=== PATIENT | male | born 1955 | race Caucasian/White ===

== ENCOUNTER 2020-10-12 17:34 | Outpatient (CLI) | payer MEDICARE, SELFPAY | END 2020-10-12 17:35 | disposition home or self-care (01) | LOC: ANHCOVIDVC 17:34 | PROVIDERS: PCP Internal Medicine | DX: Z23 Encounter for immunization (principal) | CPT/HCPCS: 0001A; 91300 ==

== ENCOUNTER 2020-11-02 17:35 | Outpatient (CLI) | payer MEDICARE, SELFPAY | END 2020-11-02 17:36 | disposition home or self-care (01) | LOC: ANHCOVIDVC 17:35 | PROVIDERS: PCP Internal Medicine | DX: Z23 Encounter for immunization (principal) | CPT/HCPCS: 0002A; 91300 ==

== ENCOUNTER 2021-03-25 09:17 | Inpatient (IN) | payer MEDICARE, MEDICAID, SELFPAY ==
[2021-03-25] VITALS (12 sets, daily range): BP systolic 97–121; BP diastolic 60–77; PULSE 57–84; RESP 14–20; TEMP 36.5–36.9; O2SAT 95–100; BMI 17.7
--- NOTE | ~2021-03-25 | XR_ITS ---
XR chest 2V 03/25/2021 11:03 Indication: Weight loss, nausea and vomiting Procedure: 2 view chest Comparison: No prior studies for comparison. Findings: Patchy bibasilar infiltrates, suspicious for pneumonia. Heart size normal. The lungs are hy perinflated which is consistent with, but not diagnostic of chronic obstructive pulmonary disease. Th ere is evidence for chronic granulomatous disease. No significant pleural effusion or pneumothorax. Impression: 1: Patchy bibasilar infiltrates, suspicious for pneumonia. Reviewed, dictated and finalized at location A. Impression: 1: Patchy bibasilar infiltrates, suspicious for pneumonia.
--- NOTE | ~2021-03-25 | US_ITS ---
EXAMINATION: US renal BI EXAM DATE: 03/26/2021 09:07 INDICATION: Acute kidney insufficiency. TECHNIQUE: Multiple grayscale and Doppler images of the kidneys were obtained (by a technologist who performed the scan) and subsequently reviewed. There is no prior study for comparison. FINDINGS: Right kidney: There is normal contour and echogenicity. It measures 8.8 x 6.0 x 4.8 centimeters. 6 m m cyst. There is no hydronephrosis. Left kidney: There is normal contour and echogenicity. It measures 11.3 x 5.1 x 5.5 centimeters. Th ere are no focal renal lesions identified. There is no hydronephrosis. Bladder unremarkable. IMPRESSION: 1. Sonographically unremarkable kidneys. Reviewed, dictated and finalized at location A.
--- NOTE | ~2021-03-25 | CT_ITS ---
EXAMINATION: CT chest abdomen pelvis wo con EXAM DATE: 03/25/2021 10:55 INDICATION: Weight loss . TECHNIQUE: Spiral CT of the chest, abdomen and pelvis was performed without contrast. Axial, lara l and sagittal images chest, abdomen and pelvis were reviewed. Coronal maximum intensity pixel image s of chest reviewed. The dose-length product (DLP) for this examination was 340.86 mGy-cm. The expo sure was tailored according to patient size (auto mA exposure control), and iterative reconstruction (ASIR) was used as additional dose reduction technique. There is no prior study for comparison. FINDINGS: CHEST: The lungs are hyperinflated which can be seen with chronic obstructive pulmonary disease (a c linical diagnosis of functional impairment), but is not diagnostic of it. There is mild to moderate e mphysema. Biapical scarring. Scattered bibasilar regions of ill-defined tree-in-bud airspace disease. This pattern typically seen with endobronchial spread of infectious process. Differential diagnosis includes aspiration, postinfectious residua, TB/FLORINA, hypersensitivity pneumonitis. There are no pleural or pericardial effusions. There is some endobronchial debris in right lower lo be segmental bronchi. There is no mediastinal, hilar or axillary lymphadenopathy. There is no pneu mothorax. Narrow cardiac silhouette from the hyperinflated lungs. Patient may have coronary artery stents. Calcified right hilar lymph nodes from prior granulomatous process. ABDOMEN PELVIS: Liver and splenic granulomata. Adrenal glands, pancreas are unremarkable. The gallbl adder is contracted but otherwise unremarkable. There is no nephrolithiasis or hydronephrosis. The prostate is unremarkable. Calcified vasa deferentia, possible diabetes. The bladder is unremarkable . There is no retroperitoneal or pelvic lymphadenopathy. There is moderate scattered arteriosclero tic disease. There are no findings to suggest appendicitis. The stomach and small bowel are unremarkable. There is moderate amount of colonic stool. There is moderate sigmoid colonic diverticulosis. There is no a djacent inflammatory change to suggest diverticulitis. No free intraperitoneal gas. There are no o steoblastic or osteolytic lesions identified. IMPRESSION: 1. Scattered regions tree-in-bud airspace disease often indicating endobronchial spread of infection such as tuberculosis or FLORINA. Some other possibilities above. 2. Emphysema and hyperinflation. 3. Moderate colonic stool and sigmoid diverticulosis. Reviewed, dictated and finalized at location B. IMPRESSION: 1. Scattered regions tree-in-bud airspace disease often indicating endobronchi al spread of infection such as tuberculosis or FLORINA. Some other possibilities ab ove. 2. Emphysema and hyperinflation. 3. Moderate colonic stool and sigmoid diverticulosis.
--- NOTE | 2021-03-25 10:02 | ECG_ITS ---
Measurements Intervals [place] Rate: 72 P: 87 [place]: 168 QRS: 57 QRSD: 105 T: 79 QT: 437 QTc: 479 Interpretive Statements SINUS RHYTHM SUPRAVENTRICULAR BIGEMINY POSSIBLE LEFT ATRIAL ENLARGEMENT BORDERLINE T WAVE ABNORMALITY- ANT/HIGH LAT LEADS BASELINE ARTIFACT- II, III ABNORMAL ECG Electronically Signed On 03-25-2021 10:27:34 CDT by Vipul Diaz D.O.
[2021-03-25 10:18] LABS: Hematocrit 41.3 % (42.0-52.0); Hemoglobin 13.9 g/dL (14.0-18.0); Mean Corpuscular HGB Conc 33.7 g/dl (32-36); Mean Corpuscular Hemoglobin 30.3 pg (26-34); Mean Platelet Volume 9.9 fl (7.4-10.4); Platelet Count Result 276 k/mm3 (150-375); Red Blood Count 4.59 M/mm3 (4.6-6.20); Red Cell Distribution Width 13.1 % (11.5-14.5); White Blood Count 20.7 K/mm3 (4.5-10.0)
[2021-03-25 10:36] LABS: Alanine Aminotransferase 22 U/L (4-50); Albumin Level 4.6 g/dL (3.5-5.1); Alkaline Phosphatase 77 U/L (38-126); Aspartate Amino Transferase 28 U/L (17-59); Bilirubin,Total 1.8 mg/dL (0.2-1.3); Blood Urea Nitrogen 68 mg/dL (9-20); Calcium 8.9 mg/dL (8.4-10.2); Carbon Dioxide > 40 mmol/L (22-30); Chloride 67 mmol/L (98-107); Estimated CRCL calculation 28 ml/min; Estimated Glomerular Filt Rate 30; Glucose 311 mg/dL (65-110); Lipase 70 U/L (23-300); Potassium 3.8 mmol/L (3.4-5.0); Sodium 127 mmol/L (137-145)
[2021-03-25 11:15] LABS: Glucose Point of Care 336 mg/dl (65-105)
[2021-03-25] MEDS: SODIUM CHLORIDE 0.9% IV 1,000 ML 999 ML IV CONT ×2 (11:37→12:30)
[2021-03-25 12:09] LABS: Band Neutrophils Percent 1 % (0-6); Lymphocytes Absolute Manual 0.62 K/mm3 (1.1-4.5); Monocytes Absolute Manual 1.03 K/mm3 (0.1-0.90); Monocytes Percent Manual 5 % (3-9); Neutrophils Absolute Manual 19.04 K/mm3 (1.3-6.7); Neutrophils Percent Manual 91 % (46-73); Platelet Estimate Adequate (Adequate); Total Cells Counted 100
[2021-03-25 13:01] LABS: Lactic Acid Reflex 2.7 mmol/L (0.7-2.1)
[2021-03-25 13:03] LABS: Add Urine Microscopic? YES; Appearance Urine Clear (Clear); Bilirubin Urine Negative (Negative); Blood Urine Negative (Negative); Color Urine Yellow (Yellow); Glucose Urine UA 1+ mg/dL (Negative); Hyaline Casts Urine 20-29 /lpf; Ketones Urine Trace mg/dL (Negative); Leukocyte Esterase Ur Negative LEU/UL (Negative); Mucus Urine Rare /lpf; Nitrate Urine Negative (Negative); Protein Urine 2+ mg/dL (Negative); RBC Urine 0-2 /hpf (0-2); Specific Grav Ur 1.017 (1.001-1.035); Urobilinogen Urine Negative mg/dL (<2.0); WBC Urine 0-3 /hpf
--- NOTE | 2021-03-25 13:11 | ED.NAVMDI ---
HPI - Nausea/Vomiting/Diarrhea General Chief complaint: Nausea/Vomiting/Diarrhea <Trevon Cannon PA-C - Last Filed: 03/25/21 19:40> Stated complaint: Vomiting <Trevon Cannon PA-C - Last Filed: 03/25/21 19:40> Time Seen by Provider: 03/25/21 10:09 <Trevon Cannon PA-C - Last Filed: 03/25/21 19:40> Source: patient <RL Hastings Last Filed: 03/25/21 19:40> Mode of arrival: ambulatory <RL Hastings Last Filed: 03/25/21 19:40> Limitations: no limitations <RL Hastings Last Filed: 03/25/21 19:40> History of Present Illness HPI Narrative: Patient presents with chief complaint of nausea, vomiting, progressive weakness and weight loss over the past month. Patient states that he vomits after eating. He states he has felt cold lately, but has not documented any fevers. Patient sister reports that he has lost 10 to 11 pounds over the past month. Patient states that he has diffuse abdominal pain. He reports very minimal bowel movements over the past few weeks. Patient reports that he has seen his doctor but has not had any testing or imaging performed. Patient denies any chest pain. He reports at times he feels short of breath but not presently. Patient denies any known medical conditions besides diabetes. Patient sisters report that he does have a learning disability. <Trevon Cannon PA-C - Last Filed: 03/25/21 19:40> Related Data Home medications: Home Medications Medication Instructions Recorded Confirmed aspirin 81 mg tablet,delayed 81 mg PO DAILY 06/19/19 03/25/21 release blood-glucose sensor [Dexcom G6 03/25/21 03/25/21 Sensor] insulin aspart U-100 [Novolog 6 unit SUBCUT TIDWMEAL 03/25/21 03/25/21 Flexpen U-100 Insulin] insulin glargine [Lantus Solostar 16 unit SUBCUT HS 03/25/21 03/25/21 U-100 Insulin] insulin lispro 3 unit SUBCUT DAILY 03/25/21 03/25/21 lisinopril 2.5 mg PO DAILY 03/25/21 03/25/21 pravastatin 80 mg PO HS 03/25/21 03/25/21 <Trevon Cannon PA-C - Last Filed: 03/25/21 19:40> Allergies/Adverse reactions: Allergies Allergy/AdvReac Type Severity Reaction Status Date / Time No Known Allergies Allergy Verified 03/25/21 09:33 <Trevon Cannon PA-C - Last Filed: 03/25/21 19:40> Review of Systems Review of Systems: CONSTITUTIONAL: Reports weight loss denies fever, chills, or sweats. EYES: Denies visual changes, redness, or discharge. ENT: Denies rhinorrhea, congestion, sore throat, or otalgia. CARDIOVASCULAR: Denies chest pain, palpitations, or edema. RESPIRATORY: Reports intermittent dyspnea- not currently Denies cough GASTROINTESTINAL: Reports abdominal pain, nausea, vomiting, denies diarrhea. GENITOURINARY: Denies dysuria or hematuria. SKIN: Denies rash or itching. MUSCULOSKELETAL: Denies back pain, joint pain, or myalgia. NEUROLOGIC: Denies headache, numbness, dizziness, or weakness. PSYCHIATRIC: Denies anxiety or depression. <Trevon Cannon PA-C - Last Filed: 03/25/21 19:40> [facility] Past Medical History Medical History: Medical History (Updated 03/25/21 @ 19:39 by Trevon Cannon PA-C) Dysphagia Encounter for feeding tube placement History of gastrostomy tube placement Which has been removed Hyperlipidemia Type 1 diabetes mellitus with hyperglycemia <Trevon Cannon PA-C - Last Filed: 03/25/21 19:40> Surgical History Surgical History: Surgical History (Updated 03/25/21 @ 18:23 by Paola Snow NP) H/O knee surgery Broken knee 12/2019 left knee History of cataract extraction <Trevon Cannon PA-C - Last Filed: 03/25/21 19:40> Family History Family History: Family History Sibling Diabetes mellitus Family history of lung cancer Father Family history of cardiovascular disease Heart disease Mother Diabetes mellitus Hypertension Family history of thyroid problem <Trevon Cannon PA-C - Last Filed: 09
[2021-03-25 15:47] LABS: Reflex Lactic Acid Yes or No Add Lactic
[2021-03-25 17:23] LABS: Lactic Acid 2.2 mmol/L (0.7-2.1)
--- NOTE | 2021-03-25 17:26 | PC.NURSE ---
1724-REPORT TO ALESIA NEAL ON 3 MED/SURG. REQUESTED WE HOLD PATIENT IN ED WHILE HOODS SECURED FROM DIRECTOR OF COLLECTIONS. UPDATE TO CHARGE NURSE.
[2021-03-25 18:03] LABS: HIV 1/2 Ab P24 Ag Result Negative (Negative)
--- NOTE | 2021-03-25 18:10 | PM.IMHP ---
H&P: HPI History of Present Illness Date/Time: 03/25/21 18:10 this is a 65-year-old diabetic male patient who has had some GI symptoms in the past and had a G-tube in the past. The patient stated that he has been nauseated on and off for the last month. The patient stated that he is not able to keep any food down. He has not seen a GI doctor in quite some time. The patient is only 65.9 kg. It looks like the patient saw his provider on 01/12/2021 for wellness check. Last A1c was 10.1 on 09/04/2020. The patient is answering questions but he is mentally delayed. His white count is noted to be 20.7. H&H is 13.9 and 41.3. Creatinine 2.2. Blood sugar 336. Lactic acid 2.2. Sodium is 127. The patient was started on IV fluids and azithromycin in the emergency room. Chest x-ray was read as patchy bibasilar infiltrates suspicious for pneumonia. Chest abdomen pelvis CT was read as the following. Scattered regions tree-in-bud airspace disease often indicating endobronchial spread of infection such as tuberculosis or FLORINA. Some other possibilities above. 2. Emphysema and hyperinflation. 3. Moderate colonic stool and sigmoid diverticulosis. Pulmonary has been consulted. Dr. Elias recommended azithromycin, Rocephin and Levaquin. He also recommended acid fast sputum specimen. The patient is being admitted for observation on the date of service 03/25/2021. Chief Complaint: Nausea and vomiting Review of Systems Review of Systems: All systems reviewed & are unremarkable except as noted in HPI and below Constitutional: Constitutional: Reports as per HPI and Reports no additional constitutional complaints Eyes: Eyes: Reports as per HPI and Reports no additional eye complaints ENT: Reports system reviewed and no additional complaints, except as documented and Reports Normal hearing present Cardiovascular: Cardiovascular: Reports no additional cardiovascular complaints Respiratory: Respiratory: Reports no additional respiratory complaints and Reports no additional respiratory complaints Gastrointestinal: Gastrointestinal: Reports as per HPI and Reports no additional gastrointestinal complaints Musculoskeletal: Musculoskeletal: Reports no additional musculoskeletal complaints Integumentary/Breasts: Skin/Breast: Reports system reviewed and no additional complaints, except as docu and Reports as per HPI Neurologic: Reports system reviewed and no additional complaints, except as documented, Reports as per HPI and Reports Normal hearing present Psychiatric: Psychiatric: Reports no additional psychiatric complaints and Reports as per HPI Endocrine: Endocrine: Reports no additional endocrine complaints Hematologic/Lymphatic: Hematologic/Lymphatic: Reports no additional hematologic/lymphatic complaints Allergic/Immunologic: Allergic/Immunologic: Reports no additional allergic/immunologic complaints [facility] Past Medical History Medical History (Updated 03/25/21 @ 18:37 by Paola Snow NP) Dysphagia Encounter for feeding tube placement History of gastrostomy tube placement Which has been removed Hyperlipidemia Type 1 diabetes mellitus with hyperglycemia Surgical History Surgical History (Updated 03/25/21 @ 18:23 by Paola Snow NP) H/O knee surgery Broken knee 12/2019 left knee History of cataract extraction Family History Family History Sibling Diabetes mellitus Family history of lung cancer Father Family history of cardiovascular disease Heart disease Mother Diabetes mellitus Hypertension Family history of thyroid problem Social History Social History (Updated 03/25/21 @ 18:24 by Paola Snow NP) Social History: The patient lives with his brother and sister. The patient is a lifelong nonsmoker. He does not use any alcohol marijuana or illicit drugs. 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 The patient stated that his brother and sister would
--- NOTE | 2021-03-25 18:52 | ADMGEN ---
This patient, Payam Mars, was admitted to [facility] Surg Room 311-01 at 1820. Patient/family oriented to hospital policies and general routines including ID bracelet, bed and alarms, visiting hours, pain management, procedures, bathroom and other care routines, personal items, smoking policy, room service/diet, and visiting hours. Information on how to activate the Rapid Response Team has been discussed. Patient/Family are encouraged to report perceived risks to care and to ask questions if they do not understand what they are told or what they should do.
[2021-03-25 19:23] LABS: Anion Gap 12 mmol/L (8-16); Blood Urea Nitrogen 65 mg/dL (9-20); Calcium 7.8 mg/dL (8.4-10.2); Carbon Dioxide 37 mmol/L (22-30); Chloride 76 mmol/L (98-107); Estimated CRCL calculation 32 ml/min; Estimated Glomerular Filt Rate 38; Glucose 352 mg/dL (65-110); Potassium 3.6 mmol/L (3.4-5.0); Sodium 125 mmol/L (137-145)
[2021-03-25] MEDS: PANTOPRAZOLE SODIUM IV 40 MG VIAL IV PUSH (20:51)
[2021-03-25] MEDS: SODIUM CHLORIDE 0.9% IV 1,000 ML 100 ML IV CONT (21:11)
[2021-03-25 22:47] LABS: Glucose Point of Care 303 mg/dl (65-105)
[2021-03-26] MEDS: PRAVASTATIN SODIUM 20 MG TABLET 80 MG PO ×2 (02:11→20:43)
[2021-03-26] MEDS: INSULIN GLARGINE (*BKC) 100 UNITS/ML 16 UNITS SUB-Q (02:12)
[2021-03-26 04:12] LABS: Sodium Urine Random 22 meq/L
[2021-03-26 05:56] LABS: Basophils Percent Auto 0.3 % (0.2-1.2); Eosinophils Absolute Auto 0.1 K/mm3 (0-0.3); Eosinophils Percent Auto 0.9 % (0-4.4); Hemoglobin 11.8 g/dL (14.0-18.0); Immature Granulocyte Absolute 0.04 K/mm3 (0.00-0.031); Immature Granulocyte Percent A 0.3 % (0-0.5); Lymphocytes Absolute Auto 0.53 K/mm3 (0.9-3.2); Lymphocytes Percent Auto 3.8 % (18.3-44.2); Mean Corpuscular HGB Conc 34.7 g/dl (32-36); Mean Corpuscular Hemoglobin 30.8 pg (26-34); Mean Corpuscular Volume 88.8 fl (80-100); Mean Platelet Volume 9.6 fl (7.4-10.4); Monocytes Percent Auto 7.4 % (2.6-8.5); Neutrophils Absolute Auto 12.1 K/mm3 (1.3-6.7); Neutrophils Percent Auto 87.3 % (45.5-73.1); Platelet Count Result 185 k/mm3 (150-375); Red Blood Count 3.83 M/mm3 (4.6-6.20); Red Cell Distribution Width 12.8 % (11.5-14.5); White Blood Count 13.9 K/mm3 (4.5-10.0)
[2021-03-26 06:00] VITALS: BP 118/70; PULSE 65; RESP 18; TEMP 36.7; O2SAT 97
[2021-03-26 06:19] LABS: Hemoglobin A1C 7.5 % (<5.7)
[2021-03-26 06:25] LABS: Alanine Aminotransferase 12 U/L (4-50); Albumin Level 3.4 g/dL (3.5-5.1); Alkaline Phosphatase 59 U/L (38-126); Anion Gap 4 mmol/L (8-16); Aspartate Amino Transferase 22 U/L (17-59); Bilirubin,Total 0.7 mg/dL (0.2-1.3); Blood Urea Nitrogen 54 mg/dL (9-20); Calcium 7.8 mg/dL (8.4-10.2); Carbon Dioxide 39 mmol/L (22-30); Chloride 83 mmol/L (98-107); Estimated CRCL calculation 36 ml/min; Estimated Glomerular Filt Rate 43; Glucose 328 mg/dL (65-110); Lactate Dehydrogenase 277 U/L (313-618); Lipase 55 U/L (23-300); Magnesium 2.4 mg/dL (1.6-2.3); Potassium 3.4 mmol/L (3.4-5.0); Sodium 126 mmol/L (137-145)
[2021-03-26 08:30] LABS: Glucose Point of Care 281 mg/dl (65-105)
[2021-03-26] MEDS: INSULIN ASPART (*BKC) 100 UNITS/ML SUB-Q ×3 (08:52→17:53)
[2021-03-26] MEDS: ASPIRIN 81 MG ENTERIC TABLET PO (08:53)
[2021-03-26] MEDS: PANTOPRAZOLE SODIUM IV 40 MG VIAL IV PUSH ×2 (08:54→20:45)
[2021-03-26] MEDS: SODIUM CHLORIDE 0.9% IV 1,000 ML 100 ML IV CONT ×2 (08:59→20:42)
--- NOTE | 2021-03-26 09:56 | PM.IMPN ---
Progress Note: A&P Assessment and Plan (1) Pneumonia: Code(s): J18.9 - Pneumonia, unspecified organism Status: Acute Assessment and Plan: I did speak with the video game creator Dr. Elias who recommended that we get daily sputums x3 days in the a.m.. Per Dr. Elias recommendation the patient be placed on all 3 antibiotics which includes azithromycin, Rocephin, as well as Levaquin. Blood and sputum cultures are pending. Patient is being checked for TB and legionnaire. He is also being checked for HIV. Patient has leukocytosis with a white count of 20.7. (2) Suspected COVID-19 virus infection: Code(s): Z20.822 - Contact with and (suspected) exposure to COVID-19 Status: Acute Assessment and Plan: The patient is on droplet and contact isolation. (3) Type 1 diabetes mellitus with hyperglycemia: Code(s): E10.65 - Type 1 diabetes mellitus with hyperglycemia Status: Chronic Assessment and Plan: Accu-Cheks AC and HS. Sliding scale insulin. Continue Lantus. Check A1c (4) Essential hypertension: Code(s): I10 - Essential (primary) hypertension Status: Acute Assessment and Plan: Continue with home medications (5) Hyperlipidemia: Code(s): E78.5 - Hyperlipidemia, unspecified Status: Acute Assessment and Plan: Continue with home medications. (6) Failure to thrive: Status: Acute Assessment and Plan: Dietitian consultation would greatly be appreciated. The patient also has some dysphagia. The patient has had a G-tube in the past. We can attempt to place the patient on protein supplements PPI. (7) Acute kidney injury: Code(s): N17.9 - Acute kidney failure, unspecified Status: Acute Assessment and Plan: Continue with IV fluid into renal ultrasound. Recheck in the a.m. Additional Plan 03/26/21 renal fxn improving still w hyponatremia cont IVFs BG above goal on LD ISS increase Basal insulin to 15U BID on azithro, levaquin, and rocephin COVID pending Subjective Date/time seen: 03/26/21 09:56 pt ok reports weight loss secondary to PO intolerance w vomiting for one month spoke w RN pt has cognitive impairment cared for by his siblings. He has been eating 100% of meals without vomiting or other GI complaints Exam Narrative: GEN: NAD, cooperative HEENT: NCAT, MMM, EOMI Neck: no JVD Heart: S1S2 RRR Lungs: crackles Abd: soft, NT, ND, bowel sounds normoactive Ext: moves all, no cyanosis, no clubbing, no edema Neuro: nurse practical intact no focal motor deficits appreciated Psych: mood reduced, affect congruent Objective Data Vital Signs Vital Signs: Vital Signs - 24 hr 03/25/21 10:22 03/25/21 10:23 03/25/21 11:37 Temperature Pulse Rate 77 83 57 L Respiratory Rate 18 Blood Pressure 97/60 L 114/77 112/66 Pulse Oximetry 97 03/25/21 12:30 03/25/21 13:30 03/25/21 14:30 Temperature Pulse Rate 63 61 63 Respiratory Rate 16 15 20 Blood Pressure 114/64 117/62 119/71 Pulse Oximetry 99 99 98 03/25/21 15:04 03/25/21 16:30 03/25/21 17:04 Temperature Pulse Rate 67 70 68 Respiratory Rate 14 20 20 Blood Pressure 105/64 121/68 116/73 Pulse Oximetry 95 100 98 03/25/21 18:11 03/25/21 22:00 03/26/21 06:00 Temperature 98.4 F 98.0 F Pulse Rate 74 70 65 Respiratory Rate 20 14 18 Blood Pressure 115/70 119/67 118/70 Pulse Oximetry 96 95 97 Intake/Output Intake/Output: Intake & Output 03/23/21 03/24/21 03/25/21 03/26/21 23:59 23:59 23:59 23:59 Intake Total 2450 1350 Output Total 100 600 Balance 2350 750 Meds/Results Medications: Active Medications Generic Name Dose Route Start Last Admin Trade Name Freq PRN Reason Stop Dose Admin Aspirin 81 mg 03/26/21 09:00 03/26/21 08:53 Aspirin 81 Mg Enteric Tablet PO 81 mg DAILY ANJUM Administration Dextrose 12.5 gm 03/25/21 18:04 Dextrose 50% 25 Gm/50 Ml Syringe IV PUSH PRN PRN Hypoglycemia
[2021-03-26 11:52] LABS: Glucose Point of Care 326 mg/dl (65-105)
[2021-03-26 12:00] VITALS: BP 122/72; PULSE 63; RESP 14; TEMP 36.6; O2SAT 96
[2021-03-26] MEDS: INSULIN GLARGINE (*BKC) 100 UNITS/ML 15 UNITS SUB-Q ×2 (12:38→17:54)
[2021-03-26 14:55] VITALS: BP 122/72; PULSE 63; RESP 14; TEMP 36.6; O2SAT 96
[2021-03-26] MEDS: DOCUSATE SODIUM 100 MG CAPSULE PO ×2 (15:27→20:42)
[2021-03-26 16:43] VITALS: BP 125/68; PULSE 63; RESP 12; TEMP 37; O2SAT 97
[2021-03-26 17:11] LABS: Glucose Point of Care 329 mg/dl (65-105)
--- NOTE | 2021-03-26 17:53 | WPDGIPROGNO ---
Progress Note: A&P Additional Plan GI Valente Full consult dictated Consider addition of Reglan if N/V persist #[id number] Subjective Date/time seen: 03/26/21 17:53 Objective Data Vital Signs Vital Signs: Vital Signs - 24 hr 03/25/21 18:11 03/25/21 22:00 03/26/21 06:00 Temperature 36.9 C 36.7 C Pulse Rate 74 70 65 Respiratory Rate 20 14 18 Blood Pressure 115/70 119/67 118/70 Pulse Oximetry 96 95 97 03/26/21 12:00 03/26/21 14:55 03/26/21 16:43 Temperature 36.6 C 36.6 C 37.0 C Pulse Rate 63 63 63 Respiratory Rate 14 14 12 Blood Pressure 122/72 122/72 125/68 Pulse Oximetry 96 96 97 Intake/Output Intake/Output: Intake & Output 03/23/21 03/24/21 03/25/21 03/26/21 23:59 23:59 23:59 23:59 Intake Total 2450 2500 Output Total 100 2560 Balance 2350 -60 Meds/Results Medications: Active Medications Generic Name Dose Route Start Last Admin Trade Name Freq PRN Reason Stop Dose Admin Aspirin 81 mg 03/26/21 09:00 03/26/21 08:53 Aspirin 81 Mg Enteric Tablet PO 81 mg DAILY ANJUM Administration Dextrose 12.5 gm 03/25/21 18:04 Dextrose 50% 25 Gm/50 Ml Syringe IV PUSH PRN PRN Hypoglycemia Protocol Docusate Sodium 100 mg 03/26/21 15:00 03/26/21 15:27 Docusate Sodium 100 Mg Capsule PO 100 mg Q12HR ANJUM Administration Glucagon 1 mg 03/25/21 18:04 Glucagon For Inj 1 Mg Vial IM PRN PRN Hypoglycemia Protocol Glucose 15 gm 03/25/21 18:04 Glucose Oral Gel 15 Gm Of Glucse In 37.5 Gm Tube PO PRN PRN Hypoglycemia Protocol Azithromycin 250 mg/ Dextrose 250 mls @ 250 mls/hr 03/26/21 14:00 03/26/21 15:25 IVPB 250 mls/hr Q24H ANJUM Administration Levofloxacin/Dextrose 750 mg in 150 mls @ 100 mls/hr 03/27/21 16:00 Levaquin 750 Mg/D5w 150 Ml IVPB Q24H ANJUM Ceftriaxone Sodium/Dextrose 1 gm in 50 mls @ 100 mls/hr 03/25/21 19:00 03/25/21 21:41 Rocephin 1 Gm/D5w 50 Ml IVPB Infused Q24H ANJUM Infusion Dextrose 1,000 mls @ 100 mls/hr 03/25/21 18:04 Dextrose 5% 1,000 Ml IVPB PRN PRN Hypoglycemia Protocol Sodium Chloride 1,000 mls @ 100 mls/hr 03/25/21 18:40 03/26/21 08:59 Normal Saline Iv IV CONT 100 mls/hr .Q10H ANJUM Administration Insulin Aspart 2 - 5 units 03/26/21 08:00 03/26/21 12:37 Insulin Aspart (*Bkc) 100 Units/Ml SUB-Q 4 units TIDWM ANJUM Administration Protocol Insulin Glargine 15 units 03/26/21 10:05 03/26/21 12:38 Insulin Glargine (*Bkc) 100 Units/Ml SUB-Q 15 units BID ANJUM Administration Pantoprazole Sodium 40 mg 03/25/21 21:00 03/26/21 08:54 Pantoprazole Sodium Iv 40 Mg Vial IV PUSH 40 mg Q12HR ANJUM Administration Pravastatin Sodium 80 mg 03/25/21 21:00 03/26/21 02:11 Pravastatin Sodium 20 Mg Tablet PO 80 mg HS ANJUM Administration Radiology Results: ITS Impressions Chest/Abdomen/Pelvis CT 03/25/21 11:01 IMPRESSION: 1. Scattered regions tree-in-bud airspace disease often indicating endobronchial spread of infection such as tuberculosis or FLORINA. Some other possibilities above. 2. Emphysema and hyperinflation. 3. Moderate colonic stool and sigmoid diverticulosis. ADDENDUM: 03/25/21 1152 Addition to indication. Nausea, vomiting, generalized abdominal pain. Constipation. Chest X-Ray 03/25/21 11:08 Impression: 1: Patchy bibasilar infiltrates, suspicious for pneumonia. ADDENDUM: 03/25/21 1141 Addition to indication. Nausea, vomiting, generalized abdominal pain. Constipation. Renal Ultrasound 03/26/21 09:10 IMPRESSION: 1. Sonographically unremarkable kidneys. Labs Labs: Laboratory Results - last 24 hr 03/25/21 03/25/21 03/25/21 16:55 19:00 20:53 WBC RBC Hgb Hct MCV MCH MCHC RDW Plt Count MPV Immature Gran % (Auto) Neut % (Auto) Lymph % (Auto) [place] % (Auto) Eos % (Auto) Baso % (Auto) Lymph # (Auto) M
[2021-03-26 18:03] LABS: SARS-CoV-2 RNA PCR Negative
[2021-03-26 20:00] VITALS: BP 123/71; PULSE 67; RESP 18; TEMP 36.8; O2SAT 98
[2021-03-26 21:17] LABS: Glucose Point of Care 200 mg/dl (65-105)
[2021-03-27] VITALS (7 sets, daily range): BP systolic 110–140; BP diastolic 64–81; PULSE 62–73; RESP 16–18; TEMP 36.7–37.2; O2SAT 95–99
[2021-03-27] MEDS: SODIUM CHLORIDE 0.9% IV 1,000 ML 100 ML IV CONT ×2 (07:00→15:03)
--- NOTE | 2021-03-27 08:11 | PM.IMPN ---
Progress Note: A&P Assessment and Plan (1) Pneumonia: Code(s): J18.9 - Pneumonia, unspecified organism Status: Acute Assessment and Plan: I did speak with the consumer education specialist Dr. Elias who recommended that we get daily sputums x3 days in the a.m.. Per Dr. Elias recommendation the patient be placed on all 3 antibiotics which includes azithromycin, Rocephin, as well as Levaquin. Blood and sputum cultures are pending. Patient is being checked for TB and legionnaire. He is also being checked for HIV. Patient has leukocytosis with a white count of 20.7. (2) Suspected COVID-19 virus infection: Code(s): Z20.822 - Contact with and (suspected) exposure to COVID-19 Status: Acute Assessment and Plan: The patient is on droplet and contact isolation. (3) Type 1 diabetes mellitus with hyperglycemia: Code(s): E10.65 - Type 1 diabetes mellitus with hyperglycemia Status: Chronic Assessment and Plan: Accu-Cheks AC and HS. Sliding scale insulin. Continue Lantus. Check A1c (4) Essential hypertension: Code(s): I10 - Essential (primary) hypertension Status: Acute Assessment and Plan: Continue with home medications (5) Hyperlipidemia: Code(s): E78.5 - Hyperlipidemia, unspecified Status: Acute Assessment and Plan: Continue with home medications. (6) Failure to thrive: Status: Acute Assessment and Plan: Dietitian consultation would greatly be appreciated. The patient also has some dysphagia. The patient has had a G-tube in the past. We can attempt to place the patient on protein supplements PPI. (7) Acute kidney injury: Code(s): N17.9 - Acute kidney failure, unspecified Status: Acute Assessment and Plan: Continue with IV fluid into renal ultrasound. Recheck in the a.m. Additional Plan 03/26/21 renal fxn improving still w hyponatremia cont IVFs BG above goal on LD ISS increase Basal insulin to 15U BID on azithro, levaquin, and rocephin COVID pending 03/27/21 BG at goal COVID negative ruling out for MAC/ TB cont current care [place] improving no GI sxs since admission, seen by GI -> outpt follow up reglan PRN Dr Elias following for possible MAC am labs ordered Subjective Date/time seen: 03/27/21 08:11 pt doing ok has no complaints today, alert oriented to place and self only Exam Narrative: GEN: NAD, cooperative HEENT: NCAT, MMM, EOMI Neck: no JVD Heart: S1S2 RRR Lungs: crackles Abd: soft, NT, ND, bowel sounds normoactive Ext: moves all, no cyanosis, no clubbing, no edema 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: 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 no focal motor deficits appreciated Psych: mood reduced, affect congruent Objective Data Vital Signs Vital Signs: Vital Signs - 24 hr 03/26/21 12:00 03/26/21 14:55 03/26/21 16:43 Temperature 97.9 F 97.9 F 98.6 F Pulse Rate 63 63 63 Respiratory Rate 14 14 12 Blood Pressure 122/72 122/72 125/68 Pulse Oximetry 96 96 97 03/26/21 20:00 03/27/21 00:00 03/27/21 04:00 Temperature 98.3 F 98.8 F 98.4 F Pulse Rate 67 73 64 Respiratory Rate 18 18 18 Blood Pressure 123/71 140/81 123/67 Pulse Oximetry 98 97 99 Intake/Output Intake/Output: Intake & Output 03/24/21 03/25/21 03/26/21 03/27/21 23:59 23:59 23:59 23:59 Intake Total 2450 3800 1800 Output Total 100 2560 1400 Balance 2350 1240 400 Meds/Results Medications: Active Medications Generic Name Dose Route Start Last Admin Trade Name Freq PRN Reason Stop Dose Admin Aspirin 81 mg 03/26/21 09:00 03/26/21 08:53 Aspirin 81 Mg Enteric Tablet PO 81 mg DAILY ANJUM Administration Dextrose 12.5 gm 03/25/21 18:04 Dextrose 50% 25 Gm/50 Ml Syringe IV PUSH PRN PRN Hypoglycemia Protocol Docusate Sodium 100 mg 03/26/21 15:00 03/26/21 20:42 Docusate Sodium 100 Mg Capsule PO 100 mg Q12HR ANJUM Administration Glucagon 1 mg 03/25/21 18:04 Glucagon For Inj 1 Mg Vial IM PRN PRN Hy
[2021-03-27 08:35] LABS: Glucose Point of Care 168 mg/dl (65-105)
[2021-03-27] MEDS: ASPIRIN 81 MG ENTERIC TABLET PO (10:13)
[2021-03-27] MEDS: polyethylene glycoL 3350 17 GM POWD.PACK PO (10:13)
[2021-03-27] MEDS: INSULIN GLARGINE (*BKC) 100 UNITS/ML 15 UNITS SUB-Q ×2 (10:13→18:08)
[2021-03-27] MEDS: PANTOPRAZOLE SODIUM IV 40 MG VIAL IV PUSH ×2 (10:13→20:41)
[2021-03-27] MEDS: DOCUSATE SODIUM 100 MG CAPSULE PO ×2 (10:17→20:41)
[2021-03-27 12:11] LABS: Glucose Point of Care 228 mg/dl (65-105)
[2021-03-27] MEDS: INSULIN ASPART (*BKC) 100 UNITS/ML SUB-Q ×2 (12:12→18:07)
--- NOTE | 2021-03-27 13:43 | WPDGIPROGNO ---
Progress Note: A&P Additional Plan GI [facility] 27 Mar 2021 Denies AP, N, V, D, C. Adeline po VSS soft/NT CV-19 negative 03-25-2021 A/P A. Nausea/Vomiting: - Likely multifactorial - Improving - Consider Reglan if needed B. Personal history of colon polyps in 2013: - No follow up done on this patient with high-risk polyps in 2013 - Colonoscopy when stable per [facility] C. Abnormal imaging-digestive: diverticulosis on CT; observe. Further recommendations per [facility] Thanks, [facility]G [phone] Subjective Date/time seen: 03/27/21 13:43 Objective Data Vital Signs Vital Signs: Vital Signs - 24 hr 03/26/21 14:55 03/26/21 16:43 03/26/21 20:00 Temperature 36.6 C 37.0 C 36.8 C Pulse Rate 63 63 67 Respiratory Rate 14 12 18 Blood Pressure 122/72 125/68 123/71 Pulse Oximetry 96 97 98 03/27/21 00:00 03/27/21 04:00 03/27/21 08:00 Temperature 37.1 C 36.9 C 37.1 C Pulse Rate 73 64 62 Respiratory Rate 18 18 18 Blood Pressure 140/81 123/67 110/78 Pulse Oximetry 97 99 95 03/27/21 12:00 Temperature 36.7 C Pulse Rate 64 Respiratory Rate 18 Blood Pressure 121/76 Pulse Oximetry 95 Intake/Output Intake/Output: Intake & Output 03/24/21 03/25/21 03/26/21 03/27/21 23:59 23:59 23:59 23:59 Intake Total 2450 3800 2040 Output Total 100 2560 1400 Balance 2350 1240 640 Meds/Results Medications: Active Medications Generic Name Dose Route Start Last Admin Trade Name Freq PRN Reason Stop Dose Admin Aspirin 81 mg 03/26/21 09:00 03/27/21 10:13 Aspirin 81 Mg Enteric Tablet PO 81 mg DAILY ANJUM Administration Dextrose 12.5 gm 03/25/21 18:04 Dextrose 50% 25 Gm/50 Ml Syringe IV PUSH PRN PRN Hypoglycemia Protocol Docusate Sodium 100 mg 03/26/21 15:00 03/27/21 10:17 Docusate Sodium 100 Mg Capsule PO 100 mg Q12HR ANJUM Administration Glucagon 1 mg 03/25/21 18:04 Glucagon For Inj 1 Mg Vial IM PRN PRN Hypoglycemia Protocol Glucose 15 gm 03/25/21 18:04 Glucose Oral Gel 15 Gm Of Glucse In 37.5 Gm Tube PO PRN PRN Hypoglycemia Protocol Azithromycin 250 mg/ Dextrose 250 mls @ 250 mls/hr 03/26/21 14:00 03/26/21 16:25 IVPB Infused Q24H ANJUM Infusion Levofloxacin/Dextrose 750 mg in 150 mls @ 100 mls/hr 03/27/21 16:00 Levaquin 750 Mg/D5w 150 Ml IVPB Q24H ANJUM Ceftriaxone Sodium/Dextrose 1 gm in 50 mls @ 100 mls/hr 03/25/21 19:00 03/26/21 18:25 Rocephin 1 Gm/D5w 50 Ml IVPB Infused Q24H ANJUM Infusion Dextrose 1,000 mls @ 100 mls/hr 03/25/21 18:04 Dextrose 5% 1,000 Ml IVPB PRN PRN Hypoglycemia Protocol Sodium Chloride 1,000 mls @ 100 mls/hr 03/25/21 18:40 03/27/21 07:00 Normal Saline Iv IV CONT 100 mls/hr .Q10H ANJUM Administration Insulin Aspart 2 - 5 units 03/26/21 08:00 03/27/21 12:12 Insulin Aspart (*Bkc) 100 Units/Ml SUB-Q 2 units TIDWM ANJUM Administration Protocol Insulin Glargine 15 units 03/26/21 10:05 03/27/21 10:13 Insulin Glargine (*Bkc) 100 Units/Ml SUB-Q 15 units BID ANJUM Administration Pantoprazole Sodium 40 mg 03/25/21 21:00 03/27/21 10:13 Pantoprazole Sodium Iv 40 Mg Vial IV PUSH 40 mg Q12HR ANJUM Administration Polyethylene Glycol 17 gm 03/27/21 09:00 03/27/21 10:13 Polyethylene Glycol 3350 17 Gm Powd.Pack PO 03/29/21 10:00 17 gm QAM ANJUM Administration Pravastatin Sodium 80 mg 03/25/21 21:00 03/26/21 20:43 Pravastatin Sodium 20 Mg Tablet PO 80 mg HS ANJUM Administration Radiology Results: ITS Impressions Chest/Abdomen/Pelvis CT 03/25/21 11:01 IMPRESSION: 1. Scattered regions tree-in-bud airspace disease often indicating endobronchial spread of infection such as tuberculosis or FLORINA. Some other possibilities above. 2. Emphysema and hyperinflation. 3. Moderate colonic stool and sigmoid diverticulosis. ADDENDUM: 03/25/21 1152 Addition to indication. Nausea, vomiting, generalized abdominal pain. C
--- NOTE | 2021-03-27 15:57 | PC.NURSE ---
Critical lab called r/t patients stat BMP results. Sodium of 109. Glucose of 1238. Potassium of 2.6. Lab called critical at 1546. Dr. Gomez made aware at 1548. Dr. Gomez to put in STAT CMP to clarify results.
[2021-03-27 16:22] LABS: Alanine Aminotransferase 12 U/L (4-50); Albumin Level 3.1 g/dL (3.5-5.1); Alkaline Phosphatase 64 U/L (38-126); Anion Gap 5 mmol/L (8-16); Aspartate Amino Transferase 16 U/L (17-59); Bilirubin,Total 0.3 mg/dL (0.2-1.3); Blood Urea Nitrogen 28 mg/dL (9-20); Calcium 7.8 mg/dL (8.4-10.2); Carbon Dioxide 35 mmol/L (22-30); Chloride 95 mmol/L (98-107); Estimated CRCL calculation 57 ml/min; Estimated Glomerular Filt Rate > 60; Glucose 245 mg/dL (65-110); Potassium 3.4 mmol/L (3.4-5.0); Sodium 135 mmol/L (137-145)
--- NOTE | 2021-03-27 16:24 | PC.NURSE ---
Dr. Gomez made aware results of CMP redraw noted no critical results.
[2021-03-27 17:01] LABS: Glucose Point of Care 227 mg/dl (65-105)
[2021-03-27] MEDS: PRAVASTATIN SODIUM 20 MG TABLET 80 MG PO (20:41)
[2021-03-27 21:15] LABS: Glucose Point of Care 204 mg/dl (65-105)
[2021-03-28 04:00] VITALS: BP 132/75; PULSE 64; RESP 18; TEMP 36.7; O2SAT 98
[2021-03-28] MEDS: SODIUM CHLORIDE 0.9% IV 1,000 ML 100 ML IV CONT ×2 (04:40→16:52)
[2021-03-28 06:43] LABS: Basophils Absolute Auto 0.1 K/mm3 (0.0-0.1); Basophils Percent Auto 0.6 % (0.2-1.2); Eosinophils Absolute Auto 0.2 K/mm3 (0-0.3); Eosinophils Percent Auto 2.6 % (0-4.4); Hematocrit 35.1 % (42.0-52.0); Hemoglobin 11.5 g/dL (14.0-18.0); Immature Granulocyte Absolute 0.03 K/mm3 (0.00-0.031); Immature Granulocyte Percent A 0.3 % (0-0.5); Lymphocytes Absolute Auto 0.85 K/mm3 (0.9-3.2); Lymphocytes Percent Auto 9.6 % (18.3-44.2); Mean Corpuscular HGB Conc 32.8 g/dl (32-36); Mean Corpuscular Hemoglobin 30.8 pg (26-34); Mean Corpuscular Volume 94.1 fl (80-100); Monocytes Absolute Auto 0.8 K/mm3 (0.1-0.6); Monocytes Percent Auto 9.4 % (2.6-8.5); Neutrophils Absolute Auto 6.8 K/mm3 (1.3-6.7); Neutrophils Percent Auto 77.5 % (45.5-73.1); Platelet Count Result 183 k/mm3 (150-375); Red Blood Count 3.73 M/mm3 (4.6-6.20); Red Cell Distribution Width 13.1 % (11.5-14.5); White Blood Count 8.8 K/mm3 (4.5-10.0)
--- NOTE | 2021-03-28 07:03 | WPDGIPROGNO ---
Progress Note: A&P Assessment and Plan (1) Nausea: Code(s): R11.0 - Nausea Status: Acute Assessment and Plan: this began about 1 month ago. He cannot attribute it to any change in medication. He will be scheduled for EGD once he has been cleared in terms of ruling out activetuberculosis (2) Weight loss: Code(s): R63.4 - Abnormal weight loss Status: Acute Assessment and Plan: this secondary to his poor appetite. CT scan does not show anything to explain these symptoms. Endoscopy possibly tomorrow Subjective Date/time seen: 03/28/21 07:03 Dr. Ambriz's notes were reviewed.the patient reaffirmed his history of having had a poor appetite for the past month. He has lost about 10 lb. He is keeping food down but here at the hospital does not feel like eating much. Currently the area of waiting a sputum to help rule out tuberculosis based on findings on imaging of the chest. Review of Systems Review of Systems: All systems reviewed & are unremarkable except as noted in HPI and below Exam Const: General: cooperative Nutritional Appearance: thin Orientation/consciousness: patient oriented x3 HENMT: Mouth: Yes Normal oral and palatal mucosa present Teeth and gingiva: edentulous GI: Inspection: normal to inspection GI Palp: No abdominal tenderness, Yes Soft to palpation, Yes No hepatosplenomegaly present and No Palpable mass present Auscultation: normal bowel sounds Objective Data Vital Signs Vital Signs: Vital Signs - 24 hr 03/27/21 08:00 03/27/21 12:00 03/27/21 16:00 Temperature 37.1 C 36.7 C 37.2 C Pulse Rate 62 64 64 Respiratory Rate 18 18 16 Blood Pressure 110/78 121/76 119/70 Pulse Oximetry 95 95 96 03/27/21 20:00 03/27/21 23:40 03/28/21 04:00 Temperature 36.9 C 36.9 C 36.7 C Pulse Rate 63 62 64 Respiratory Rate 18 18 18 Blood Pressure 116/65 116/64 132/75 Pulse Oximetry 96 96 98 Intake/Output Intake/Output: Intake & Output 03/25/21 03/26/21 03/27/21 03/28/21 23:59 23:59 23:59 23:59 Intake Total 2450 3800 3710 1700 Output Total 100 2560 1400 1400 Balance 2350 1240 2310 300 Meds/Results Medications: Active Medications Generic Name Dose Route Start Last Admin Trade Name Freq PRN Reason Stop Dose Admin Aspirin 81 mg 03/26/21 09:00 03/27/21 10:13 Aspirin 81 Mg Enteric Tablet PO 81 mg DAILY ANJUM Administration Dextrose 12.5 gm 03/25/21 18:04 Dextrose 50% 25 Gm/50 Ml Syringe IV PUSH PRN PRN Hypoglycemia Protocol Docusate Sodium 100 mg 03/26/21 15:00 03/27/21 20:41 Docusate Sodium 100 Mg Capsule PO 100 mg Q12HR ANJUM Administration Glucagon 1 mg 03/25/21 18:04 Glucagon For Inj 1 Mg Vial IM PRN PRN Hypoglycemia Protocol Glucose 15 gm 03/25/21 18:04 Glucose Oral Gel 15 Gm Of Glucse In 37.5 Gm Tube PO PRN PRN Hypoglycemia Protocol Azithromycin 250 mg/ Dextrose 250 mls @ 250 mls/hr 03/26/21 14:00 03/27/21 15:02 IVPB 250 mls/hr Q24H ANJUM Administration Levofloxacin/Dextrose 750 mg in 150 mls @ 100 mls/hr 03/27/21 16:00 03/27/21 16:32 Levaquin 750 Mg/D5w 150 Ml IVPB 100 mls/hr Q24H ANJUM Administration Ceftriaxone Sodium/Dextrose 1 gm in 50 mls @ 100 mls/hr 03/25/21 19:00 03/27/21 18:37 Rocephin 1 Gm/D5w 50 Ml IVPB Infused Q24H ANJUM Infusion Dextrose 1,000 mls @ 100 mls/hr 03/25/21 18:04 Dextrose 5% 1,000 Ml IVPB PRN PRN Hypoglycemia Protocol Sodium Chloride 1,000 mls @ 100 mls/hr 03/25/21 18:40 03/28/21 04:40 Normal Saline Iv IV CONT 100 mls/hr .Q10H ANJUM Administration Insulin Aspart 3 - 6 units 03/27/21 17:00 03/27/21 18:07 Insulin Aspart (*Bkc) 100 Units/Ml SUB-Q 3 units TIDWM ANJUM Administration Protocol Insulin Glargine 15 units 03/26/21 10:05 03/27/21 18:08 Insulin Glargine (*Bkc) 100 Units/Ml SUB-Q 15 units BID ANJUM Administration Pantoprazole Sodium 40 mg 03/25/21 21
[2021-03-28 07:11] LABS: Anion Gap 5 mmol/L (8-16); Blood Urea Nitrogen 21 mg/dL (9-20); Carbon Dioxide 32 mmol/L (22-30); Chloride 100 mmol/L (98-107); Estimated CRCL calculation 57 ml/min; Estimated Glomerular Filt Rate > 60; Glucose 54 mg/dL (65-110); Potassium 3.5 mmol/L (3.4-5.0); Sodium 137 mmol/L (137-145)
[2021-03-28] MEDS: GLUCOSE ORAL GEL 15 GM OF GLUCSE IN 37.5 GM TUBE PO (07:16)
[2021-03-28 07:52] LABS: Glucose Point of Care 54 mg/dl (65-105)
--- NOTE | 2021-03-28 07:53 | PCAUD ---
Kelley informed bs 53 x2 apple juice given will recheck. Continue to monitor at this time, NNO. insulin held.
[2021-03-28 08:00] VITALS: BP 123/77; PULSE 61; RESP 18; TEMP 36.7; O2SAT 98
[2021-03-28] MEDS: polyethylene glycoL 3350 17 GM POWD.PACK PO (08:35)
[2021-03-28] MEDS: DOCUSATE SODIUM 100 MG CAPSULE PO ×2 (08:35→22:00)
[2021-03-28] MEDS: PANTOPRAZOLE SODIUM IV 40 MG VIAL IV PUSH ×2 (08:35→22:00)
[2021-03-28] MEDS: ASPIRIN 81 MG ENTERIC TABLET PO (08:35)
[2021-03-28 12:00] VITALS: BP 130/60; PULSE 60; RESP 18; TEMP 36.8; O2SAT 95; O2SAT 97
[2021-03-28] MEDS: INSULIN GLARGINE (*BKC) 100 UNITS/ML 15 UNITS SUB-Q ×2 (12:12→16:51)
[2021-03-28 12:28] LABS: Glucose Point of Care 99 mg/dl (65-105)
[2021-03-28 12:28] LABS: Glucose Point of Care 144 mg/dl (65-105)
[2021-03-28 14:12] VITALS: BMI 17.7
--- NOTE | 2021-03-28 14:54 | PM.IMPN ---
Progress Note: A&P Assessment and Plan (1) Pneumonia: Code(s): J18.9 - Pneumonia, unspecified organism Status: Acute Assessment and Plan: Awaiting 3 sputums, wcc much improved. Per Dr. Elias recommendation the patient be placed on all 3 antibiotics which includes azithromycin, Rocephin, as well as Levaquin. Blood and sputum cultures are pending. Patient is being checked for TB and legionnaire. He is also being checked for HIV. Rpt cxr cesia (2) Suspected COVID-19 virus infection: Code(s): Z20.822 - Contact with and (suspected) exposure to COVID-19 Status: Acute Assessment and Plan: The patient is on droplet and contact isolation. (3) Type 1 diabetes mellitus with hyperglycemia: Code(s): E10.65 - Type 1 diabetes mellitus with hyperglycemia Status: Chronic Assessment and Plan: Accu-Cheks AC and HS. Sliding scale insulin. Continue Lantus. Check A1c (4) Essential hypertension: Code(s): I10 - Essential (primary) hypertension Status: Acute Assessment and Plan: Continue with home medications (5) Hyperlipidemia: Code(s): E78.5 - Hyperlipidemia, unspecified Status: Acute Assessment and Plan: Continue with home medications. (6) Failure to thrive: Status: Acute Assessment and Plan: Dietitian consultation would greatly be appreciated. The patient also has some dysphagia. The patient has had a G-tube in the past. We can attempt to place the patient on protein supplements PPI. (7) Acute kidney injury: Code(s): N17.9 - Acute kidney failure, unspecified Status: Acute Assessment and Plan: Continue with IV fluid into renal ultrasound. Recheck in the a.m. Subjective Date/time seen: 03/28/21 14:54 Interval history: 65-year-old diabetic male patient who has had some GI symptoms in the past and had a G-tube in the past. The patient stated that he has been nauseated on and off for the last month. Chest x-ray was read as patchy bibasilar infiltrates suspicious for pneumonia. Chest abdomen pelvis CT was read as the following. Scattered regions tree-in-bud airspace disease often indicating endobronchial spread of infection such as tuberculosis or FLORINA. Pts covid is negative. Awaiting sputum results. failure to thrive secondary to atypical pneumonia or TB Review of Systems Review of Systems: All systems reviewed & are unremarkable except as noted in HPI and below Exam Const: General: other (Thin frail cachexic ) Nutritional Appearance: overweight Orientation/consciousness: oriented to person HENMT: Head: normal to inspection Resp: Effort & Inspection: no respiratory distress Auscultation: no rhonchi Cardio: Rate: regular rate Rhythm: regular rhythm GI: Inspection: normal to inspection GI Palp: No abdominal tenderness, No Guarding due to palpation present (GI) and No Hepatomegaly present Auscultation: normal bowel sounds Neuro: General: oriented to person Objective Data Vital Signs Vital Signs: Vital Signs - 24 hr 03/27/21 16:00 03/27/21 20:00 03/27/21 23:40 Temperature 37.2 C 36.9 C 36.9 C Pulse Rate 64 63 62 Respiratory Rate 16 18 18 Blood Pressure 119/70 116/65 116/64 Pulse Oximetry 96 96 96 03/28/21 04:00 03/28/21 08:00 03/28/21 12:00 Temperature 36.7 C 36.7 C 36.8 C Pulse Rate 64 61 60 Respiratory Rate 18 18 18 Blood Pressure 132/75 123/77 130/60 Pulse Oximetry 98 98 97 Intake/Output Intake/Output: Intake & Output 03/25/21 03/26/21 03/27/21 03/28/21 23:59 23:59 23:59 23:59 Intake Total 2450 3800 3960 2660 Output Total 100 2560 1400 1400 Balance 2350 1240 2560 1260 Meds/Results Medications: Active Medications Generic Name Dose Route Start Last Admin Trade Name Ruben PRN Reason Stop Dose Admin Aspirin 81 mg 03/26/21 09:00 03/28/21 08:35 Aspirin 81 Mg Enteric Tablet PO 81 mg DAILY ANJUM Administration Dextrose 12.5 gm 03/25/21 18:04 Dextro
[2021-03-28 16:00] VITALS: BP 120/58; PULSE 58; RESP 16; TEMP 37; O2SAT 97
--- NOTE | 2021-03-28 16:30 | PCAUD ---
labs collected this shift, 3rd sputum and ua, awaiting analysis.
[2021-03-28] MEDS: INSULIN ASPART (*BKC) 100 UNITS/ML SUB-Q (16:50)
[2021-03-28 17:16] LABS: Glucose Point of Care 229 mg/dl (65-105)
[2021-03-28 20:00] VITALS: BP 110/60; PULSE 58; RESP 18; TEMP 36.7; O2SAT 97
[2021-03-28 20:43] LABS: Glucose Point of Care 192 mg/dl (65-105)
[2021-03-28] MEDS: PRAVASTATIN SODIUM 20 MG TABLET 80 MG PO (22:00)
[2021-03-29] VITALS (7 sets, daily range): BP systolic 118–135; BP diastolic 60–77; PULSE 60–82; RESP 12–20; TEMP 36.6–37.1; O2SAT 97–100
[2021-03-29] MEDS: SODIUM CHLORIDE 0.9% IV 1,000 ML 100 ML IV CONT ×3 (01:51→20:08)
[2021-03-29 05:14] LABS: Glucose Point of Care 33 mg/dl (65-105)
[2021-03-29] MEDS: GLUCOSE ORAL GEL 15 GM OF GLUCSE IN 37.5 GM TUBE PO ×2 (05:14→06:27)
[2021-03-29 05:15] LABS: Glucose Point of Care 38 mg/dl (65-105)
[2021-03-29] MEDS: DEXTROSE 50% 25 GM/50 ML SYRINGE IV PUSH (05:36)
[2021-03-29 06:28] LABS: Glucose Point of Care 41 mg/dl (65-105)
[2021-03-29 06:28] LABS: Glucose Point of Care 85 mg/dl (65-105)
[2021-03-29] MEDS: INSULIN GLARGINE (*BKC) 100 UNITS/ML 15 UNITS SUB-Q ×2 (08:43→17:14)
[2021-03-29] MEDS: PANTOPRAZOLE SODIUM IV 40 MG VIAL IV PUSH ×2 (08:47→20:05)
[2021-03-29] MEDS: ASPIRIN 81 MG ENTERIC TABLET PO (08:47)
[2021-03-29] MEDS: polyethylene glycoL 3350 17 GM POWD.PACK PO (08:47)
[2021-03-29 08:48] LABS: Glucose Point of Care 87 mg/dl (65-105)
[2021-03-29] MEDS: DOCUSATE SODIUM 100 MG CAPSULE PO ×2 (08:50→20:05)
[2021-03-29 12:08] LABS: Glucose Point of Care 128 mg/dl (65-105)
--- NOTE | 2021-03-29 12:57 | PM.IMPN ---
Progress Note: A&P Assessment and Plan (1) Pneumonia: Code(s): J18.9 - Pneumonia, unspecified organism Status: Acute Assessment and Plan: Awaiting 3 sputums, wcc much improved. Per Dr. Elias recommendation the patient be placed on all 3 antibiotics which includes azithromycin, Rocephin, as well as Levaquin. Blood and sputum cultures are pending. Patient is being checked for TB and legionnaire. He is also being checked for HIV. Rpt cxr cesia (2) Suspected COVID-19 virus infection: Code(s): Z20.822 - Contact with and (suspected) exposure to COVID-19 Status: Acute Assessment and Plan: The patient is on droplet and contact isolation. (3) Type 1 diabetes mellitus with hyperglycemia: Code(s): E10.65 - Type 1 diabetes mellitus with hyperglycemia Status: Chronic Assessment and Plan: Accu-Cheks AC and HS. Sliding scale insulin. Continue Lantus. Check A1c (4) Essential hypertension: Code(s): I10 - Essential (primary) hypertension Status: Acute Assessment and Plan: Continue with home medications (5) Hyperlipidemia: Code(s): E78.5 - Hyperlipidemia, unspecified Status: Acute Assessment and Plan: Continue with home medications. (6) Failure to thrive: Status: Acute Assessment and Plan: Dietitian consultation would greatly be appreciated. The patient also has some dysphagia. The patient has had a G-tube in the past. We can attempt to place the patient on protein supplements PPI. (7) Acute kidney injury: Code(s): N17.9 - Acute kidney failure, unspecified Status: Acute Assessment and Plan: Continue with IV fluid into renal ultrasound. Recheck in the a.m. Additional Plan 03/26/21 renal fxn improving still w hyponatremia cont IVFs BG above goal on LD ISS increase Basal insulin to 15U BID on azithro, levaquin, and rocephin COVID pending 03/27/21 BG at goal COVID negative ruling out for MAC/ TB cont current care [place] improving no GI sxs since admission, seen by GI -> outpt follow up reglan PRN Dr Elias following for possible MAC am labs ordered 03/29 upon arrival with complaint of cough and shortness of CT scan suspicious for tuberculosis, patient is negative pressure, and TB test is pending, COVID test is negative, pneumonia legionnaire pending patient remains clinically stable chest feeling much better compared to when he arrived, patient remains clinically stable in room air, will continue present management pending TB test and further recommendation to follow. Subjective Date/time seen: 03/29/21 12:57 Interval history: 65-year-old diabetic male patient who has had some GI symptoms in the past and had a G-tube in the past. The patient stated that he has been nauseated on and off for the last month. Chest x-ray was read as patchy bibasilar infiltrates suspicious for pneumonia. Chest abdomen pelvis CT was read as the following. Scattered regions tree-in-bud airspace disease often indicating endobronchial spread of infection such as tuberculosis or FLORINA. Pts covid is negative. Awaiting sputum results. failure to thrive secondary to atypical pneumonia or TB 03/29 upon arrival with complaint of cough and shortness of CT scan suspicious for tuberculosis, patient is negative pressure, and TB test is pending, COVID test is negative, pneumonia legionnaire pending patient remains clinically stable chest feeling much better compared to when he arrived, patient remains clinically stable in room air, will continue present management pending TB test and further recommendation to follow. Review of Systems Review of Systems: All systems reviewed & are unremarkable except as noted in HPI and below Exam Narrative: appears chronically ill and malnourished Patient is comfortable, NAD HEENT: eyes are clear and none icteric LUNGS: normal respiratory effort ABD: under stable Lower extremities: no edema
[2021-03-29 14:52] LABS: HIV 1 RNA PCR <1.30 Log cps/mL; HIV 1 RNA PCR <20 Copies/mL
[2021-03-29 17:07] LABS: Glucose Point of Care 171 mg/dl (65-105)
[2021-03-29] MEDS: PRAVASTATIN SODIUM 20 MG TABLET 80 MG PO (20:05)
[2021-03-29 21:36] LABS: Glucose Point of Care 177 mg/dl (65-105)
[2021-03-30] VITALS (7 sets, daily range): BP systolic 115–146; BP diastolic 64–75; PULSE 51–62; RESP 18–20; TEMP 35.8–37.2; O2SAT 96–100
[2021-03-30 09:29] LABS: Glucose Point of Care 202 mg/dl (65-105)
[2021-03-30 09:31] LABS: Basophils Absolute Auto 0.1 K/mm3 (0.0-0.1); Basophils Percent Auto 1.4 % (0.2-1.2); Eosinophils Absolute Auto 0.3 K/mm3 (0-0.3); Eosinophils Percent Auto 5.2 % (0-4.4); Hematocrit 36.5 % (42.0-52.0); Hemoglobin 11.6 g/dL (14.0-18.0); Immature Granulocyte Absolute 0.01 K/mm3 (0.00-0.031); Immature Granulocyte Percent A 0.2 % (0-0.5); Lymphocytes Absolute Auto 0.81 K/mm3 (0.9-3.2); Mean Corpuscular HGB Conc 31.8 g/dl (32-36); Mean Corpuscular Hemoglobin 31.1 pg (26-34); Mean Corpuscular Volume 97.9 fl (80-100); Mean Platelet Volume 9.5 fl (7.4-10.4); Monocytes Absolute Auto 0.5 K/mm3 (0.1-0.6); Monocytes Percent Auto 8.8 % (2.6-8.5); Neutrophils Absolute Auto 4.1 K/mm3 (1.3-6.7); Neutrophils Percent Auto 70.4 % (45.5-73.1); Platelet Count Result 169 k/mm3 (150-375); Red Blood Count 3.73 M/mm3 (4.6-6.20); Red Cell Distribution Width 13.5 % (11.5-14.5); White Blood Count 5.8 K/mm3 (4.5-10.0)
[2021-03-30] MEDS: INSULIN ASPART (*BKC) 100 UNITS/ML SUB-Q (09:42)
[2021-03-30] MEDS: PANTOPRAZOLE SODIUM IV 40 MG VIAL IV PUSH ×2 (09:44→21:34)
[2021-03-30] MEDS: INSULIN GLARGINE (*BKC) 100 UNITS/ML 15 UNITS SUB-Q ×2 (09:44→17:41)
[2021-03-30] MEDS: ASPIRIN 81 MG ENTERIC TABLET PO (09:45)
[2021-03-30] MEDS: DOCUSATE SODIUM 100 MG CAPSULE PO ×2 (09:46→21:34)
[2021-03-30 09:59] LABS: Alanine Aminotransferase 13 U/L (4-50); Albumin Level 2.8 g/dL (3.5-5.1); Alkaline Phosphatase 61 U/L (38-126); Anion Gap 8 mmol/L (8-16); Aspartate Amino Transferase 17 U/L (17-59); Bilirubin,Total < 0.1 mg/dL (0.2-1.3); Blood Urea Nitrogen 15 mg/dL (9-20); Calcium 7.9 mg/dL (8.4-10.2); Carbon Dioxide 26 mmol/L (22-30); Chloride 106 mmol/L (98-107); Estimated CRCL calculation 70 ml/min; Estimated Glomerular Filt Rate > 60; Glucose 216 mg/dL (65-110); Magnesium 1.9 mg/dL (1.6-2.3); Sodium 140 mmol/L (137-145)
[2021-03-30] MEDS: SODIUM CHLORIDE 0.9% IV 1,000 ML 100 ML IV CONT (11:45)
[2021-03-30 12:01] LABS: Glucose Point of Care 197 mg/dl (65-105)
--- NOTE | 2021-03-30 14:00 | PM.IMPN ---
Progress Note: A&P Assessment and Plan (1) Pneumonia: Code(s): J18.9 - Pneumonia, unspecified organism Status: Acute Assessment and Plan: Awaiting 3 sputums, wcc much improved. Per Dr. Elias recommendation the patient be placed on all 3 antibiotics which includes azithromycin, Rocephin, as well as Levaquin. Blood and sputum cultures are pending. Patient is being checked for TB and legionnaire. He is also being checked for HIV. Rpt cxr cesia (2) Suspected COVID-19 virus infection: Code(s): Z20.822 - Contact with and (suspected) exposure to COVID-19 Status: Acute Assessment and Plan: The patient is on droplet and contact isolation. (3) Type 1 diabetes mellitus with hyperglycemia: Code(s): E10.65 - Type 1 diabetes mellitus with hyperglycemia Status: Chronic Assessment and Plan: Accu-Cheks AC and HS. Sliding scale insulin. Continue Lantus. Check A1c (4) Essential hypertension: Code(s): I10 - Essential (primary) hypertension Status: Acute Assessment and Plan: Continue with home medications (5) Hyperlipidemia: Code(s): E78.5 - Hyperlipidemia, unspecified Status: Acute Assessment and Plan: Continue with home medications. (6) Failure to thrive: Status: Acute Assessment and Plan: Dietitian consultation would greatly be appreciated. The patient also has some dysphagia. The patient has had a G-tube in the past. We can attempt to place the patient on protein supplements PPI. (7) Acute kidney injury: Code(s): N17.9 - Acute kidney failure, unspecified Status: Acute Assessment and Plan: Continue with IV fluid into renal ultrasound. Recheck in the a.m. Additional Plan 03/26/21 renal fxn improving still w hyponatremia cont IVFs BG above goal on LD ISS increase Basal insulin to 15U BID on azithro, levaquin, and rocephin COVID pending 03/27/21 BG at goal COVID negative ruling out for MAC/ TB cont current care [place] improving no GI sxs since admission, seen by GI -> outpt follow up reglan PRN Dr Elias following for possible MAC am labs ordered 03/29 upon arrival with complaint of cough and shortness of CT scan suspicious for tuberculosis, patient is negative pressure, and TB test is pending, COVID test is negative, pneumonia legionnaire pending patient remains clinically stable chest feeling much better compared to when he arrived, patient remains clinically stable in room air, will continue present management pending TB test and further recommendation to follow. 03/30 patient is clinically stable, Denies any complaints of cough shortness of breath fever or chills, does a concern the patient may have a TB and being tested and results pending, will continue present management, will continue to monitor and further recommendation to follow. Subjective Date/time seen: 03/30/21 14:00 Interval history: 65-year-old diabetic male patient who has had some GI symptoms in the past and had a G-tube in the past. The patient stated that he has been nauseated on and off for the last month. Chest x-ray was read as patchy bibasilar infiltrates suspicious for pneumonia. Chest abdomen pelvis CT was read as the following. Scattered regions tree-in-bud airspace disease often indicating endobronchial spread of infection such as tuberculosis or FLORINA. Pts covid is negative. Awaiting sputum results. failure to thrive secondary to atypical pneumonia or TB 03/29 upon arrival with complaint of cough and shortness of CT scan suspicious for tuberculosis, patient is negative pressure, and TB test is pending, COVID test is negative, pneumonia legionnaire pending patient remains clinically stable chest feeling much better compared to when he arrived, patient remains clinically stable in room air, will continue present management pending TB test and further recommendation to follow. 03/30 patient is clinically stable, Denies any c
[2021-03-30 17:23] LABS: Glucose Point of Care 181 mg/dl (65-105)
[2021-03-30] MEDS: PRAVASTATIN SODIUM 20 MG TABLET 80 MG PO (21:34)
[2021-03-30 21:53] LABS: Glucose Point of Care 218 mg/dl (65-105)
[2021-03-31] VITALS (7 sets, daily range): BP systolic 114–141; BP diastolic 62–74; PULSE 58–67; RESP 16–18; TEMP 36.3–37.2; O2SAT 97–100
[2021-03-31] MEDS: SODIUM CHLORIDE 0.9% IV 1,000 ML 100 ML IV CONT ×3 (01:13→13:37)
[2021-03-31 06:44] LABS: Basophils Absolute Auto 0.1 K/mm3 (0.0-0.1); Eosinophils Absolute Auto 0.3 K/mm3 (0-0.3); Eosinophils Percent Auto 4.1 % (0-4.4); Hematocrit 32.8 % (42.0-52.0); Hemoglobin 10.7 g/dL (14.0-18.0); Immature Granulocyte Absolute 0.02 K/mm3 (0.00-0.031); Immature Granulocyte Percent A 0.3 % (0-0.5); Lymphocytes Absolute Auto 0.83 K/mm3 (0.9-3.2); Lymphocytes Percent Auto 12.3 % (18.3-44.2); Mean Corpuscular HGB Conc 32.6 g/dl (32-36); Mean Corpuscular Hemoglobin 30.7 pg (26-34); Mean Corpuscular Volume 94.3 fl (80-100); Mean Platelet Volume 9.7 fl (7.4-10.4); Monocytes Absolute Auto 0.6 K/mm3 (0.1-0.6); Monocytes Percent Auto 9.2 % (2.6-8.5); Neutrophils Absolute Auto 4.9 K/mm3 (1.3-6.7); Neutrophils Percent Auto 73.1 % (45.5-73.1); Platelet Count Result 176 k/mm3 (150-375); Red Blood Count 3.48 M/mm3 (4.6-6.20); Red Cell Distribution Width 13.7 % (11.5-14.5); White Blood Count 6.8 K/mm3 (4.5-10.0)
[2021-03-31 07:03] LABS: Alanine Aminotransferase 13 U/L (4-50); Albumin Level 2.7 g/dL (3.5-5.1); Alkaline Phosphatase 72 U/L (38-126); Anion Gap 5 mmol/L (8-16); Aspartate Amino Transferase 17 U/L (17-59); Bilirubin,Total < 0.1 mg/dL (0.2-1.3); Blood Urea Nitrogen 16 mg/dL (9-20); Calcium 7.8 mg/dL (8.4-10.2); Carbon Dioxide 27 mmol/L (22-30); Chloride 106 mmol/L (98-107); Estimated CRCL calculation 70 ml/min; Estimated Glomerular Filt Rate > 60; Glucose 149 mg/dL (65-110); Potassium 3.7 mmol/L (3.4-5.0); Sodium 138 mmol/L (137-145)
[2021-03-31 08:43] LABS: Glucose Point of Care 124 mg/dl (65-105)
[2021-03-31] MEDS: ASPIRIN 81 MG ENTERIC TABLET PO (09:00)
[2021-03-31] MEDS: PANTOPRAZOLE SODIUM IV 40 MG VIAL IV PUSH ×2 (09:01→21:34)
[2021-03-31] MEDS: INSULIN GLARGINE (*BKC) 100 UNITS/ML 15 UNITS SUB-Q ×2 (09:01→17:13)
[2021-03-31 09:51] LABS: Legionella pneumophila Ag Ur Not Detected (Not Detected)
[2021-03-31] MEDS: DOCUSATE SODIUM 100 MG CAPSULE PO ×2 (11:28→21:33)
[2021-03-31] MEDS: INSULIN ASPART (*BKC) 100 UNITS/ML SUB-Q ×2 (12:05→17:13)
--- NOTE | 2021-03-31 13:23 | CONS_ITS ---
DATE OF CONSULTATION: 03/26/2021 PRIMARY CARE PROVIDER: Randy Galeas DO. HISTORY OF PRESENT ILLNESS: A 65-year-old male with history of type 1 diabetes, hyperlipidemia, knee surgery, cataract extraction, history of PEG that has been removed, who presents with one month of intermittent nausea and vomiting. I am now asked to provide GI evaluation at the request of the hospitalist service. The patient is being ruled out for COVID, so the patient is not personally seen in order to preserve healthcare resources. The patient has hemoglobin A1c of 10.1 in August 2020. Chest x-ray done on admission shows suspect pneumonia. This is confirmed by CT scan. REVIEW OF SYSTEMS: Not obtained. No endocarditis risk factors. ALLERGIES: NO KNOWN DRUG ALLERGIES. MEDICATIONS: See list but includes baby aspirin. SOCIAL HISTORY: Nonsmoker, nondrinker. Does not use drugs. FAMILY HISTORY: Negative for GI malignancy. Colonoscopy done December 11, 2013 shows sigmoid colon with 2 cm and 1.5 cm polyps. Rectum had 5 mm and 2 cm polyps. PHYSICAL EXAM: Not performed. LABORATORY DATA: Labs on March 26, hemoglobin 12, hematocrit 34, white count of 14. Creatinine 1.6. LFTs, lipase, and TSH are normal. On March 25, hematocrit 41, white count of 21. Creatinine 2.2. T bilirubin 1.8, alkaline phosphatase 77, AST 20, ALT is 22. CT scan of the abdomen and pelvis shows diverticulosis and increased stool. ASSESSMENT AND PLAN: 1. Patient with nausea, vomiting, new onset of pneumonia with diabetes. Symptoms are likely multifactorial and related to gastric dysmotility. Treat primary process, and if necessary, consider Reglan to address gastric emptying. We will reassess when the patient's coronavirus disease status is determined. 2. Abnormal imaging digestive with diverticular disease and that it is observe. 3. Personal history of colon polyps in 2013. These were significant polyps and pathology report is unavailable. The patient will need colonoscopy once stable likely as outpatient. Thank you for allowing me to care for your patient. I will continue to follow. REZA GONGORA M.D. CC:? Randy Galeas D.O. STRAPPER STRAPPER D I MT: Natasha MOSELEY
--- NOTE | 2021-03-31 13:41 | PM.IMPN ---
Progress Note: A&P Assessment and Plan (1) Pneumonia: Code(s): J18.9 - Pneumonia, unspecified organism Status: Acute Assessment and Plan: Awaiting 3 sputums, wcc much improved. Per Dr. Elias recommendation the patient be placed on all 3 antibiotics which includes azithromycin, Rocephin, as well as Levaquin. Blood and sputum cultures are pending. Patient is being checked for TB and legionnaire. He is also being checked for HIV. Rpt cxr cesia (2) Suspected COVID-19 virus infection: Code(s): Z20.822 - Contact with and (suspected) exposure to COVID-19 Status: Acute Assessment and Plan: The patient is on droplet and contact isolation. (3) Type 1 diabetes mellitus with hyperglycemia: Code(s): E10.65 - Type 1 diabetes mellitus with hyperglycemia Status: Chronic Assessment and Plan: Accu-Cheks AC and HS. Sliding scale insulin. Continue Lantus. Check A1c (4) Essential hypertension: Code(s): I10 - Essential (primary) hypertension Status: Acute Assessment and Plan: Continue with home medications (5) Hyperlipidemia: Code(s): E78.5 - Hyperlipidemia, unspecified Status: Acute Assessment and Plan: Continue with home medications. (6) Failure to thrive: Status: Acute Assessment and Plan: Dietitian consultation would greatly be appreciated. The patient also has some dysphagia. The patient has had a G-tube in the past. We can attempt to place the patient on protein supplements PPI. (7) Acute kidney injury: Code(s): N17.9 - Acute kidney failure, unspecified Status: Acute Assessment and Plan: Continue with IV fluid into renal ultrasound. Recheck in the a.m. Additional Plan 03/26/21 renal fxn improving still w hyponatremia cont IVFs BG above goal on LD ISS increase Basal insulin to 15U BID on azithro, levaquin, and rocephin COVID pending 03/27/21 BG at goal COVID negative ruling out for MAC/ TB cont current care [place] improving no GI sxs since admission, seen by GI -> outpt follow up reglan PRN Dr Elias following for possible MAC am labs ordered 03/29 upon arrival with complaint of cough and shortness of CT scan suspicious for tuberculosis, patient is negative pressure, and TB test is pending, COVID test is negative, pneumonia legionnaire pending patient remains clinically stable chest feeling much better compared to when he arrived, patient remains clinically stable in room air, will continue present management pending TB test and further recommendation to follow. 03/30 patient is clinically stable, Denies any complaints of cough shortness of breath fever or chills, does a concern the patient may have a TB and being tested and results pending, will continue present management, will continue to monitor and further recommendation to follow. 03/31 patient remains clinically stable, working with physical therapy, no new complaint, I did call lab, TB test is pending at [employer], will continue to follow, will continue to monitor the patient and further recommendation to follow. Subjective Date/time seen: 03/31/21 13:41 Interval history: 65-year-old diabetic male patient who has had some GI symptoms in the past and had a G-tube in the past. The patient stated that he has been nauseated on and off for the last month. Chest x-ray was read as patchy bibasilar infiltrates suspicious for pneumonia. Chest abdomen pelvis CT was read as the following. Scattered regions tree-in-bud airspace disease often indicating endobronchial spread of infection such as tuberculosis or FLORINA. Pts covid is negative. Awaiting sputum results. failure to thrive secondary to atypical pneumonia or TB 03/29 upon arrival with complaint of cough and shortness of CT scan suspicious for tuberculosis, patient is negative pressure, and TB test is pending, COVID test is negative, pneumonia legionnaire pending patient remains clinically stab
[2021-03-31 16:07] LABS: Glucose Point of Care 222 mg/dl (65-105)
[2021-03-31] MEDS: PRAVASTATIN SODIUM 20 MG TABLET 80 MG PO (21:33)
[2021-03-31 22:17] LABS: Glucose Point of Care 93 mg/dl (65-105)
[2021-03-31 23:44] LABS: NIL 0.02 IU/mL; Quantiferon TB Plus, 1T NEGATIVE (NEGATIVE); TB1-NIL <0.00 IU/mL; TB2-NIL <0.00 IU/mL
[2021-04-01] VITALS: BP 138/72; PULSE 61; RESP 18; TEMP 36.7; O2SAT 99
[2021-04-01] MEDS: SODIUM CHLORIDE 0.9% IV 1,000 ML 100 ML IV CONT (00:12)
[2021-04-01 04:00] VITALS: BP 135/67; PULSE 69; RESP 18; TEMP 36.1; O2SAT 98
[2021-04-01 06:50] LABS: Basophils Absolute Auto 0.1 K/mm3 (0.0-0.1); Basophils Percent Auto 0.7 % (0.2-1.2); Eosinophils Absolute Auto 0.2 K/mm3 (0-0.3); Eosinophils Percent Auto 2.1 % (0-4.4); Hemoglobin 11.5 g/dL (14.0-18.0); Immature Granulocyte Absolute 0.03 K/mm3 (0.00-0.031); Immature Granulocyte Percent A 0.3 % (0-0.5); Lymphocytes Absolute Auto 1.21 K/mm3 (0.9-3.2); Lymphocytes Percent Auto 13.5 % (18.3-44.2); Mean Corpuscular HGB Conc 31.9 g/dl (32-36); Mean Corpuscular Hemoglobin 30.6 pg (26-34); Mean Corpuscular Volume 95.7 fl (80-100); Mean Platelet Volume 9.5 fl (7.4-10.4); Monocytes Absolute Auto 0.9 K/mm3 (0.1-0.6); Monocytes Percent Auto 9.6 % (2.6-8.5); Neutrophils Absolute Auto 6.6 K/mm3 (1.3-6.7); Neutrophils Percent Auto 73.8 % (45.5-73.1); Platelet Count Result 208 k/mm3 (150-375); Red Blood Count 3.76 M/mm3 (4.6-6.20); Red Cell Distribution Width 13.8 % (11.5-14.5)
[2021-04-01 07:32] LABS: Alanine Aminotransferase 13 U/L (4-50); Albumin Level 3.1 g/dL (3.5-5.1); Alkaline Phosphatase 66 U/L (38-126); Anion Gap 5 mmol/L (8-16); Aspartate Amino Transferase 27 U/L (17-59); Bilirubin,Total 0.3 mg/dL (0.2-1.3); Blood Urea Nitrogen 12 mg/dL (9-20); Calcium 8.6 mg/dL (8.4-10.2); Carbon Dioxide 28 mmol/L (22-30); Chloride 109 mmol/L (98-107); Estimated CRCL calculation 70 ml/min; Estimated Glomerular Filt Rate > 60; Glucose 39 mg/dL (65-110); Potassium 3.9 mmol/L (3.4-5.0); Sodium 142 mmol/L (137-145)
[2021-04-01] MEDS: GLUCOSE ORAL GEL 15 GM OF GLUCSE IN 37.5 GM TUBE PO (08:11)
[2021-04-01 08:13] LABS: Glucose Point of Care 31 mg/dl (65-105)
[2021-04-01] MEDS: ASPIRIN 81 MG ENTERIC TABLET PO (08:15)
[2021-04-01] MEDS: PANTOPRAZOLE SODIUM IV 40 MG VIAL IV PUSH (08:15)
[2021-04-01] MEDS: DOCUSATE SODIUM 100 MG CAPSULE PO (08:18)
[2021-04-01 08:31] LABS: Glucose Point of Care 34 mg/dl (65-105)
--- NOTE | 2021-04-01 08:34 | PC.NURSE ---
juice given at this time due to hypoglycemia, as well as breakfast tray. will recheck bs.
[2021-04-01 08:59] LABS: Glucose Point of Care 50 mg/dl (65-105)
[2021-04-01 10:03] LABS: Glucose Point of Care 113 mg/dl (65-105)
--- NOTE | 2021-04-01 10:03 | PC.NURSE ---
0920 at room with pt, made aware of hypoglycemia and that all insulin held this am and pt given food and juice as well as gel. rechecked pt bs at 1000 and is 113. pt states feeling fine and has no concerns at this time.
[2021-04-01 11:11] LABS: Glucose Point of Care 136 mg/dl (65-105)
--- NOTE | 2021-04-01 11:17 | PCNFU ---
Nutrition Follow-Up Complete: Inadequate Oral Intake as related to pneumonia/poor po intake as evidenced by 10 ibs weight loss reported. Goal: Adequate Intake of at least 75% of meals/supplements Patient has met current goal. No new goal. Pt current nutrition is DBCC with Glucerna shakes BID. Last recorded weight is 62.7 kg, no new weight to report. Bowel Motility: No BM reported Labs Reviewed:Glu 39,Alb 3.1,Hct 36.0,Hgb 11.5 Meds Noted:Rocephin,Colace,Pravastatin,Protonix,NS, Levaquin Additional Notes: Nutrition follow up. Patient is tolerating 100% of a DBCC diet. Diet supplements of Glucerna shakes BID are providing an additional 220 kcals and 10 gms protein. Low blood sugar reported hypoglycemia protocol in place. Agree with diet orders. Monitoring: Will monitor every 5 days.
--- NOTE | 2021-04-01 12:56 | PM.DS ---
DS: Admitting Diagnosis Discharge Date 04/01/2021 Admitting Diagnosis Chief Complaint: Nausea and vomiting DS: Discharge Diagnosis Discharge Diagnosis (1) Pneumonia: Qualifiers: Pneumonia type: due to unspecified organism Laterality: bilateral Lung location: lower lobe of lung Qualified Code(s): J18.9 - Pneumonia, unspecified organism Code(s): J18.9 - Pneumonia, unspecified organism Status: Acute Assessment and Plan: Awaiting 3 sputums, wcc much improved. Per Dr. Elias recommendation the patient be placed on all 3 antibiotics which includes azithromycin, Rocephin, as well as Levaquin. Blood and sputum cultures are pending. Patient is being checked for TB and legionnaire. He is also being checked for HIV. Rpt cxr cesia (2) Suspected COVID-19 virus infection: Code(s): Z20.822 - Contact with and (suspected) exposure to COVID-19 Status: Acute Assessment and Plan: The patient is on droplet and contact isolation. (3) Type 1 diabetes mellitus with hyperglycemia: Code(s): E10.65 - Type 1 diabetes mellitus with hyperglycemia Status: Chronic Assessment and Plan: Accu-Cheks AC and HS. Sliding scale insulin. Continue Lantus. Check A1c (4) Essential hypertension: Code(s): I10 - Essential (primary) hypertension Status: Acute Assessment and Plan: Continue with home medications (5) Hyperlipidemia: Code(s): E78.5 - Hyperlipidemia, unspecified Status: Acute Assessment and Plan: Continue with home medications. (6) Failure to thrive: Status: Acute Assessment and Plan: Dietitian consultation would greatly be appreciated. The patient also has some dysphagia. The patient has had a G-tube in the past. We can attempt to place the patient on protein supplements PPI. (7) Acute kidney injury: Code(s): N17.9 - Acute kidney failure, unspecified Status: Acute Assessment and Plan: Continue with IV fluid into renal ultrasound. Recheck in the a.m. DS: Summary Hospital Course Reason for hospitalization: this is a 65-year-old diabetic male patient who has had some GI symptoms in the past and had a G-tube in the past. The patient stated that he has been nauseated on and off for the last month. The patient stated that he is not able to keep any food down. He has not seen a GI doctor in quite some time. The patient is only 65.9 kg. It looks like the patient saw his provider on 01/12/2021 for wellness check. Last A1c was 10.1 on 09/04/2020. The patient is answering questions but he is mentally delayed. His white count is noted to be 20.7. H&H is 13.9 and 41.3. Creatinine 2.2. Blood sugar 336. Lactic acid 2.2. Sodium is 127. The patient was started on IV fluids and azithromycin in the emergency room. Chest x-ray was read as patchy bibasilar infiltrates suspicious for pneumonia. Chest abdomen pelvis CT was read as the following. Scattered regions tree-in-bud airspace disease often indicating endobronchial spread of infection such as tuberculosis or FLORINA. Some other possibilities above. 2. Emphysema and hyperinflation. 3. Moderate colonic stool and sigmoid diverticulosis. Pulmonary has been consulted. Dr. Elias recommended azithromycin, Rocephin and Levaquin. He also recommended acid fast sputum specimen. The patient is being admitted for observation on the date of service 03/25/2021. Chief Complaint: Nausea and vomiting Hospital Course: 03/26/21 renal fxn improving still w hyponatremia cont IVFs BG above goal on LD ISS increase Basal insulin to 15U BID on azithro, levaquin, and rocephin COVID pending 03/27/21 BG at goal COVID negative ruling out for MAC/ TB cont current care [place] improving no GI sxs since admission, seen by GI -> outpt follow up reglan PRN Dr Elias following for possible MAC am labs ordered 03/29 upon arrival with complaint of cough and shortness of CT scan suspicious for tubercul
--- NOTE | 2021-04-01 14:02 | PCPTNOTE ---
The patient treatment was not able to be completed due to patient being discharged. Patient states he is waiting for his family to pick him up. Patient voiced no concerns or therapy needs.
== END 2021-04-01 14:05 | disposition home health service (06) | DRG 194 ==
LOC: ANHED 10:10 → ANH3MEDSUR 18:11
PROVIDERS: Nurse Practitioner; Physician Assistant; Admitting Provider Hospitalist; Emergency Provider Emergency Medicine; PCP Internal Medicine; Visit Provider Family Medicine
DX: J18.9 Pneumonia, unspecified organism (principal); N17.9 Acute kidney failure, unspecified; E87.1 Hypo-osmolality and hyponatremia; Z68.1 Body mass index [BMI] 19.9 or less, adult; R62.7 Adult failure to thrive; Z20.822 Contact with and (suspected) exposure to COVID-19; E10.65 Type 1 diabetes mellitus with hyperglycemia; R13.10 Dysphagia, unspecified; R11.2 Nausea with vomiting, unspecified; K57.90 Diverticulosis of intestine, part unspecified, without perforation or abscess without bleeding; R63.4 Abnormal weight loss; I10 Essential (primary) hypertension; E78.5 Hyperlipidemia, unspecified; Z79.82 Long term (current) use of aspirin; Z79.4 Long term (current) use of insulin; Z79.899 Other long term (current) drug therapy; Z86.010 Personal history of colon polyps
CPT/HCPCS: 36415; 51701; 71046; 71250; 74176; 76775; 80048; 80053; 81001; 82948; 83036; 83605; 83615; 83690; 83735; 84145; 84300; 84443; 85025; 86480; 86703; 87015; 87040; 87070; 87116; 87205; 87206; 87449; 87536; 89190; 93005; 96361; 96365; 96366; 96367; 96375; 96376; 97110; 97116; 97161; 97165; 97535; 99285; A9270; C9113; C9803; G0378; G0432; J0456; J0696; J1815; J1956; J7030; J7060; U0003; U0005

== ENCOUNTER 2021-04-04 13:31 | Inpatient (IN) | payer MEDICARE, SELFPAY ==
--- NOTE | ~2021-04-04 | XR_ITS ---
XR chest 1V portable DATE: 04/07/2021 05:28 INDICATION: Persistent infiltrates. Fever. TECHNIQUE: Portable AP chest on 04/07/2021 at 0514 hours COMPARISON: 04/04/2021 portable AP chest FINDINGS: Normal heart size. Is aortic arch calcification. There is old pulmonary granulomatous disease. There is patchy infiltrates involving particularly the right mid and bilateral lower lung zones, mild ly increased since 04/04/2021. No pleural effusion. No pneumothorax. Diffuse osteopenia. IMPRESSION: Mildly increased bilateral pulmonary infiltrates since 04/04/2021 Reviewed, dictated and finalized at location A.
--- NOTE | ~2021-04-04 | CT_ITS ---
EXAMINATION:CT chest high resolution wo mo DATE: 04/05/2021 07:51 INDICATION: Persistent infiltrates. Pneumonia. Fever. TECHNIQUE: Computed tomography (CT) of the chest was performed without intravenous contrast. Automate d exposure control and iterative reconstruction technique were employed. The dose-length product (DLP ) was 158.80 mGy-cm. COMPARISON: Chest single view 04/04/2021, chest CT 03/25/2021 FINDINGS: There is mild scarring at the lung apices. There are airspace and groundglass opacities and centrilobular nodules in left lower lobe. There are patchy airspace and groundglass opacities, centr ilobular nodules, and tree-in-bud opacities involving right upper, middle, and lower lobes with spari ng of the right lung apex. These findings are consistent with pneumonia. There is mild atelectasis in lingula. Calcified right lung nodules and calcified right hilar and mediastinal lymph nodes are cons istent with old granulomatous disease. There are small left and trace right pleural effusions. The he art size is normal. There are coronary artery calcifications. No pericardial effusion. Calcifications in the liver and spleen are consistent with old granulomatous disease. There is mild thoracic spondy losis. IMPRESSION: 1. Pneumonia involving right lung and left lower lobe, worsened from 03/25/2021. 2. Trace right and small left pleural effusions, new from 03/25/2021. Reviewed, dictated and finalized at location A.
--- NOTE | ~2021-04-04 | XR_ITS ---
EXAMINATION: XR chest 1V portable DATE: 04/04/2021 17:12 INDICATION: Fever. TECHNIQUE: A single frontal view of the chest was obtained. COMPARISON: Chest 2 views 03/25/2021, chest CT 03/25/2021 FINDINGS: There are patchy airspace and interstitial opacities in the mid and lower lung zones. No pl eural effusion or pneumothorax. There is mild scarring at the lung apices. The heart size is normal. Calcified right hilar lymph nodes are consistent with old granulomatous disease. IMPRESSION: 1. Worsened airspace and interstitial opacities in the mid and lower lung zones, consistent with pneu monia. Reviewed, dictated and finalized at location A. IMPRESSION: 1. Worsened airspace and interstitial opacities in the mid and lower lung zones , consistent with pneumonia.
--- NOTE | ~2021-04-04 | XR_ITS ---
EXAMINATION: XR barium swallow modified DATE: 04/07/2021 09:34 INDICATION: Dysphagia. TECHNIQUE: The patient was given barium-containing material of multiple consistencies to swallow by t carmelo speech pathologist while I performed fluoroscopy. Dose-area product was 2.4 Gy-cm2. 4.3 minutes fluoroscopy time FINDINGS: Oral Stage: Within functional limits Pharyngeal Phase: Reduced laryngeal elevation Reduced laryngeal abduction Reduced tongue base retraction There is vallecular and piriform sinus residue with fluids and solids. Trace laryngeal penetration and trace silent aspiration Cervical/Esophageal Stage: Within functional limits IMPRESSION: Modified esophagram findings as above. Please refer to the speech therapy report for [facility]. Reviewed, dictated and finalized at Location A. Reviewed, dictated and finalized at location A. IMPRESSION: Modified esophagram findings as above. Please refer to the speech t herapy report for specific recommendations.
--- NOTE | ~2021-04-04 | XR_ITS ---
EXAMINATION: XR chest 1V portable EXAM DATE: 04/11/2021 05:40 INDICATION: Pneumonia. TECHNIQUE: Portable AP frontal chest x-ray was obtained. Comparison is made to prior examination from 04/07/2021. FINDINGS: There is moderate amount of right greater than left pneumonia and more linear atelectasis. There is no pneumothorax suspected. There are no pleural effusions. Cardiomediastinal silhouette is normal. There are bony degenerative changes. IMPRESSION: Right greater than left pneumonia and atelectasis unchanged. Reviewed, dictated and finalized at location A.
[2021-04-04 13:44] VITALS: BP 94/77; PULSE 68; RESP 17; TEMP 37.6; O2SAT 95
[2021-04-04 13:50] VITALS: BP 136/67
[2021-04-04 14:10] LABS: Basophils Absolute Auto 0.1 K/mm3 (0.0-0.1); Basophils Percent Auto 0.3 % (0.2-1.2); Eosinophils Absolute Auto 0.1 K/mm3 (0-0.3); Eosinophils Percent Auto 0.7 % (0-4.4); Hematocrit 33.9 % (42.0-52.0); Hemoglobin 11.3 g/dL (14.0-18.0); Immature Granulocyte Absolute 0.08 K/mm3 (0.00-0.031); Immature Granulocyte Percent A 0.5 % (0-0.5); Lymphocytes Absolute Auto 0.68 K/mm3 (0.9-3.2); Lymphocytes Percent Auto 4.4 % (18.3-44.2); Mean Corpuscular HGB Conc 33.3 g/dl (32-36); Mean Corpuscular Hemoglobin 31.4 pg (26-34); Mean Corpuscular Volume 94.2 fl (80-100); Mean Platelet Volume 9.3 fl (7.4-10.4); Monocytes Absolute Auto 0.8 K/mm3 (0.1-0.6); Monocytes Percent Auto 5.3 % (2.6-8.5); Neutrophils Absolute Auto 13.6 K/mm3 (1.3-6.7); Neutrophils Percent Auto 88.8 % (45.5-73.1); Platelet Count Result 190 k/mm3 (150-375); Red Cell Distribution Width 13.7 % (11.5-14.5); White Blood Count 15.3 K/mm3 (4.5-10.0)
[2021-04-04 14:15] LABS: Alanine Aminotransferase 12 U/L (4-50); Albumin Level 3.6 g/dL (3.5-5.1); Alkaline Phosphatase 62 U/L (38-126); Anion Gap 5 mmol/L (8-16); Aspartate Amino Transferase 20 U/L (17-59); Bilirubin,Total 0.5 mg/dL (0.2-1.3); Blood Urea Nitrogen 28 mg/dL (9-20); Calcium 8.5 mg/dL (8.4-10.2); Carbon Dioxide 34 mmol/L (22-30); Chloride 98 mmol/L (98-107); Estimated CRCL calculation 62 ml/min; Estimated Glomerular Filt Rate > 60; Glucose 103 mg/dL (65-110); Lipase 30 U/L (23-300); Potassium 3.9 mmol/L (3.4-5.0); Sodium 137 mmol/L (137-145)
[2021-04-04 14:20] LABS: Add Urine Microscopic? YES; Appearance Urine Clear (Clear); Bacteria Urine Trace /hpf; Bilirubin Urine Negative (Negative); Blood Urine Negative (Negative); Color Urine Yellow (Yellow); Glucose Urine UA Negative (Negative); Ketones Urine Trace mg/dL (Negative); Leukocyte Esterase Ur Negative LEU/UL (Negative); Mucus Urine Rare /lpf; Nitrate Urine Negative (Negative); Protein Urine 3+ mg/dL (Negative); Specific Grav Ur 1.028 (1.001-1.035); Urobilinogen Urine Negative mg/dL (<2.0); WBC Urine 0-3 /hpf
[2021-04-04 14:23] LABS: Ovalocytes 1+ (NORMAL); Platelet Estimate Adequate (Adequate)
[2021-04-04 15:58] VITALS: BP 140/78; PULSE 66; RESP 18; TEMP 37.3; O2SAT 96
--- NOTE | 2021-04-04 17:21 | ED.FEVER ---
HPI - Fever General Chief Complaint: Nausea/Vomiting/Diarrhea Stated Complaint: sent by home health for fever Time Seen by Provider: 04/04/21 16:54 Source: patient and RN notes reviewed Mode of arrival: ambulatory Limitations: physical limitation History of Present Illness HPI Narrative: 65-year-old male recently discharged after being treated for pneumonia with ceftriaxone azithromycin and Levaquin returns because his home health doctor noted he had a fever of 104.0 at home. Patient states he has slight cough but is also complaining of nausea and vomiting. Last ate at 12 PM and held that down. Patient was slightly febrile here at 99.0. Patient cachectic, speaking full sentences without difficulty, alert and attempting to answer all questions. No hemoptysis, states occasional cough, no leg swelling, no chest pain. Patient did test negative for Covid on last admission was discharged on April 01 and discharged at home on Levaquin. MD elicited complaint: fever and malaise Related Data Home Medications Medication Instructions Recorded Confirmed aspirin 81 mg tablet,delayed 81 mg PO DAILY 06/19/19 03/25/21 release Dexcom G6 Sensor 03/25/21 03/25/21 Lantus Solostar U-100 Insulin 16 unit SUBCUT HS 03/25/21 03/25/21 insulin aspart U-100 [Novolog 6 unit SUBCUT TIDWMEAL 03/25/21 03/25/21 Flexpen U-100 Insulin] insulin lispro 3 unit SUBCUT DAILY 03/25/21 03/25/21 lisinopril 2.5 mg PO DAILY 03/25/21 03/25/21 pravastatin 80 mg PO HS 03/25/21 03/25/21 Allergies Allergy/AdvReac Type Severity Reaction Status Date / Time No Known Allergies Allergy Verified 03/25/21 09:33 Review of Systems Review of Systems: CONSTITUTIONAL: positive for fever, positive for weight loss, no confusion EYES: no vision changes, no eye pain ENT: no rhinorrhea, no sore throat, no difficulty swallowing CARDIOVASCULAR: no chest pain, no leg edema, no palpitations RESPIRATORY: positive for cough, no shortness of breath, no hemoptysis GASTROINTESTINAL: positive for lower abdominal pain, no nausea, positive for vomiting one day ago, no diarrhea GENITOURINARY: no flank pain, no dysuria, no hematuria SKIN: no rash, no jaundice MUSCULOSKELETAL: no back pain, no trauma. NEUROLOGIC: No headache, no dizziness, no focal weakness PSYCHIATRIC: No hallucinations, no suicidal ideation [facility] Past Medical History Medical History Dysphagia Encounter for feeding tube placement History of gastrostomy tube placement Which has been removed Hyperlipidemia Type 1 diabetes mellitus with hyperglycemia Surgical History Surgical History H/O knee surgery Broken knee 12/2019 left knee History of cataract extraction Family History Family History Sibling Diabetes mellitus Family history of lung cancer Father Family history of cardiovascular disease Heart disease Mother Diabetes mellitus Hypertension Family history of thyroid problem Social History Social History Social History: The patient lives with his brother and sister. The patient is a lifelong nonsmoker. He does not use any alcohol marijuana or illicit drugs. 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 The patient stated that his brother and sister would be the durable power assistant district attorney for healthcare. The patient is a full code. Smoking status: Never smoker Second hand tobacco smoke exposure: Yes Alcohol intake: never Substance use: never Substance use type: does not use Spiritual care concerns: No Exam Narrative: General: alert, answering all questions appropriately, thin Head: normocephalic, atraumatic Eyes: EOMI bilaterally, anicteric, no injection ENT: dry mucous membranes, oropharynx patent, no rhinorrhea Neck: supple, trachea midline, no JVD Chest: eq
[2021-04-04] MEDS: SODIUM CHLORIDE 0.9% IV 1,000 ML 999 ML IV CONT (17:22)
[2021-04-04] MEDS: ONDANSETRON INJ 4 MG/2 ML VIAL IV PUSH (17:22)
[2021-04-04 20:28] VITALS: BP 120/85; PULSE 81; RESP 18; O2SAT 94
[2021-04-04 21:07] VITALS: BP 119/66; PULSE 64; RESP 16; TEMP 36.6; O2SAT 97
--- NOTE | 2021-04-04 21:07 | ADMGEN ---
This patient, Payam Mars, was admitted to Medical Room 261-01. Patient/family oriented to hospital policies and general routines including ID bracelet, bed and alarms, visiting hours, pain management, procedures, bathroom and other care routines, personal items, smoking policy, room service/diet, and visiting hours. Information on how to activate the Rapid Response Team has been discussed. Patient/Family are encouraged to report perceived risks to care and to ask questions if they do not understand what they are told or what they should do.
[2021-04-04 21:09] VITALS: BMI 21.0
--- NOTE | 2021-04-04 22:27 | PM.IMHP ---
H&P: HPI History of Present Illness Date/Time: 04/04/21 22:27 Chief Complaint: Shortness of breath Narrative: This is a 65-year-old male with past medical history significant for type 2 diabetes mellitus, hypertension. Patient just recently discharged from [facility] worked up for lung infiltrates however patient comes back now complaining of shortness of breath generalized weakness cough that is dry and at times productive of clear sputum patient is not the greatest historian and can not really give much details his main complaint is generalized weakness and shortness of breath however can not tell if he has had fevers or night sweats he does admit to weight loss but states that his appetite is good. Preliminary workup was significant for worsened airspace and interstitial opacities in the mid and lower lung zones, consistent with pneumonia. Patient has been admitted for further management evaluation and treatment. Review of Systems Review of Systems: Shortness of breath and weakness Constitutional: Constitutional: Denies chills, Denies fever(s) and Reports weakness Eyes: Eyes: Denies change in vision ENT: Denies dysphagia, Denies dizziness and Denies odynophagia Cardiovascular: Cardiovascular: Denies lightheadedness, Denies radiating jaw, neck or arm pain, Denies palpitations, Denies orthopnea and Denies paroxysmal nocturnal dyspnea Respiratory: Respiratory: Reports cough and Reports dyspnea Gastrointestinal: Gastrointestinal: Denies abdominal pain, Denies nausea and Denies vomiting Genitourinary: Genitourinary: Reports no additional male genitourinary complaints Musculoskeletal: Musculoskeletal: Reports muscle weakness Integumentary/Breasts: Skin/Breast: Reports system reviewed and no additional complaints, except as docu Neurologic: Reports system reviewed and no additional complaints, except as documented Psychiatric: Psychiatric: Reports no additional psychiatric complaints Endocrine: Endocrine: Reports no additional endocrine complaints Hematologic/Lymphatic: Hematologic/Lymphatic: Reports no additional hematologic/lymphatic complaints Allergic/Immunologic: Allergic/Immunologic: Reports no additional allergic/immunologic complaints [facility] Past Medical History Medical History Dysphagia Encounter for feeding tube placement History of gastrostomy tube placement Which has been removed Hyperlipidemia Type 1 diabetes mellitus with hyperglycemia Surgical History Surgical History H/O knee surgery Broken knee 12/2019 left knee History of cataract extraction Family History Family History Sibling Diabetes mellitus Family history of lung cancer Father Family history of cardiovascular disease Heart disease Mother Diabetes mellitus Hypertension Family history of thyroid problem Social History Social History Social History: The patient lives with his brother and sister. The patient is a lifelong nonsmoker. He does not use any alcohol marijuana or illicit drugs. 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 The patient stated that his brother and sister would be the durable power commonwealth attorney for healthcare. The patient is a full code. Smoking status: Never smoker Second hand tobacco smoke exposure: Yes Alcohol intake: never Substance use: never Substance use type: does not use Spiritual care concerns: No Meds Home Medications and Allergies Home Medications Medication Instructions Recorded Confirmed Type aspirin 81 mg tablet,delayed 81 mg PO DAILY 06/19/19 04/04/21 History release blood sugar diagnostic #100 each 08/14/19 04/04/21 Rx lancets 26 gauge #100 each 03/01/20 04/04/21 Rx blood-glucose meter,continuous #1 each 04/05/20 04/04/21 Rx blood-g
[2021-04-05 06:00] VITALS: BP 123/65; PULSE 68; RESP 16; TEMP 36.5; O2SAT 95
[2021-04-05 06:49] LABS: Glucose Point of Care 304 mg/dl (65-105)
[2021-04-05 08:05] LABS: Glucose Point of Care 298 mg/dl (65-105)
[2021-04-05 11:39] LABS: Glucose Point of Care 318 mg/dl (65-105)
--- NOTE | 2021-04-05 12:00 | P.PNIM_ITS ---
Progress Note: A&P Assessment and Plan (1) Atypical pneumonia: Code(s): J18.9 - Pneumonia, unspecified organism Status: Acute Assessment and Plan: * Patient just discharged on 04/01/2021 for pneumonia * four sputum cultures were collected last admission only 1 grew yeast * blood cultures are pending * will order repeat sputum culture * id has been consulted * pulmonary has been consulted * high-resolution CT of the chest showed pneumonia involving the right lung and left lower lobe worse since 03/25/2021, trace right and small left pleural effusion new since 03/25/2021 * chest x-ray showed worsened airspace and interstitial opacities in the mid and lower lung zones consistent with pneumonia * IV cefepime, azithromycin, vancomycin has been ordered * Pulmonary called and stated that he thinks it could be aspiration PNA or COVID PNA * Covid testing ordered * Speech on board for swallow study * GI on board (2) Weight loss: Code(s): R63.4 - Abnormal weight loss Status: Acute Assessment and Plan: * could be from chronic disease * could be from patient not being able to hold food down * previous visits showed GI was consulted and all indicate patient in need of a colonoscopy an EGD * Dr. Pimentel consulted thank you for your recommendations * dietitian consult * speech therapy consult to evaluate swallowing function * patient does have a history of a G-tube (3) Type 1 diabetes mellitus with hyperglycemia: Code(s): E10.65 - Type 1 diabetes mellitus with hyperglycemia Status: Chronic Assessment and Plan: * glucose this morning on labs was 103, POC glucose was in the 300s * continue home insulins * a.c. and HS Accu-Cheks * hypoglycemia protocol * adjust medications as needed * trend glucose * A1c from 03/26/2021 was 7.5 (4) Essential hypertension: Code(s): I10 - Essential (primary) hypertension Status: Acute Assessment and Plan: * blood pressure 123/65 * continue lisinopril 2.5 mg p.o. daily * trend blood pressures * adjust medications as needed (5) Nausea and vomiting: Code(s): R11.2 - Nausea with vomiting, unspecified Status: Acute Assessment and Plan: * patient reports intermittent / chronic nausea vomiting especially with eating * started patient on Protonix p.o. 40 mg b.i.d. * speech therapy to evaluate to ensure patient swallowing correctly * GI consulted * CT of the chest abdomen and pelvis showed moderate colonic stool and sigmoid diverticulosis (6) Hyperlipidemia: Code(s): E78.5 - Hyperlipidemia, unspecified Status: Acute Assessment and Plan: * continue home pravastatin 80 mg p.o. at bedtime Time Spent With Patient Time with patient: Greater than 35 minutes Subjective Date/time seen: 04/05/21 09:00 Interval history: Patient is a 65-year-old male who is here for pneumonia. Today patient states that he feeling little better however he did state that he was having some nausea vomiting yesterday. Patient also states that he has been weak and having sweats especially at night with fevers. He denies having a cough, chest pain, shortness of breath, chills, decreased appetite. However he is complaining seeing that he is having a hard time keeping food down. However he is little inconsistent with saying that he will vomit when he
--- NOTE | 2021-04-05 12:00 | PM.IMPN ---
Progress Note: A&P Assessment and Plan (1) Atypical pneumonia: Code(s): J18.9 - Pneumonia, unspecified organism Status: Acute Assessment and Plan: Patient just discharged on 04/01/2021 for pneumonia four sputum cultures were collected last admission only 1 grew yeast blood cultures are pending will order repeat sputum culture id has been consulted pulmonary has been consulted high-resolution CT of the chest showed pneumonia involving the right lung and left lower lobe worse since 03/25/2021, trace right and small left pleural effusion new since 03/25/2021 chest x-ray showed worsened airspace and interstitial opacities in the mid and lower lung zones consistent with pneumonia IV cefepime, azithromycin, vancomycin has been ordered Pulmonary called and stated that he thinks it could be aspiration PNA or COVID PNA Covid testing ordered Speech on board for swallow study GI on board (2) Weight loss: Code(s): R63.4 - Abnormal weight loss Status: Acute Assessment and Plan: could be from chronic disease could be from patient not being able to hold food down previous visits showed GI was consulted and all indicate patient in need of a colonoscopy an EGD Dr. Pimentel consulted thank you for your recommendations dietitian consult speech therapy consult to evaluate swallowing function patient does have a history of a G-tube (3) Type 1 diabetes mellitus with hyperglycemia: Code(s): E10.65 - Type 1 diabetes mellitus with hyperglycemia Status: Chronic Assessment and Plan: glucose this morning on labs was 103, POC glucose was in the 300s continue home insulins a.c. and HS Accu-Cheks hypoglycemia protocol adjust medications as needed trend glucose A1c from 03/26/2021 was 7.5 (4) Essential hypertension: Code(s): I10 - Essential (primary) hypertension Status: Acute Assessment and Plan: blood pressure 123/65 continue lisinopril 2.5 mg p.o. daily trend blood pressures adjust medications as needed (5) Nausea and vomiting: Code(s): R11.2 - Nausea with vomiting, unspecified Status: Acute Assessment and Plan: patient reports intermittent / chronic nausea vomiting especially with eating started patient on Protonix p.o. 40 mg b.i.d. speech therapy to evaluate to ensure patient swallowing correctly GI consulted CT of the chest abdomen and pelvis showed moderate colonic stool and sigmoid diverticulosis (6) Hyperlipidemia: Code(s): E78.5 - Hyperlipidemia, unspecified Status: Acute Assessment and Plan: continue home pravastatin 80 mg p.o. at bedtime Time Spent With Patient Time with patient: Greater than 35 minutes Subjective Date/time seen: 04/05/21 09:00 Interval history: Patient is a 65-year-old male who is here for pneumonia. Today patient states that he feeling little better however he did state that he was having some nausea vomiting yesterday. Patient also states that he has been weak and having sweats especially at night with fevers. He denies having a cough, chest pain, shortness of breath, chills, decreased appetite. However he is complaining seeing that he is having a hard time keeping food down. However he is little inconsistent with saying that he will vomit when he eats too much however he also states that he vomits when he eats. His white count is elevated this morning at 15.3. He has been started on cefepime, azithromycin, and vancomycin. Glucose on labs was 103 however p.o. sees show him to be in the 3-400s range. He also does have 1-2+ pitting edema on the bilateral lower extremities. It was hard getting over real good review of systems due to patient's mental status. Review of Systems Review of Systems: All systems reviewed & are unremarkable except as noted in HPI and below
[2021-04-05 12:01] VITALS: BMI 21.0
--- NOTE | 2021-04-05 12:39 | PM.CNPUL ---
Assessment and Plan Assessment and plan (1) Pneumonia: Qualifiers: Laterality: bilateral Lung location: lower lobe of lung Pneumonia type: due to unspecified organism Qualified Code(s): J18.9 - Pneumonia, unspecified organism Code(s): J18.9 - Pneumonia, unspecified organism Status: Acute Assessment and Plan: 65-year-old man with diabetes, history of dysphagia and temporary PEG placement in the past, presented with weakness and low-grade fever due to bilateral pneumonia. Since the previous hospitalization approximately 2 weeks ago, he has developed extensive infiltrates bilaterally especially in the lower lobes. The patient's history of dysphagia in conjunction with the bilateral lower lobe infiltrates could indicate aspiration pneumonia. Less likely possibility is pneumonia due to COVID- 19 infection. Plan is as follows: I would continue with current antibiotics at this point, pending sputum culture. Dysphagia workup is in progress. Would also repeat testing for COVID-19 infection, given the the pattern of pulmonary infiltrate distribution. I would start the patient on subQ heparin for DVT prophylaxis. The case was discussed with the patient's hospitalist. (2) Suspected COVID-19 virus infection: Code(s): Z20.822 - Contact with and (suspected) exposure to COVID-19 Status: Acute (3) Dysphagia: Qualifiers: Dysphagia type: unspecified Qualified Code(s): R13.10 - Dysphagia, unspecified Code(s): R13.10 - Dysphagia, unspecified Status: Acute History of Present Illness History of Present Illness Consult date: 04/05/21 Chief complaint: Pneumonia Narrative: This 65-year-old man was admitted into the hospital with weakness and low-grade temperature of 1 day duration. Patient presented to the ER approximately 2 weeks ago with nausea and vomiting. He was hospitalized and workup with a chest CT showed faint infiltrates in both lungs with some tree in bud pattern especially in the right lower lobe. The patient was treated for possible pneumonia with 3 antibiotics including ceftriaxone, azithromycin, and Levaquin. Gold QuantiFERON test was negative for latent TB. He was tested negative for COVID 19 infection via the PCR test. He was discharged home on Levaquin. The patient presented again complaining of some nonspecific complaints like generalized weakness and low-grade temperature. He had no cough or shortness of breath chest pain or hemoptysis. Repeat chest CT showed extensive bilateral infiltrates primarily in lower lobes. Patient was placed back on 3 antibiotics for atypical pneumonia. Upon questioning, he stated that he is feeling little better today. He is not on supplemental oxygen. Past medical history significant for diabetes, gastric paresis, dysphagia with history of temporary PEG placement in the past. He has no history of previous respiratory disease. Review of Systems Review of Systems: Patient reports a weight loss of approximately 10 lb over the last couple of months. He reports no shortness of breath. He denied having chest pain or orthopnea. He has no acid reflux disease. Denied having abdominal pain, diarrhea constipation. He has no joint complaints. He has no history of pedal edema. Patient has been vaccinated with 2 doses of COVID vaccine. [facility] Past Medical History Medical History (Updated 04/05/21 @ 12:51 by Anthony Garcia MD) Dysphagia Encounter for feeding tube placement History of gastrostomy tube placement Which has been removed Hyperlipidemia Type 1 diabetes mellitus with hyperglycemia Surgical History Surgical History H/O knee surgery Broken knee 12/2019 left knee History of cataract extraction Family History Family History Sibling Diabetes mellitus Family history of lung cancer Father Family histor
--- NOTE | 2021-04-05 12:41 | PCSTNOTE ---
Please refer to the Bedside Swallow Evaluation in the EMR. Please note, silent aspiration cannot be ruled out at bedside.
[2021-04-05 13:29] LABS: Glucose Point of Care 311 mg/dl (65-105)
[2021-04-05] MEDS: PANTOPRAZOLE 40 MG TABLET PO ×2 (13:48→21:03)
[2021-04-05] MEDS: INSULIN ASPART (*BKC) 100 UNITS/ML SUB-Q ×2 (13:49→16:27)
[2021-04-05 14:00] VITALS: BP 117/78; PULSE 69; RESP 18; TEMP 36.2; O2SAT 96
[2021-04-05 14:14] LABS: EDCOVIDSCREEN Negative (Negative)
[2021-04-05 16:23] LABS: Glucose Point of Care 325 mg/dl (65-105)
--- NOTE | 2021-04-05 16:42 | WPDGICN ---
Assessment and Plan Assessment and plan (1) Nausea and vomiting: Code(s): R11.2 - Nausea with vomiting, unspecified Status: Acute Assessment and Plan: persistent nausea for over a month and weight loss he had peg at some point will do EGD tomorrow to assess, also h/o DM and wonder if could have gastroparesis (2) Weight loss: Code(s): R63.4 - Abnormal weight loss Status: Acute (3) Atypical pneumonia: Code(s): J18.9 - Pneumonia, unspecified organism Status: Acute Assessment and Plan: on treatment, covid was rule out pulmonary on board (4) Failure to thrive: Status: Acute (5) SIRS (systemic inflammatory response syndrome): Code(s): R65.10 - Systemic inflammatory response syndrome (SIRS) of non-infectious origin without acute organ dysfunction Status: Acute Assessment and Plan: here with fever, leukocytosis and pneumonia on antibiotics (6) Leukocytosis: Code(s): D72.829 - Elevated white blood cell count, unspecified Status: Acute (7) Type 1 diabetes mellitus with hyperglycemia: Code(s): E10.65 - Type 1 diabetes mellitus with hyperglycemia Status: Chronic Assessment and Plan: uncontrolled dm, glucose ~ 300's by primary GI Consult Note Consult date/time: 04/05/21 16:42 Reason for consult: nausea and vomiting, weight loss HPI: Payam Mars is a 65 year old male with history of type 1 diabetes, hyperlipidemia, knee surgery, cataract extraction, history of PEG that has been removed, who is here back again with one month of intermittent nausea and vomiting also was diagnosed with multifocal pneumonia last time, COVID was ruled out and went home just few days ago. He had home health visit that found fever again and he still feeling tired therefore admitted to the hospital. CXR reviewed with similar finding of pneumonia. WBC 15k, started on antibiotics. He is not the best historian but says that after eating will have to throw up, denies difficulty swallowing though. Review of Systems Constitutional: Constitutional: Reports weakness Eyes: Eyes: Denies blurry vision ENT: Reports Normal hearing present Cardiovascular: Cardiovascular: Denies chest pain Respiratory: Respiratory: Reports cough and Reports dyspnea on exertion Gastrointestinal: Gastrointestinal: Reports nausea and Reports vomiting Genitourinary: Genitourinary: Denies dysuria Musculoskeletal: Musculoskeletal: Denies neck pain Integumentary/Breasts: Skin/Breast: Denies dry skin Neurologic: Reports system reviewed and no additional complaints, except as documented Psychiatric: Psychiatric: Reports no additional psychiatric complaints PMFSH Past Medical History Medical History (Updated 04/05/21 @ 16:47 by Boaz Patricio MD) Dysphagia Encounter for feeding tube placement History of gastrostomy tube placement Which has been removed Hyperlipidemia Leukocytosis SIRS (systemic inflammatory response syndrome) Type 1 diabetes mellitus with hyperglycemia Surgical History Surgical History H/O knee surgery Broken knee 12/2019 left knee History of cataract extraction Family History Family History Sibling Diabetes mellitus Family history of lung cancer Father Family history of cardiovascular disease Heart disease Mother Diabetes mellitus Hypertension Family history of thyroid problem Social History Social History Social History: The patient lives with his brother and sister. The patient is a lifelong nonsmoker. He does not use any alcohol marijuana or illicit drugs. 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 The patient stated that his brother and sister would be the durable power real estate attorney for healthcare. The patient is a full code. Smoking statu
[2021-04-05 20:00] VITALS: PULSE 67; RESP 18; O2SAT 95
[2021-04-05] MEDS: INSULIN GLARGINE (*BKC) 100 UNITS/ML 15 UNITS SUB-Q (21:00)
[2021-04-05 21:02] VITALS: BP 127/61; PULSE 67; RESP 18; TEMP 37.1; O2SAT 95
[2021-04-05] MEDS: PRAVASTATIN SODIUM 20 MG TABLET 80 MG PO (21:03)
[2021-04-05 21:22] LABS: Glucose Point of Care 212 mg/dl (65-105)
[2021-04-06] VITALS (8 sets, daily range): BP systolic 112–123; BP diastolic 44–71; PULSE 55–109; RESP 16–24; TEMP 36.5–37.2; O2SAT 93–100
[2021-04-06] MEDS: ONDANSETRON INJ 4 MG/2 ML VIAL IV PUSH (03:00)
[2021-04-06 05:46] LABS: Basophils Percent Auto 0.4 % (0.2-1.2); Eosinophils Absolute Auto 0.3 K/mm3 (0-0.3); Eosinophils Percent Auto 2.8 % (0-4.4); Hematocrit 31.2 % (42.0-52.0); Hemoglobin 10.3 g/dL (14.0-18.0); Immature Granulocyte Absolute 0.05 K/mm3 (0.00-0.031); Immature Granulocyte Percent A 0.5 % (0-0.5); Lymphocytes Percent Auto 6.4 % (18.3-44.2); Mean Corpuscular Hemoglobin 30.9 pg (26-34); Mean Corpuscular Volume 93.7 fl (80-100); Mean Platelet Volume 9.3 fl (7.4-10.4); Monocytes Absolute Auto 0.9 K/mm3 (0.1-0.6); Monocytes Percent Auto 8.1 % (2.6-8.5); Neutrophils Absolute Auto 8.9 K/mm3 (1.3-6.7); Neutrophils Percent Auto 81.8 % (45.5-73.1); Platelet Count Result 171 k/mm3 (150-375); Red Blood Count 3.33 M/mm3 (4.6-6.20); Red Cell Distribution Width 13.3 % (11.5-14.5); White Blood Count 10.9 K/mm3 (4.5-10.0)
[2021-04-06 05:55] LABS: Alanine Aminotransferase 8 U/L (4-50); Albumin Level 2.7 g/dL (3.5-5.1); Alkaline Phosphatase 58 U/L (38-126); Anion Gap 3 mmol/L (8-16); Aspartate Amino Transferase 14 U/L (17-59); Bilirubin,Total 0.3 mg/dL (0.2-1.3); Blood Urea Nitrogen 14 mg/dL (9-20); Calcium 7.7 mg/dL (8.4-10.2); Carbon Dioxide 29 mmol/L (22-30); Chloride 101 mmol/L (98-107); Estimated CRCL calculation 94 ml/min; Estimated Glomerular Filt Rate > 60; Glucose 234 mg/dL (65-110); Potassium 3.9 mmol/L (3.4-5.0); Sodium 133 mmol/L (137-145)
--- NOTE | 2021-04-06 07:49 | P.PNIM_ITS ---
Progress Note: A&P Assessment and Plan (1) Atypical pneumonia: Code(s): J18.9 - Pneumonia, unspecified organism Status: Acute Assessment and Plan: * Patient just discharged on 04/01/2021 for pneumonia * four sputum cultures were collected last admission only 1 grew yeast * blood cultures NGTD * sputum culture collected and pending * id has been consulted * pulmonary has been consulted * high-resolution CT of the chest showed pneumonia involving the right lung and left lower lobe worse since 03/25/2021, trace right and small left pleural effusion new since 03/25/2021 * chest x-ray showed worsened airspace and interstitial opacities in the mid and lower lung zones consistent with pneumonia * Antibiotics changed to IV Zosyn q6hr * Covid test negative * Speech on board for swallow study/barium swallow ordered * GI consulted thank you * EGD showed undigested food, gastroparesis and esophagitis (2) Weight loss: Code(s): R63.4 - Abnormal weight loss Status: Acute Assessment and Plan: * could be from chronic disease * could be from patient not being able to hold food down * previous visits showed GI was consulted and all indicate patient in need of a colonoscopy an EGD * Dr. Pimentel consulted thank you for your recommendations * dietitian consult * speech therapy consult to evaluate swallowing function * patient does have a history of a G-tube * Daily weights (3) Type 1 diabetes mellitus with hyperglycemia: Code(s): E10.65 - Type 1 diabetes mellitus with hyperglycemia Status: Chronic Assessment and Plan: * glucose this morning on labs was 234, POC glucose trend down and was 212 * continue home insulins * lantus 15 units HS, sliding scale, increase to high sliding scale and increase lantus to 18 units * a.c. and HS Accu-Cheks * hypoglycemia protocol * adjust medications as needed * trend glucose * A1c from 03/26/2021 was 7.5 (4) Essential hypertension: Code(s): I10 - Essential (primary) hypertension Status: Acute Assessment and Plan: * blood pressure 119/55 * continue lisinopril 2.5 mg p.o. daily * trend blood pressures * adjust medications as needed (5) Nausea and vomiting: Code(s): R11.2 - Nausea with vomiting, unspecified Status: Acute Assessment and Plan: * patient reports intermittent / chronic nausea vomiting especially with eating * started patient on Protonix p.o. 40 mg b.i.d. * speech therapy to evaluate to ensure patient swallowing correctly * GI consulted thank you for your recommendations * CT of the chest abdomen and pelvis showed moderate colonic stool and sigmoid diverticulosis from 03/25/21 * EGD showed gastroparesis with esophagitis * Diet modification to include smaller more frequent meals (6) Hyperlipidemia: Code(s): E78.5 - Hyperlipidemia, unspecified Status: Acute Assessment and Plan: * continue home pravastatin 80 mg p.o. at bedtime * Lipid panel in the am (7) Dysphagia: Qualifiers: Dysphagia type: unspecified Qualified Code(s): R13.10 - Dysphagia, unspecified Code(s): R13.10 - Dysphagia, unspecified Status: Acute Assessment and Plan: * ST consulted for swallow study * Barium swallow ordered for tomorrow * history of peg tube * GI consulted * EG
--- NOTE | 2021-04-06 07:49 | PM.IMPN ---
Progress Note: A&P Assessment and Plan (1) Atypical pneumonia: Code(s): J18.9 - Pneumonia, unspecified organism Status: Acute Assessment and Plan: Patient just discharged on 04/01/2021 for pneumonia four sputum cultures were collected last admission only 1 grew yeast blood cultures NGTD sputum culture collected and pending id has been consulted pulmonary has been consulted high-resolution CT of the chest showed pneumonia involving the right lung and left lower lobe worse since 03/25/2021, trace right and small left pleural effusion new since 03/25/2021 chest x-ray showed worsened airspace and interstitial opacities in the mid and lower lung zones consistent with pneumonia Antibiotics changed to IV Zosyn q6hr Covid test negative Speech on board for swallow study/barium swallow ordered GI consulted thank you EGD showed undigested food, gastroparesis and esophagitis (2) Weight loss: Code(s): R63.4 - Abnormal weight loss Status: Acute Assessment and Plan: could be from chronic disease could be from patient not being able to hold food down previous visits showed GI was consulted and all indicate patient in need of a colonoscopy an EGD Dr. Pimentel consulted thank you for your recommendations dietitian consult speech therapy consult to evaluate swallowing function patient does have a history of a G-tube Daily weights (3) Type 1 diabetes mellitus with hyperglycemia: Code(s): E10.65 - Type 1 diabetes mellitus with hyperglycemia Status: Chronic Assessment and Plan: glucose this morning on labs was 234, POC glucose trend down and was 212 continue home insulins lantus 15 units HS, sliding scale, increase to high sliding scale and increase lantus to 18 units a.c. and HS Accu-Cheks hypoglycemia protocol adjust medications as needed trend glucose A1c from 03/26/2021 was 7.5 (4) Essential hypertension: Code(s): I10 - Essential (primary) hypertension Status: Acute Assessment and Plan: blood pressure 119/55 continue lisinopril 2.5 mg p.o. daily trend blood pressures adjust medications as needed (5) Nausea and vomiting: Code(s): R11.2 - Nausea with vomiting, unspecified Status: Acute Assessment and Plan: patient reports intermittent / chronic nausea vomiting especially with eating started patient on Protonix p.o. 40 mg b.i.d. speech therapy to evaluate to ensure patient swallowing correctly GI consulted thank you for your recommendations CT of the chest abdomen and pelvis showed moderate colonic stool and sigmoid diverticulosis from 03/25/21 EGD showed gastroparesis with esophagitis Diet modification to include smaller more frequent meals (6) Hyperlipidemia: Code(s): E78.5 - Hyperlipidemia, unspecified Status: Acute Assessment and Plan: continue home pravastatin 80 mg p.o. at bedtime Lipid panel in the am (7) Dysphagia: Qualifiers: Dysphagia type: unspecified Qualified Code(s): R13.10 - Dysphagia, unspecified Code(s): R13.10 - Dysphagia, unspecified Status: Acute Assessment and Plan: ST consulted for swallow study Barium swallow ordered for tomorrow history of peg tube GI consulted EGD showed gastroparesis with esophagitis, and undigested food Diet modification to include smaller more frequent meals (8) Failure to thrive: Status: Acute Assessment and Plan: significant weight loss noted hemstitcher consult daily weights (9) SIRS (systemic inflammatory response syndrome): Code(s): R65.10 - Systemic inflammatory response syndrome (SIRS) of non-infectious origin without acute organ dysfunction Status: Acute Assessment and Plan: VS: Temp:37.6, HR 68, RR 17, BP 94/77, Pulseox 95%
[2021-04-06 08:22] LABS: Glucose Point of Care 184 mg/dl (65-105)
--- NOTE | 2021-04-06 09:30 | PCSTNOTE ---
MODIFIED BARIUM SWALLOW STUDY IS ORDERED TODAY BUT TO BE COMPLETED TOMORROW, 04/07/21.
[2021-04-06] MEDS: lisinopriL 2.5 MG TABLET PO (09:42)
[2021-04-06] MEDS: PANTOPRAZOLE 40 MG TABLET PO ×2 (09:42→20:37)
[2021-04-06] MEDS: ASPIRIN 81 MG ENTERIC TABLET PO (09:42)
--- NOTE | 2021-04-06 09:56 | WPDINFPN2 ---
Progress Note: A&P Assessment and Plan (1) Pneumonia: Qualifiers: Pneumonia type: due to unspecified organism Laterality: bilateral Lung location: lower lobe of lung Qualified Code(s): J18.9 - Pneumonia, unspecified organism Code(s): J18.9 - Pneumonia, unspecified organism Status: Acute Assessment and Plan: 1. Lung infiltrates, community acquired bacterial pneumonia vs other 2. DM poor control 3. Weight loss due to N/V, eval in process REC PipTazo #1 (antibiotic #3). MRSA nasal screen. Pulmonary following for non-infectious causes of his present illness. Glycemic control Subjective Date/time seen: 04/06/21 09:56 Objective Data Vital Signs Vital Signs: Vital Signs - 24 hr 04/05/21 14:00 04/05/21 20:00 04/05/21 21:02 Temperature 36.2 C L 37.1 C Pulse Rate 69 67 67 Respiratory Rate 18 18 18 Blood Pressure 117/78 127/61 Pulse Oximetry 96 95 95 04/06/21 06:00 Temperature 37.2 C Pulse Rate 109 H Respiratory Rate 16 Blood Pressure 119/55 L Pulse Oximetry 96 Intake/Output Intake/Output: Intake & Output 04/03/21 04/04/21 04/05/21 04/06/21 23:59 23:59 23:59 23:59 Intake Total 1300 2330 450 Output Total 925 900 Balance 1300 1405 -450 Meds/Results Medications: Active Medications Generic Name Dose Route Start Last Admin Trade Name Freq PRN Reason Stop Dose Admin Aspirin 81 mg 04/06/21 09:00 04/06/21 09:42 Aspirin 81 Mg Enteric Tablet PO 81 mg DAILY ANJUM Administration Dextrose 12.5 gm 04/05/21 13:07 Dextrose 50% 25 Gm/50 Ml Syringe IV PUSH PRN PRN Hypoglycemia Protocol Glucagon 1 mg 04/05/21 13:07 Glucagon For Inj 1 Mg Vial IM PRN PRN Hypoglycemia Protocol Glucose 15 gm 04/05/21 13:07 Glucose Oral Gel 15 Gm Of Glucse In 37.5 Gm Tube PO PRN PRN Hypoglycemia Protocol Cefepime HCl 2 gm in 50 mls @ 100 mls/hr 04/05/21 02:00 04/06/21 02:29 Maxipime 2 Gm/D5w 50 Ml IVPB Infused Q8H ANJUM Infusion Azithromycin 500 mg in 250 mls @ 250 mls/hr 04/05/21 02:30 04/06/21 03:27 Zithromax IVPB Infused Q24H ANJUM Infusion Dextrose 1,000 mls @ 100 mls/hr 04/05/21 13:07 Dextrose 5% 1,000 Ml IVPB PRN PRN Hypoglycemia Protocol Vancomycin HCl 1,000 mg in 250 mls @ 250 mls/hr 04/06/21 09:00 04/06/21 09:43 Vancomycin 1,000 Mg/D5w 250 Ml IVPB 250 mls/hr Q12HR ANJUM Administration Insulin Aspart 4 - 8 units 04/06/21 12:00 Insulin Aspart (*Bkc) 100 Units/Ml SUB-Q TIDWM ANJUM Protocol Insulin Glargine 18 units 04/06/21 21:00 Insulin Glargine (*Bkc) 100 Units/Ml SUB-Q HS ANJUM Lisinopril 2.5 mg 04/06/21 09:00 04/06/21 09:42 Lisinopril 2.5 Mg Tablet PO 2.5 mg DAILY ANJUM Administration Pantoprazole Sodium 40 mg 04/05/21 12:00 04/06/21 09:42 Pantoprazole 40 Mg Tablet PO 40 mg Q12HR ANJUM Administration Pravastatin Sodium 80 mg 04/05/21 21:00 04/05/21 21:03 Pravastatin Sodium 20 Mg Tablet PO 80 mg HS ANJUM Administration Radiology Results: ITS Impressions Chest X-Ray 04/04/21 17:12 IMPRESSION: 1. Worsened airspace and interstitial opacities in the mid and lower lung zones, consistent with pneumonia. High Resolution CT 04/05/21 09:13 IMPRESSION: 1. Pneumonia involving right lung and left lower lobe, worsened from 03/25/2021. 2. Trace right and small left pleural effusions, new from 03/25/2021. Labs Labs: Laboratory Results - last 24 hr 04/05/21 04/05/21 04/05/21 11:34 13:21 13:51 WBC RBC Hgb Hct MCV MCH MCHC RDW Plt Count MPV Immature Gran % (Auto) Neut % (Auto) Lymph % (Auto) [place] % (Auto) Eos % (Auto) Baso % (Auto) Lymph # (Auto) [place] # (Auto) Eos # (Auto) Baso # (Auto) Abs Immat Gran (auto) Absolute Neuts (auto) Absolute Nucleated RBC Nucleated RBC % Sodium Potassium Chloride Carbon
--- NOTE | 2021-04-06 10:50 | PM.PNPUL ---
Progress Note: A&P Assessment and Plan (1) Dysphagia: Qualifiers: Dysphagia type: unspecified Qualified Code(s): R13.10 - Dysphagia, unspecified Code(s): R13.10 - Dysphagia, unspecified Status: Acute (2) Pneumonia: Qualifiers: Pneumonia type: due to unspecified organism Laterality: bilateral Lung location: lower lobe of lung Qualified Code(s): J18.9 - Pneumonia, unspecified organism Code(s): J18.9 - Pneumonia, unspecified organism Status: Acute Assessment and Plan: Respiratory status essentially unchanged. Antibiotics were changed by ID professional employer consultant, currently on just Zosyn IV. workup for possible dysphagia with aspiration pneumonia in progress. continue with current treatment, monitor O2 sat. Out of bed to chair. Subjective Date/time seen: 04/06/21 10:50 patient without any new respiratory symptoms. Overall feeling better. Remaining on ambient air. Review of Systems Review of Systems: All systems reviewed & are unremarkable except as noted in HPI and below (H & P) Exam Narrative: GENERAL APPEARANCE: Well developed, well nourished, alert and cooperative, who appears to be in no acute distress while breathing ambient air SKIN: Inspection of the skin reveals no rashes, ulcerations or petechiae. HEENT: Sclerae anicteric and conjunctivae pink and moist. Extraocular movements were intact and pupils were equal, round. The oral mucosa, hard and soft palate, tongue and posterior pharynx were normal. Edentulous. NECK: Supple. There was no thyroid enlargement, and no tenderness, or masses were felt. CHEST: Normal AP diameter and normal contour without any kyphoscoliosis. LUNGS: Auscultation of the lungs revealed crackles at bases posteriorly. No wheezing. CARDIAC: There was a regular rate and rhythm without any murmurs, gallops, rubs. ABDOMEN: Soft and nontender with normal bowel sounds. There was no organomegaly. LYMPH NODES: No lymphadenopathy was appreciated in the neck. EXTREMITIES: No cyanosis, clubbing or edema. NEUROLOGIC: Alert and oriented x 3. Normal affect. Objective Data Vital Signs Vital Signs: Vital Signs - 24 hr 04/05/21 14:00 04/05/21 20:00 04/05/21 21:02 Temperature 36.2 C L 37.1 C Pulse Rate 69 67 67 Respiratory Rate 18 18 18 Blood Pressure 117/78 127/61 Pulse Oximetry 96 95 95 10/06/21 06:00 Temperature 37.2 C Pulse Rate 109 H Respiratory Rate 16 Blood Pressure 119/55 L Pulse Oximetry 96 Intake/Output Intake/Output: Intake & Output 04/03/21 04/04/21 04/05/21 04/06/21 23:59 23:59 23:59 23:59 Intake Total 1300 2330 450 Output Total 925 900 Balance 1300 1405 -450 Meds/Results Medications: Active Medications Generic Name Dose Route Start Last Admin Trade Name Freq PRN Reason Stop Dose Admin Aspirin 81 mg 04/06/21 09:00 04/06/21 09:42 Aspirin 81 Mg Enteric Tablet PO 81 mg DAILY ANJUM Administration Dextrose 12.5 gm 04/05/21 13:07 Dextrose 50% 25 Gm/50 Ml Syringe IV PUSH PRN PRN Hypoglycemia Protocol Glucagon 1 mg 04/05/21 13:07 Glucagon For Inj 1 Mg Vial IM PRN PRN Hypoglycemia Protocol Glucose 15 gm 04/05/21 13:07 Glucose Oral Gel 15 Gm Of Glucse In 37.5 Gm Tube PO PRN PRN Hypoglycemia Protocol Dextrose 1,000 mls @ 100 mls/hr 04/05/21 13:07 Dextrose 5% 1,000 Ml IVPB PRN PRN Hypoglycemia Protocol Piperacillin/Tazobactam/Dextrose 3.375 gm in 50 mls @ 100 mls/hr 04/06/21 10:30 Zosyn 3.375 Gm/D5w 50ml Pm IVPB Q6HR ANJUM Lactated Ringer's 1,000 mls @ 150 mls/hr 04/06/21 10:25 Lr - Lactated Ringers Iv IV CONT .Q6H40M [facility] Insulin Aspart 4 - 8 units 04/06/21 12:00 Insulin Aspart (*Bkc) 100 Units/Ml SUB-Q TIDWM [facility] Protocol Insulin Glargine 18 units 04/06/21 21:00 Insulin Glargine (*Bkc) 100 Units/Ml SUB-Q HS [facility] Lisinopril 2.5 mg 04/06/21 09:00 04/06/21 09:42 Lisinop
[2021-04-06 11:41] LABS: Glucose Point of Care 225 mg/dl (65-105)
[2021-04-06] MEDS: LACTATED RINGERS 1,000 ML 150 ML IV CONT (12:23)
--- NOTE | 2021-04-06 12:33 | WPDANESEPPF ---
Anes - Initial Pre Proc Eval Procedure: Operation Date: 04/06/21 14:30 Proposed Procedures p Esophagogastroduodenoscopy - Boaz Patricio MD Date/Time: 04/06/21 12:33 Surgeon: Mandy Drew MD Pre Op Diagnosis: Pneumonia Patient Data Age: 65 Gender: M Height: 1.88 m Weight: 74.4 kg Last Vital Signs Temp 36.8 C 04/06/21 12:25 Pulse 63 04/06/21 12:25 Resp 20 04/06/21 12:25 BP 121/64 04/06/21 12:25 Pulse Ox 97 04/06/21 12:25 Allergies Allergy/AdvReac Type Severity Reaction Status Date / Time No Known Allergies Allergy Verified 03/25/21 09:33 Home Medications Medication Instructions Recorded Confirmed Type aspirin 81 mg tablet,delayed 81 mg PO DAILY 06/19/19 04/04/21 History release blood sugar diagnostic #100 each 08/14/19 04/04/21 Rx lancets 26 gauge #100 each 03/01/20 04/04/21 Rx blood-glucose meter,continuous #1 each 04/05/20 04/04/21 Rx blood-glucose transmitter #1 each 04/05/20 04/04/21 Rx glucagon 1 mg/0.2 mL subcutaneous 1 mg SUBCUT ONCE PRN #0.4 ml 11/10/20 04/04/21 Rx auto-injector blood-glucose sensor #3 each 01/19/21 04/04/21 Rx pen needle, diabetic 32 gauge x #400 ea 02/02/21 04/04/21 Rx 5/32 Dexcom G6 Sensor 03/25/21 04/04/21 History Lantus Solostar U-100 Insulin 16 unit SUBCUT HS 03/25/21 04/04/21 History insulin aspart U-100 [Novolog 6 unit SUBCUT TIDWMEAL 03/25/21 04/04/21 History Flexpen U-100 Insulin] insulin lispro 3 unit SUBCUT DAILY 03/25/21 04/04/21 History lisinopril [Zestril] 2.5 mg PO DAILY 03/25/21 04/04/21 History pravastatin 80 mg PO HS 03/25/21 04/04/21 History levofloxacin 500 mg PO DAILY #5 tablet 04/01/21 04/04/21 Rx Laboratory Tests 04/05/21 04/05/21 04/05/21 13:21 13:51 16:19 WBC RBC Hgb Hct MCV MCH MCHC RDW Plt Count MPV Immature Gran % (Auto) Neut % (Auto) Lymph % (Auto) [place] % (Auto) Eos % (Auto) Baso % (Auto) Lymph # (Auto) [place] # (Auto) Eos # (Auto) Baso # (Auto) Abs Immat Gran (auto) Absolute Neuts (auto) Absolute Nucleated RBC Nucleated RBC % Sodium Potassium Chloride Carbon Dioxide Anion Gap BUN Creatinine Estim Creat Clear Calc Estimated GFR Glucose POC Capillary Glucose 311 mg/dl H mg/dl 325 mg/dl H mg/dl (65-105) (65-105) Calcium Magnesium Total Bilirubin AST ALT Alkaline Phosphatase Total Protein Albumin SARS-CoV-2 IgG/IgM Ag?Rapid Negative (Negative) 04/05/21 04/06/21 04/06/21 20:59 05:31 05:31 WBC 10.9 K/mm3 H K/mm3 (4.5-10.0) RBC 3.33 M/mm3 L M/mm3 (4.6-6.20) Hgb 10.3 g/dL L g/dL (14.0-18.0) Hct 31.2 % L % (42.0-52.0) MCV 93.7 fl fl (80-100) MCH 30.9 pg pg (26-34) MCHC 33.0 g/dl g/dl (32-36) RDW 13.3 % % (11.5-14.5) Plt Count 171 k/mm3 k/mm3 (150-375) MPV 9.3 fl fl (7.4-10.4) Immature Gran % (Auto) 0.5 % % (0-0.5) Neut % (Auto) 81.8 % H % (45.5-73.1) Lymph % (Auto) 6.4 % L % (18.3-44.2) [place] % (Auto) 8.1 % % (2.6-8.5) Eos % (Auto) 2.8 % % (0-4.4) Baso % (Auto) 0.4 % % (0.2-1.2) Lymph # (Auto) 0.70 K/mm3 L K/mm3 (0.9-3.2) [place] # (Auto) 0.9 K/mm3 H K/mm3 (0.1-0.6) Eos # (Auto) 0.3 K/mm3 K/mm3 (0-0.3) Baso # (Auto) 0.0 K/mm3 K/mm3 (0.0-0.1) Abs Immat Gran (auto) 0.05 K/mm3 H K/mm3 (0.00-0.031) Absolute Neuts (
--- NOTE | 2021-04-06 12:36 | CONS_ITS ---
DATE OF CONSULTATION: 04/06/2021 REASON FOR CONSULTATION: Lung infiltrates. HISTORY OF PRESENT ILLNESS: A 65-year-old male who is a poor historian. He was here in the hospital at the end of March with shortness of breath. He was treated for community-acquired pneumonia and discharged. I cannot tell from his discharge summary if he was given oral antibiotics at the time of discharge. He returned here several days later on April 04 with ongoing shortness of breath. He was admitted. He has been given cefepime, azithromycin, and vancomycin, and consultation requested. He has minimal cough. No sputum production. He denies any shortness of breath currently. He is on no O2. He has had no chest pain. No events here in the hospital. He has lost weight in the last year, though cannot quantify. He ascribes this to recurrent and persistent nausea and vomiting. He is a nonsmoker and apparently no previous chronic lung disease. ALLERGIES: NONE KNOWN. PRESENT MEDICATIONS: Extensive list reviewed. No immunosuppressants. HABITS: No tobacco, alcohol, or illicit drugs. FAMILY HISTORY: Not pertinent to his present illness. SOCIAL HISTORY: Lives with his brother and sister locally. He is retired. PRESENT MEDICATIONS: See above. REVIEW OF SYSTEMS: Compromised by the patient's memory. A 14-point review otherwise negative. PAST MEDICAL HISTORY: He reports diabetes mellitus x10 to 15 years. Record indicates type 1 variant. Also has a history of hyperlipidemia, previous PEG, indication not available other than dysphagia. PHYSICAL EXAMINATION: GENERAL: Chronically ill-appearing male, in no respiratory distress. VITAL SIGNS: Has been consistently afebrile, 109, 16, 96% on room air, 119/55. SKIN: Warm and dry. No rashes. No tenting. NODES: He has no cervical or axillary adenopathy. EENT: Pupils equal, round, and reactive to light. No conjunctival injection. He has very poor dentition. The oropharynx, oral mucosa normal. NECK: No mass, thyromegaly, asymmetry, stridor, or meningismus. LUNGS: Clear to auscultation and percussion. No egophony, no fremitus. CARDIAC: Tachycardic, regular. No murmur, gallop, or rub. Pulses are 1+. ABDOMEN: Soft, nondistended. Normal bowel sounds. No organomegaly. No masses. EXTREMITIES: Well perfused without clubbing, cyanosis, edema. NEUROLOGIC: Awake, alert, oriented, appropriate. LABORATORY DATA: Sputum 03/27 with yeast. Blood cultures 03/25, final no growth, repeated 04/04, no growth so far. His white count was 15.3 on admission, 10.9 today, similar trend last admission with a white count 20.7 on arrival, 13.9 the following day and normal thereafter. Hemoglobin is 10.3, platelets are 171, his differential is normal. He has mild hyponatremia. Chemistry panel otherwise normal except for glucose 234. His hemoglobin A1c was 7.5% on 03/26. Albumin 2.7. Liver function tests otherwise normal. Coronavirus assay 04/05, nonreactive. His QuantiFERON 03/28 nonreactive. RADIOLOGY: I personally reviewed his chest x-ray. He has on portable film mid to lower lung field infiltrates. ASSESSMENT: 1. Dyspnea, not responsive to previous course of antibiotics. He has abnormal chest x-ray and leukocytosis as well. Considerations include bacterial community-acquired pneumonia, viral community-acquired pneumonia or noninfectious causes. Aspiration pneumonitis is in the differential. I doubt mycobacterial or fungal disease despite his sputum culture. I think the latter is a commensal. Noninfectious causes of his present illness are also under consideration including hypersensitivity, autoimmune, tumor, sarcoidosis or vascular. 2. Weight loss due to nausea and vomiting. In turn, this may be due to diabetic gastroparesi
[2021-04-06 12:39] LABS: Glucose Point of Care 192 mg/dl (65-105)
[2021-04-06 13:52] LABS: Glucose Point of Care 185 mg/dl (65-105)
[2021-04-06] MEDS: METOCLOPRAMIDE HCL INJ 10 MG/2 ML VIAL 5 MG IV PUSH ×2 (17:59→23:51)
[2021-04-06] MEDS: SUCRALFATE SUSP 100 MG/ML 10 ML UDC 1000 MG PO ×2 (17:59→20:36)
[2021-04-06 18:26] LABS: Add Urine Microscopic? YES; Appearance Urine Clear (Clear); Bacteria Urine Trace /hpf; Bilirubin Urine Negative (Negative); Blood Urine Negative (Negative); Color Urine Straw (Yellow); Glucose Urine UA 1+ mg/dL (Negative); Ketones Urine Negative (Negative); Leukocyte Esterase Ur Negative LEU/UL (Negative); Mucus Urine Rare /lpf; Nitrate Urine Negative (Negative); Protein Urine 1+ mg/dL (Negative); RBC Urine 0-2 /hpf (0-2); Specific Grav Ur 1.009 (1.001-1.035); Urobilinogen Urine Negative mg/dL (<2.0); WBC Urine 0-3 /hpf
[2021-04-06 19:00] LABS: Glucose Point of Care 169 mg/dl (65-105)
[2021-04-06] MEDS: INSULIN GLARGINE (*BKC) 100 UNITS/ML 18 UNITS SUB-Q (20:32)
[2021-04-06] MEDS: PRAVASTATIN SODIUM 20 MG TABLET 80 MG PO (20:36)
[2021-04-06 20:41] LABS: Glucose Point of Care 221 mg/dl (65-105)
[2021-04-07] MEDS: METOCLOPRAMIDE HCL INJ 10 MG/2 ML VIAL 5 MG IV PUSH ×4 (05:32→23:39)
[2021-04-07] MEDS: SUCRALFATE SUSP 100 MG/ML 10 ML UDC 1000 MG PO ×4 (05:32→20:40)
[2021-04-07 05:38] LABS: Basophils Absolute Auto 0.1 K/mm3 (0.0-0.1); Basophils Percent Auto 0.8 % (0.2-1.2); Eosinophils Absolute Auto 0.2 K/mm3 (0-0.3); Eosinophils Percent Auto 2.6 % (0-4.4); Hematocrit 30.8 % (42.0-52.0); Immature Granulocyte Absolute 0.03 K/mm3 (0.00-0.031); Immature Granulocyte Percent A 0.4 % (0-0.5); Lymphocytes Absolute Auto 0.73 K/mm3 (0.9-3.2); Lymphocytes Percent Auto 9.1 % (18.3-44.2); Mean Corpuscular HGB Conc 32.5 g/dl (32-36); Mean Corpuscular Hemoglobin 30.3 pg (26-34); Mean Corpuscular Volume 93.3 fl (80-100); Mean Platelet Volume 9.1 fl (7.4-10.4); Monocytes Absolute Auto 0.7 K/mm3 (0.1-0.6); Monocytes Percent Auto 8.4 % (2.6-8.5); Neutrophils Absolute Auto 6.3 K/mm3 (1.3-6.7); Neutrophils Percent Auto 78.7 % (45.5-73.1); Platelet Count Result 182 k/mm3 (150-375); Red Cell Distribution Width 13.2 % (11.5-14.5)
[2021-04-07 05:52] LABS: Alanine Aminotransferase 8 U/L (4-50); Albumin Level 2.7 g/dL (3.5-5.1); Alkaline Phosphatase 55 U/L (38-126); Anion Gap 2 mmol/L (8-16); Aspartate Amino Transferase 21 U/L (17-59); Bilirubin,Total 0.2 mg/dL (0.2-1.3); Blood Urea Nitrogen 15 mg/dL (9-20); Calcium 8.1 mg/dL (8.4-10.2); Carbon Dioxide 35 mmol/L (22-30); Chloride 100 mmol/L (98-107); Cholesterol 51 mg/dL (0-200); Estimated CRCL calculation 68 ml/min; Estimated Glomerular Filt Rate > 60; Glucose 205 mg/dL (65-110); HDL Direct 17 mg/dL; Potassium 4.3 mmol/L (3.4-5.0); Sodium 137 mmol/L (137-145); Triglycerides 66 mg/dL (<150)
[2021-04-07 06:00] VITALS: BP 123/55; PULSE 66; RESP 18; TEMP 36.6; O2SAT 94
[2021-04-07 06:06] LABS: LDL Cholesterol Direct < 30 mg/dL
[2021-04-07 06:47] LABS: Glucose Point of Care 175 mg/dl (65-105)
--- NOTE | 2021-04-07 07:43 | P.PNIM_ITS ---
Progress Note: A&P Assessment and Plan (1) Atypical pneumonia: Code(s): J18.9 - Pneumonia, unspecified organism Status: Acute Assessment and Plan: * Patient just discharged on 04/01/2021 for pneumonia * four sputum cultures were collected last admission only 1 grew yeast * blood cultures NGTD * sputum culture NGTD * ID has been consulted * pulmonary has been consulted * high-resolution CT of the chest showed pneumonia involving the right lung and left lower lobe worse since 03/25/2021, trace right and small left pleural effusion new since 03/25/2021 * chest x-ray showed worsened airspace and interstitial opacities in the mid and lower lung zones consistent with pneumonia (04/04/21) * Repeat chest xray: Mildly increased bilateral pulmonary infiltrates since 04/04/2021 * Antibiotics changed to IV Zosyn q6hr * Covid test negative * Speech on board for swallow study/barium swallow ordered * GI consulted thank you * EGD showed undigested food, gastroparesis and esophagitis (2) Weight loss: Code(s): R63.4 - Abnormal weight loss Status: Acute Assessment and Plan: * could be from chronic disease * could be from patient not being able to hold food down * previous visits showed GI was consulted and all indicate patient in need of a colonoscopy an EGD * Dr. Pimentel consulted thank you for your recommendations * dietitian consult- thank you for all your help * speech therapy consult to evaluate swallowing function * Barium swallow: Found aspiration with thin liquids, food did not show to have problems * patient does have a history of a G-tube * Daily weights (3) Type 1 diabetes mellitus with hyperglycemia: Code(s): E10.65 - Type 1 diabetes mellitus with hyperglycemia Status: Chronic Assessment and Plan: * glucose this morning on labs was 205, POC glucose trend down and was 175 * continue home insulins * lantus 15 units HS, sliding scale, increase to high sliding scale and increase lantus to 18 units * a.c. and HS Accu-Cheks * hypoglycemia protocol * adjust medications as needed * trend glucose * A1c from 03/26/2021 was 7.5 (4) Essential hypertension: Code(s): I10 - Essential (primary) hypertension Status: Acute Assessment and Plan: * blood pressure 123/55 * continue lisinopril 2.5 mg p.o. daily * trend blood pressures * adjust medications as needed (5) Nausea and vomiting: Code(s): R11.2 - Nausea with vomiting, unspecified Status: Acute Assessment and Plan: * patient reports intermittent / chronic nausea vomiting especially with eating * started patient on Protonix PO 40 mg b.i.d. * speech therapy to evaluate to ensure patient swallowing correctly * GI consulted thank you for your recommendations * CT of the chest abdomen and pelvis showed moderate colonic stool and sigmoid diverticulosis from 03/25/21 * EGD showed gastroparesis with esophagitis * Diet modification to include smaller more frequent meals (6) Hyperlipidemia: Code(s): E78.5 - Hyperlipidemia, unspecified Status: Acute Assessment and Plan: * continue home pravastatin 80 mg p.o. at bedtime * Lipid panel: Cholesterol 51, triglycerides 66, LDL less than 30, HDL 17 (7) Dysphagia: Qualifiers: Dysphagia type: unspecified Qualified Code(s): R13.10 - Dysphagia,
--- NOTE | 2021-04-07 07:43 | PM.IMPN ---
Progress Note: A&P Assessment and Plan (1) Atypical pneumonia: Code(s): J18.9 - Pneumonia, unspecified organism Status: Acute Assessment and Plan: Patient just discharged on 04/01/2021 for pneumonia four sputum cultures were collected last admission only 1 grew yeast blood cultures NGTD sputum culture NGTD ID has been consulted pulmonary has been consulted high-resolution CT of the chest showed pneumonia involving the right lung and left lower lobe worse since 03/25/2021, trace right and small left pleural effusion new since 03/25/2021 chest x-ray showed worsened airspace and interstitial opacities in the mid and lower lung zones consistent with pneumonia (04/04/21) Repeat chest xray: Mildly increased bilateral pulmonary infiltrates since 04/04/2021 Antibiotics changed to IV Zosyn q6hr Covid test negative Speech on board for swallow study/barium swallow ordered GI consulted thank you EGD showed undigested food, gastroparesis and esophagitis (2) Weight loss: Code(s): R63.4 - Abnormal weight loss Status: Acute Assessment and Plan: could be from chronic disease could be from patient not being able to hold food down previous visits showed GI was consulted and all indicate patient in need of a colonoscopy an EGD Dr. Pimentel consulted thank you for your recommendations dietitian consult- thank you for all your help speech therapy consult to evaluate swallowing function Barium swallow: Found aspiration with thin liquids, food did not show to have problems patient does have a history of a G-tube Daily weights (3) Type 1 diabetes mellitus with hyperglycemia: Code(s): E10.65 - Type 1 diabetes mellitus with hyperglycemia Status: Chronic Assessment and Plan: glucose this morning on labs was 205, POC glucose trend down and was 175 continue home insulins lantus 15 units HS, sliding scale, increase to high sliding scale and increase lantus to 18 units a.c. and HS Accu-Cheks hypoglycemia protocol adjust medications as needed trend glucose A1c from 03/26/2021 was 7.5 (4) Essential hypertension: Code(s): I10 - Essential (primary) hypertension Status: Acute Assessment and Plan: blood pressure 123/55 continue lisinopril 2.5 mg p.o. daily trend blood pressures adjust medications as needed (5) Nausea and vomiting: Code(s): R11.2 - Nausea with vomiting, unspecified Status: Acute Assessment and Plan: patient reports intermittent / chronic nausea vomiting especially with eating started patient on Protonix PO 40 mg b.i.d. speech therapy to evaluate to ensure patient swallowing correctly GI consulted thank you for your recommendations CT of the chest abdomen and pelvis showed moderate colonic stool and sigmoid diverticulosis from 03/25/21 EGD showed gastroparesis with esophagitis Diet modification to include smaller more frequent meals (6) Hyperlipidemia: Code(s): E78.5 - Hyperlipidemia, unspecified Status: Acute Assessment and Plan: continue home pravastatin 80 mg p.o. at bedtime Lipid panel: Cholesterol 51, triglycerides 66, LDL less than 30, HDL 17 (7) Dysphagia: Qualifiers: Dysphagia type: unspecified Qualified Code(s): R13.10 - Dysphagia, unspecified Code(s): R13.10 - Dysphagia, unspecified Status: Acute Assessment and Plan: ST consulted for swallow study Barium swallow ordered for tomorrow history of peg tube GI consulted EGD showed gastroparesis with esophagitis, and undigested food Diet modification to include smaller more frequent meals (8) Failure to thrive: Status: Acute Assessment and Plan: significant weight loss noted ring facer consult daily weights (9) SIRS (systemic inflammatory respons
--- NOTE | 2021-04-07 09:23 | PCOTNOTE ---
Attempted OT evaluation, per RN patient is off the unit for a test, will follow and attempt at later time.
[2021-04-07] MEDS: lisinopriL 2.5 MG TABLET PO (09:40)
[2021-04-07] MEDS: ASPIRIN 81 MG ENTERIC TABLET PO (09:40)
[2021-04-07] MEDS: PANTOPRAZOLE 40 MG TABLET PO ×2 (09:40→20:40)
--- NOTE | 2021-04-07 09:40 | WPDANESPN ---
Anes - Prog Note Post-Op Date/Time: 04/07/21 09:40 Cardiovascular status: normal Respiratory status: normal Airway patency: baseline Mental status: baseline Vital Signs: Last Vital Signs Temp 36.6 C 04/07/21 06:00 Pulse 66 04/07/21 06:00 Resp 18 04/07/21 06:00 BP 123/55 L 04/07/21 06:00 Pulse Ox 94 04/07/21 06:00 Pain Score (VAS): 0 I/O: Intake & Output 04/06/21 04/07/21 04/07/21 23:59 07:59 15:59 Intake Total 590 500 360 Output Total 1550 400 Balance -960 100 360 Laboratory Tests 04/07/21 05:27 04/07/21 05:28 04/06/21 04/06/21 04/06/21 11:20 12:36 13:50 WBC RBC Hgb Hct MCV MCH MCHC RDW Plt Count MPV Immature Gran % (Auto) Neut % (Auto) Lymph % (Auto) [place] % (Auto) Eos % (Auto) Baso % (Auto) Lymph # (Auto) [place] # (Auto) Eos # (Auto) Baso # (Auto) Abs Immat Gran (auto) Absolute Neuts (auto) Absolute Nucleated RBC Nucleated RBC % Sodium Potassium Chloride Carbon Dioxide Anion Gap BUN Creatinine Estim Creat Clear Calc Estimated GFR Glucose POC Capillary Glucose 225 H 192 H 185 H Calcium Total Bilirubin AST ALT Alkaline Phosphatase Total Protein Albumin Triglycerides Cholesterol LDL Cholesterol Direct HDL Direct Urine Color Urine Appearance Urine pH Ur Specific [place] Urine Protein Urine Glucose (UA) Urine Ketones Ur Blood (Man) Urine Nitrate Urine Bilirubin Urine Urobilinogen Leukocyte Esterase Rfl Urine RBC Urine WBC Urine Bacteria Urine Mucus 04/06/21 04/06/21 04/06/21 18:10 18:16 20:31 WBC RBC Hgb Hct MCV MCH MCHC RDW Plt Count MPV Immature Gran % (Auto) Neut % (Auto) Lymph % (Auto) [place] % (Auto) Eos % (Auto) Baso % (Auto) Lymph # (Auto) [place] # (Auto) Eos # (Auto) Baso # (Auto) Abs Immat Gran (auto) Absolute Neuts (auto) Absolute Nucleated RBC Nucleated RBC % Sodium Potassium Chloride Carbon Dioxide Anion Gap BUN Creatinine Estim Creat Clear Calc Estimated GFR Glucose POC Capillary Glucose 169 H 221 H Calcium Total Bilirubin AST ALT Alkaline Phosphatase Total Protein Albumin Triglycerides Cholesterol LDL Cholesterol Direct HDL Direct Urine Color Straw Urine Appearance Clear Urine pH 7.0 Ur Specific [place] 1.009 Urine Protein 1+ H Urine Glucose (UA) 1+ H Urine Ketones Negative Ur Blood (Man) Negative Urine Nitrate Negative Urine Bilirubin Negative Urine Urobilinogen Negative Leukocyte Esterase Rfl Negative Urine RBC 0-2 Urine WBC 0-3 Urine Bacteria Trace Urine Mucus Rare 04/07/21 04/07/21 04/07/21 05:27 05:28 06:22 WBC 8.0 RBC 3.30 L Hgb 10.0 L Hct 30.8 L MCV 93.3 MCH 30.3 MCHC 32.5 RDW 13.2 Plt Count 182 MPV 9.1 Immature Gran % (Auto) 0.4 Neut % (Auto) 78.7 H Lymph % (Auto) 9.1 L [place] % (Auto) 8.4 Eos % (Auto) 2.6 Baso % (Auto) 0.8 Lymph # (Auto) 0.73 L [place] # (Auto) 0.7 H Eos # (Auto) 0.2 Baso # (Auto) 0.1 Abs Immat Gran (auto) 0.03 Absolute Neuts (auto) 6.3 Absolute Nucleated RBC 0.0 Nucleated RBC % 0.0 Sodium 137 Potassium 4.3 Chloride 100 Carbon Dioxide 35 H Anion Gap 2 L BUN 15 Creatinine 1.00 Estim Creat Clear Calc 68 Estimated GFR > 60 Glucose 205 H POC Capillary Glucose 175 H Calcium 8.1 L Total Bilirubin 0.2 AST 21 ALT 8 Alkaline Phosphatase 55 Total Protein 5.0 L Albumin 2.7 L Triglycerides 66 Cholesterol 51 LDL Cholesterol Direct < 30 HDL Direct 17 Urine Color Urine Appearance Urine pH Ur Specific [place] Urine Protein Urine Glucose (UA)
--- NOTE | 2021-04-07 10:44 | PCSTNOTE ---
Please refer to the Modified Barium Swallow Evaluation in the EMR.
--- NOTE | 2021-04-07 11:45 | PCNFU ---
Nutrition Follow-Up Complete: Unintended weight loss as related to vomiting as evidenced by 10 ibs weight loss reported. Goal: Meet estimated nutritional needs Patient is progressing towards goal. We will continue current goal. Pt current nutrition is DBCC/soft bite sized, level 6 with Mildly Thick liquids, Level 2. Last recorded weight is 74.4 k, no new weight to report. Bowel Motility:No BM to report. Labs Reviewed:Glu 205, Alb 2.7,Hct 30.8, Hgb 10.0 Meds Noted:Lantus, Carafate, Protonix, Zosyn, Reglan, Prinivil Additional Notes: Nutrition follow up. Patient seen today, eating yogurt from breakfast. Oral Intake has been 75-80% of most meals. Orders for 6 small meals daily. Glucerna shakes being providing BID providing an additional 220 kcals and 10 gms protein. MBS today recommending soft and bite sized, Level 6 with Mildly Thick liquids, Level 2. Diet orders have been received. Per MD notes EGD showing undigested food, gastroparesis and esophagitis. Monitoring:Will monitor every 5 days.
[2021-04-07 11:50] LABS: Glucose Point of Care 149 mg/dl (65-105)
--- NOTE | 2021-04-07 12:05 | PM.PNPUL ---
Progress Note: A&P Assessment and Plan (1) Dysphagia: Qualifiers: Dysphagia type: unspecified Qualified Code(s): R13.10 - Dysphagia, unspecified Code(s): R13.10 - Dysphagia, unspecified Status: Acute (2) Pneumonia: Qualifiers: Pneumonia type: due to unspecified organism Laterality: bilateral Lung location: lower lobe of lung Qualified Code(s): J18.9 - Pneumonia, unspecified organism Code(s): J18.9 - Pneumonia, unspecified organism Status: Acute Assessment and Plan: Respiratory status essentially unchanged. Endoscopy findings and video swallow study suggest aspiration as the cause of acute pneumonia. The patient is in no acute distress, and has responded to the antibiotic regimen. Continue with same medications. Consider DVT prophylaxis. Await speech pathology evaluation. Subjective Date/time seen: patient has no new respiratory issues. Has mild cough no sputum production or wheezing. Remaining on ambient air. Review of Systems Review of Systems: All systems reviewed & are unremarkable except as noted in HPI and below (H & P) Exam Narrative: GENERAL APPEARANCE: Well developed, well nourished, alert and cooperative, who appears to be in no acute distress while breathing ambient air SKIN: Inspection of the skin reveals no rashes, ulcerations or petechiae. HEENT: Sclerae anicteric and conjunctivae pink and moist. Extraocular movements were intact and pupils were equal, round. The oral mucosa, hard and soft palate, tongue and posterior pharynx were normal. Edentulous. NECK: Supple. There was no thyroid enlargement, and no tenderness, or masses were felt. CHEST: Normal AP diameter and normal contour without any kyphoscoliosis. LUNGS: Auscultation of the lungs revealed crackles at bases posteriorly, more on R. No wheezing. CARDIAC: There was a regular rate and rhythm without any murmurs, gallops, rubs. ABDOMEN: Soft and nontender with normal bowel sounds. There was no organomegaly. LYMPH NODES: No lymphadenopathy was appreciated in the neck. EXTREMITIES: No cyanosis, clubbing or edema. NEUROLOGIC: Alert and oriented x 3. Normal affect. Objective Data Vital Signs Vital Signs: Vital Signs - 24 hr 04/06/21 12:25 04/06/21 13:25 04/06/21 13:35 Temperature 36.8 C Pulse Rate 63 64 58 L Respiratory Rate 20 24 H 24 H Blood Pressure 121/64 116/70 116/71 Pulse Oximetry 97 100 100 04/06/21 13:45 04/06/21 14:50 04/06/21 20:00 Temperature 36.5 C Pulse Rate 60 55 L 70 Respiratory Rate 22 H 20 16 Blood Pressure 112/69 121/44 L Pulse Oximetry 98 93 96 04/06/21 21:14 04/07/21 06:00 Temperature 36.7 C 36.6 C Pulse Rate 70 66 Respiratory Rate 16 18 Blood Pressure 123/58 L 123/55 L Pulse Oximetry 96 94 Intake/Output Intake/Output: Intake & Output 04/04/21 04/05/21 04/06/21 04/07/21 23:59 23:59 23:59 23:59 Intake Total 1300 2330 1590 860 Output Total 925 2450 400 Balance 1300 1405 -860 460 Meds/Results Medications: Active Medications Generic Name Dose Route Start Last Admin Trade Name Freq PRN Reason Stop Dose Admin Aspirin 81 mg 04/06/21 09:00 04/07/21 09:40 Aspirin 81 Mg Enteric Tablet PO 81 mg DAILY ANJUM Administration Dextrose 12.5 gm 04/05/21 13:07 Dextrose 50% 25 Gm/50 Ml Syringe IV PUSH PRN PRN Hypoglycemia Protocol Glucagon 1 mg 04/05/21 13:07 Glucagon For Inj 1 Mg Vial IM PRN PRN Hypoglycemia Protocol Glucose 15 gm 04/05/21 13:07 Glucose Oral Gel 15 Gm Of Glucse In 37.5 Gm Tube PO PRN PRN Hypoglycemia Protocol Dextrose 1,000 mls @ 100 mls/hr 04/05/21 13:07 Dextrose 5% 1,000 Ml IVPB PRN PRN Hypoglycemia Protocol Piperacillin/Tazobactam/Dextrose 3.375 gm in 50 mls @ 100 mls/hr 04/06/21 10:30 04/07/21 06:02 Zosyn 3.375 Gm/D5w 50ml Pm IVPB Infused Q6HR ANJUM Infusion Insulin Aspart 4 - 8 units 04/06/21 12:00 04/07/21 07:45 In
[2021-04-07 14:00] VITALS: BP 105/63; PULSE 73; RESP 16; TEMP 36.9; O2SAT 85
[2021-04-07 16:30] LABS: Glucose Point of Care 217 mg/dl (65-105)
--- NOTE | 2021-04-07 16:51 | WPDGIPROGNO ---
Progress Note: A&P Assessment and Plan (1) Nausea and vomiting: Code(s): R11.2 - Nausea with vomiting, unspecified Status: Acute Assessment and Plan: most likely from retained food in stomach c/w gastroparesis and started on iv reglan also had esophagitis, now on protonix and carafate (2) Gastroparesis due to DM: Code(s): E11.43 - Type 2 diabetes mellitus with diabetic autonomic (poly)neuropathy; K31.84 - Gastroparesis Status: Acute Assessment and Plan: most likely diagnosis eat small amount, aspiration precaution, better DM control, reglan (3) Esophagitis: Code(s): K20.90 - Esophagitis, unspecified without bleeding Status: Acute Assessment and Plan: on ppi, pending bx (4) Atypical pneumonia: Code(s): J18.9 - Pneumonia, unspecified organism Status: Acute Assessment and Plan: by pulnonary (5) SIRS (systemic inflammatory response syndrome): Code(s): R65.10 - Systemic inflammatory response syndrome (SIRS) of non-infectious origin without acute organ dysfunction Status: Acute (6) Type 1 diabetes mellitus with hyperglycemia: Code(s): E10.65 - Type 1 diabetes mellitus with hyperglycemia Status: Chronic Subjective Date/time seen: 04/07/21 16:51 Interval history: no new issues, egd yesterday with large amount of retained food and esophagitis Review of Systems Review of Systems: All systems reviewed & are unremarkable except as noted in HPI and below Exam Const: General: comfortable and no acute distress Other: frail HENMT: General nose exam: Normal nares present Eyes: Sclera: sclerae normal Neck: Neck: supple Resp: Auscultation: rales and diminished lung sounds Cardio: Rate: regular rate GI: Inspection: non-distended GI Palp: Yes Soft to palpation and No Tenderness to palpation present (GI) Auscultation: normal bowel sounds Skin: General skin exam: normal color Neuro: Speech: normal speech Extrem: General: normal to inspection Psych: Mental Status: mental status grossly normal Objective Data Vital Signs Vital Signs: Vital Signs - 24 hr 04/06/21 20:00 04/06/21 21:14 04/07/21 06:00 Temperature 98.1 F 97.9 F Pulse Rate 70 70 66 Respiratory Rate 16 16 18 Blood Pressure 123/58 L 123/55 L Pulse Oximetry 96 96 94 04/07/21 14:00 Temperature 98.5 F Pulse Rate 73 Respiratory Rate 16 Blood Pressure 105/63 Pulse Oximetry 85 L Intake/Output Intake/Output: Intake & Output 04/04/21 04/05/21 04/06/21 04/07/21 23:59 23:59 23:59 23:59 Intake Total 1300 2330 1590 1030 Output Total 925 2450 400 Balance 1300 1405 -860 630 Meds/Results Medications: Active Medications Generic Name Dose Route Start Last Admin Trade Name Freq PRN Reason Stop Dose Admin Aspirin 81 mg 04/06/21 09:00 04/07/21 09:40 Aspirin 81 Mg Enteric Tablet PO 81 mg DAILY ANJUM Administration Dextrose 12.5 gm 04/05/21 13:07 Dextrose 50% 25 Gm/50 Ml Syringe IV PUSH PRN PRN Hypoglycemia Protocol Glucagon 1 mg 04/05/21 13:07 Glucagon For Inj 1 Mg Vial IM PRN PRN Hypoglycemia Protocol Glucose 15 gm 04/05/21 13:07 Glucose Oral Gel 15 Gm Of Glucse In 37.5 Gm Tube PO PRN PRN Hypoglycemia Protocol Dextrose 1,000 mls @ 100 mls/hr 04/05/21 13:07 Dextrose 5% 1,000 Ml IVPB PRN PRN Hypoglycemia Protocol Piperacillin/Tazobactam/Dextrose 3.375 gm in 50 mls @ 100 mls/hr 04/06/21 10:30 04/07/21 12:45 Zosyn 3.375 Gm/D5w 50ml Pm IVPB Infused Q6HR ANJUM Infusion Insulin Aspart 4 - 8 units 04/06/21 12:00 04/07/21 12:14 Insulin Aspart (*Bkc) 100 Units/Ml SUB-Q Not Given [facility] Protocol Insulin Glargine 18 units 04/06/21 21:00 04/06/21 20:32 Insulin Glargine (*Bkc) 100 Units/Ml SUB-Q 18 units HS ANJUM Administration Lisinopril 2.5 mg 04/06/21 09:00 04/07/21 09:40 Lisinopril 2.5 Mg Tablet PO 2.5
[2021-04-07] MEDS: INSULIN ASPART (*BKC) 100 UNITS/ML SUB-Q (17:07)
[2021-04-07 20:26] VITALS: PULSE 73; RESP 16; O2SAT 94
[2021-04-07] MEDS: PRAVASTATIN SODIUM 20 MG TABLET 80 MG PO (20:40)
[2021-04-07] MEDS: INSULIN GLARGINE (*BKC) 100 UNITS/ML 18 UNITS SUB-Q (20:44)
[2021-04-07 21:02] LABS: Glucose Point of Care 199 mg/dl (65-105)
[2021-04-07 21:11] VITALS: BP 144/74; PULSE 58; RESP 18; TEMP 36; O2SAT 97
[2021-04-07] MEDS: ONDANSETRON INJ 4 MG/2 ML VIAL IV PUSH (21:26)
[2021-04-08 03:28] VITALS: BP 100/48; PULSE 59; RESP 20; TEMP 36.5; O2SAT 94
[2021-04-08] MEDS: METOCLOPRAMIDE HCL INJ 10 MG/2 ML VIAL 5 MG IV PUSH ×2 (05:32→12:09)
[2021-04-08 05:37] LABS: Basophils Absolute Auto 0.1 K/mm3 (0.0-0.1); Basophils Percent Auto 0.7 % (0.2-1.2); Eosinophils Absolute Auto 0.3 K/mm3 (0-0.3); Eosinophils Percent Auto 3.7 % (0-4.4); Hematocrit 29.2 % (42.0-52.0); Hemoglobin 9.6 g/dL (14.0-18.0); Immature Granulocyte Absolute 0.02 K/mm3 (0.00-0.031); Immature Granulocyte Percent A 0.3 % (0-0.5); Lymphocytes Absolute Auto 1.06 K/mm3 (0.9-3.2); Lymphocytes Percent Auto 15.6 % (18.3-44.2); Mean Corpuscular HGB Conc 32.9 g/dl (32-36); Mean Corpuscular Hemoglobin 30.7 pg (26-34); Mean Corpuscular Volume 93.3 fl (80-100); Mean Platelet Volume 9.1 fl (7.4-10.4); Monocytes Absolute Auto 0.7 K/mm3 (0.1-0.6); Monocytes Percent Auto 10.5 % (2.6-8.5); Neutrophils Absolute Auto 4.7 K/mm3 (1.3-6.7); Neutrophils Percent Auto 69.2 % (45.5-73.1); Platelet Count Result 185 k/mm3 (150-375); Red Blood Count 3.13 M/mm3 (4.6-6.20); Red Cell Distribution Width 13.2 % (11.5-14.5); White Blood Count 6.8 K/mm3 (4.5-10.0)
[2021-04-08] MEDS: SUCRALFATE SUSP 100 MG/ML 10 ML UDC 1000 MG PO ×4 (05:38→20:27)
[2021-04-08 05:49] LABS: Alanine Aminotransferase 8 U/L (4-50); Albumin Level 2.7 g/dL (3.5-5.1); Alkaline Phosphatase 51 U/L (38-126); Anion Gap 3 mmol/L (8-16); Aspartate Amino Transferase 14 U/L (17-59); Bilirubin,Total < 0.1 mg/dL (0.2-1.3); Blood Urea Nitrogen 19 mg/dL (9-20); Calcium 8.1 mg/dL (8.4-10.2); Carbon Dioxide 35 mmol/L (22-30); Chloride 100 mmol/L (98-107); Estimated CRCL calculation 68 ml/min; Estimated Glomerular Filt Rate > 60; Glucose 91 mg/dL (65-110); Magnesium 2.1 mg/dL (1.6-2.3); Potassium 3.7 mmol/L (3.4-5.0); Sodium 138 mmol/L (137-145)
[2021-04-08 07:32] LABS: Glucose Point of Care 81 mg/dl (65-105)
[2021-04-08 09:09] VITALS: BP 110/59; PULSE 58; O2SAT 94
[2021-04-08] MEDS: PANTOPRAZOLE 40 MG TABLET PO ×2 (09:09→20:27)
[2021-04-08] MEDS: lisinopriL 2.5 MG TABLET PO (09:10)
[2021-04-08] MEDS: ASPIRIN 81 MG ENTERIC TABLET PO (09:10)
--- NOTE | 2021-04-08 10:38 | PM.PNPUL ---
Progress Note: A&P Assessment and Plan (1) Dysphagia: Qualifiers: Dysphagia type: unspecified Qualified Code(s): R13.10 - Dysphagia, unspecified Code(s): R13.10 - Dysphagia, unspecified Status: Acute Assessment and Plan: workup in progress regarding type of dysphagia. (2) Pneumonia: Qualifiers: Pneumonia type: due to unspecified organism Laterality: bilateral Lung location: lower lobe of lung Qualified Code(s): J18.9 - Pneumonia, unspecified organism Code(s): J18.9 - Pneumonia, unspecified organism Status: Acute Assessment and Plan: Respiratory status essentially unchanged. Endoscopy findings and video swallow study suggest aspiration as the cause of acute pneumonia. The patient is in no acute distress, and has responded to the antibiotic regimen. Continue with same medications. Consider DVT prophylaxis. Await speech pathology evaluation. Subjective Date/time seen: 04/08/21 10:38 patient without any new respiratory symptoms. Afebrile, remaining on ambient air. Review of Systems Review of Systems: All systems reviewed & are unremarkable except as noted in HPI and below (H & P) Exam Narrative: GENERAL APPEARANCE: Well developed, poorly nourished, alert and cooperative, who appears to be in no acute distress while breathing ambient air SKIN: Inspection of the skin reveals no rashes, ulcerations or petechiae. HEENT: Sclerae anicteric and conjunctivae pink and moist. Extraocular movements were intact and pupils were equal, round. The oral mucosa, hard and soft palate, tongue and posterior pharynx were normal. Edentulous. NECK: Supple. There was no thyroid enlargement, and no tenderness, or masses were felt. CHEST: Normal AP diameter and normal contour without any kyphoscoliosis. LUNGS: Auscultation of the lungs revealed crackles at bases posteriorly, more on R. No wheezing. CARDIAC: There was a regular rate and rhythm without any murmurs, gallops, rubs. ABDOMEN: Soft and nontender with normal bowel sounds. There was no organomegaly. LYMPH NODES: No lymphadenopathy was appreciated in the neck. EXTREMITIES: No cyanosis, clubbing or edema. NEUROLOGIC: Alert and oriented x 3. Normal affect. Objective Data Vital Signs Vital Signs: Vital Signs - 24 hr 04/07/21 14:00 04/07/21 20:26 04/07/21 21:11 Temperature 36.9 C 36.0 C L Pulse Rate 73 73 58 L Respiratory Rate 16 16 18 Blood Pressure 105/63 144/74 H Pulse Oximetry 85 L 94 97 04/08/21 03:28 04/08/21 09:09 Temperature 36.5 C Pulse Rate 59 L 58 L Respiratory Rate 20 Blood Pressure 100/48 L 110/59 L Pulse Oximetry 94 94 Intake/Output Intake/Output: Intake & Output 04/05/21 04/06/21 04/07/21 04/08/21 23:59 23:59 23:59 23:59 Intake Total 2330 1590 1540 480 Output Total 925 2450 400 500 Balance 1405 -860 1140 -20 Meds/Results Medications: Active Medications Generic Name Dose Route Start Last Admin Trade Name Freq PRN Reason Stop Dose Admin Aspirin 81 mg 04/06/21 09:00 04/08/21 09:10 Aspirin 81 Mg Enteric Tablet PO 81 mg DAILY ANJUM Administration Dextrose 12.5 gm 04/05/21 13:07 Dextrose 50% 25 Gm/50 Ml Syringe IV PUSH PRN PRN Hypoglycemia Protocol Glucagon 1 mg 04/05/21 13:07 Glucagon For Inj 1 Mg Vial IM PRN PRN Hypoglycemia Protocol Glucose 15 gm 04/05/21 13:07 Glucose Oral Gel 15 Gm Of Glucse In 37.5 Gm Tube PO PRN PRN Hypoglycemia Protocol Dextrose 1,000 mls @ 100 mls/hr 04/05/21 13:07 Dextrose 5% 1,000 Ml IVPB PRN PRN Hypoglycemia Protocol Piperacillin/Tazobactam/Dextrose 3.375 gm in 50 mls @ 100 mls/hr 04/06/21 10:30 04/08/21 05:32 Zosyn 3.375 Gm/D5w 50ml Pm IVPB 100 mls/hr Q6HR ANJUM Administration Insulin Aspart 4 - 8 units 04/06/21 12:00 04/08/21 07:49 Insulin Aspart (*Bkc) 100 Units/Ml SUB-Q Not Given TIDWM ANJUM Protocol Insulin Glargine 18 units
--- NOTE | 2021-04-08 11:00 | PM.IMPN ---
Progress Note: A&P Assessment and Plan (1) Atypical pneumonia: Code(s): J18.9 - Pneumonia, unspecified organism Status: Acute Assessment and Plan: Patient just discharged on 04/01/2021 for pneumonia four sputum cultures were collected last admission only 1 grew yeast blood cultures NGTD sputum culture yeast and light growth of staph. aureus ID has been consulted pulmonary has been consulted high-resolution CT of the chest showed pneumonia involving the right lung and left lower lobe worse since 03/25/2021, trace right and small left pleural effusion new since 03/25/2021 chest x-ray showed worsened airspace and interstitial opacities in the mid and lower lung zones consistent with pneumonia (04/04/21) Repeat chest xray: Mildly increased bilateral pulmonary infiltrates since 04/04/2021 Antibiotics changed to IV Zosyn q6hr Covid test negative Speech on board for swallow study/barium swallow showed some aspiration, but patient is refusing thickened liquids GI consulted thank you EGD showed undigested food, gastroparesis and esophagitis (2) Weight loss: Code(s): R63.4 - Abnormal weight loss Status: Acute Assessment and Plan: could be from chronic disease could be from patient not being able to hold food down previous visits showed GI was consulted and all indicate patient in need of a colonoscopy an EGD Dr. Pimentel consulted thank you for your recommendations dietitian consult- thank you for all your help speech therapy consult to evaluate swallowing function Barium swallow: Found aspiration with thin liquids, food did not show to have problems patient does have a history of a G-tube Daily weights (3) Type 1 diabetes mellitus with hyperglycemia: Code(s): E10.65 - Type 1 diabetes mellitus with hyperglycemia Status: Chronic Assessment and Plan: glucose this morning on labs was 91 continue home insulins lantus 15 units HS, sliding scale, increase to high sliding scale and increase lantus to 18 units a.c. and HS Accu-Cheks hypoglycemia protocol adjust medications as needed trend glucose A1c from 03/26/2021 was 7.5 (4) Essential hypertension: Code(s): I10 - Essential (primary) hypertension Status: Acute Assessment and Plan: blood pressure 110/59 continue lisinopril 2.5 mg p.o. daily trend blood pressures adjust medications as needed (5) Nausea and vomiting: Code(s): R11.2 - Nausea with vomiting, unspecified Status: Acute Assessment and Plan: patient reports intermittent / chronic nausea vomiting especially with eating started patient on Protonix PO 40 mg b.i.d. speech therapy to evaluate to ensure patient swallowing correctly GI consulted thank you for your recommendations CT of the chest abdomen and pelvis showed moderate colonic stool and sigmoid diverticulosis from 03/25/21 EGD showed gastroparesis with esophagitis Diet modification to include smaller more frequent meals (6) Hyperlipidemia: Code(s): E78.5 - Hyperlipidemia, unspecified Status: Acute Assessment and Plan: continue home pravastatin 80 mg p.o. 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
--- NOTE | 2021-04-08 11:00 | P.PNIM_ITS ---
Progress Note: A&P Assessment and Plan (1) Atypical pneumonia: Code(s): J18.9 - Pneumonia, unspecified organism Status: Acute Assessment and Plan: * Patient just discharged on 04/01/2021 for pneumonia * four sputum cultures were collected last admission only 1 grew yeast * blood cultures NGTD * sputum culture yeast and light growth of staph. aureus * ID has been consulted * pulmonary has been consulted * high-resolution CT of the chest showed pneumonia involving the right lung and left lower lobe worse since 03/25/2021, trace right and small left pleural effusion new since 03/25/2021 * chest x-ray showed worsened airspace and interstitial opacities in the mid and lower lung zones consistent with pneumonia (04/04/21) * Repeat chest xray: Mildly increased bilateral pulmonary infiltrates since 04/04/2021 * Antibiotics changed to IV Zosyn q6hr * Covid test negative * Speech on board for swallow study/barium swallow showed some aspiration, but patient is refusing thickened liquids * GI consulted thank you * EGD showed undigested food, gastroparesis and esophagitis (2) Weight loss: Code(s): R63.4 - Abnormal weight loss Status: Acute Assessment and Plan: * could be from chronic disease * could be from patient not being able to hold food down * previous visits showed GI was consulted and all indicate patient in need of a colonoscopy an EGD * Dr. Pimentel consulted thank you for your recommendations * dietitian consult- thank you for all your help * speech therapy consult to evaluate swallowing function * Barium swallow: Found aspiration with thin liquids, food did not show to have problems * patient does have a history of a G-tube * Daily weights (3) Type 1 diabetes mellitus with hyperglycemia: Code(s): E10.65 - Type 1 diabetes mellitus with hyperglycemia Status: Chronic Assessment and Plan: * glucose this morning on labs was 91 * continue home insulins * lantus 15 units HS, sliding scale, increase to high sliding scale and increase lantus to 18 units * a.c. and HS Accu-Cheks * hypoglycemia protocol * adjust medications as needed * trend glucose * A1c from 03/26/2021 was 7.5 (4) Essential hypertension: Code(s): I10 - Essential (primary) hypertension Status: Acute Assessment and Plan: * blood pressure 110/59 * continue lisinopril 2.5 mg p.o. daily * trend blood pressures * adjust medications as needed (5) Nausea and vomiting: Code(s): R11.2 - Nausea with vomiting, unspecified Status: Acute Assessment and Plan: * patient reports intermittent / chronic nausea vomiting especially with eating * started patient on Protonix PO 40 mg b.i.d. * speech therapy to evaluate to ensure patient swallowing correctly * GI consulted thank you for your recommendations * CT of the chest abdomen and pelvis showed moderate colonic stool and sigmoid diverticulosis from 03/25/21 * EGD showed gastroparesis with esophagitis * Diet modification to include smaller more frequent meals (6) Hyperlipidemia: Code(s): E78.5 - Hyperlipidemia, unspecified Status: Acute Assessment and Plan: * continue home pravastatin 80 mg p.o. at bedtime * Lipid panel: Cholesterol 51, triglycerides 66, LDL less than 30, HDL 17 (7) Dysphagia: Qualifiers: Dysphag
[2021-04-08 11:41] LABS: Glucose Point of Care 95 mg/dl (65-105)
--- NOTE | 2021-04-08 13:58 | WPDGIPROGNO ---
Progress Note: A&P Assessment and Plan (1) Nausea and vomiting: Code(s): R11.2 - Nausea with vomiting, unspecified Status: Acute Assessment and Plan: most likely from retained food in stomach c/w gastroparesis and started on iv reglan- will transition to oral also had esophagitis, now on protonix and carafate tolerating diet and feeling well (2) Gastroparesis due to DM: Code(s): E11.43 - Type 2 diabetes mellitus with diabetic autonomic (poly)neuropathy; K31.84 - Gastroparesis Status: Acute Assessment and Plan: most likely diagnosis eat small amount, aspiration precaution, better DM control, and oral reglan (3) Esophagitis: Code(s): K20.90 - Esophagitis, unspecified without bleeding Status: Acute Assessment and Plan: on ppi, pending bx (4) Atypical pneumonia: Code(s): J18.9 - Pneumonia, unspecified organism Status: Acute Assessment and Plan: by pulnonary and improving (5) SIRS (systemic inflammatory response syndrome): Code(s): R65.10 - Systemic inflammatory response syndrome (SIRS) of non-infectious origin without acute organ dysfunction Status: Acute Assessment and Plan: resolved (6) Type 1 diabetes mellitus with hyperglycemia: Code(s): E10.65 - Type 1 diabetes mellitus with hyperglycemia Status: Chronic Subjective Date/time seen: 04/08/21 13:58 Interval history: he does not report more vomiting and has been tolerating diet Review of Systems Review of Systems: All systems reviewed & are unremarkable except as noted in HPI and below Exam Const: General: comfortable and no acute distress Other: frail HENMT: General nose exam: Normal nares present Eyes: Sclera: sclerae normal Neck: Neck: supple Resp: Effort & Inspection: normal respiratory effort Auscultation: rales Cardio: Rate: regular rate GI: Inspection: non-distended GI Palp: Yes Soft to palpation and No Tenderness to palpation present (GI) Auscultation: normal bowel sounds Skin: General skin exam: normal color Neuro: Speech: normal speech Extrem: General: normal to inspection Psych: Mental Status: mental status grossly normal Objective Data Vital Signs Vital Signs: Vital Signs - 24 hr 04/07/21 14:00 04/07/21 20:26 04/07/21 21:11 Temperature 98.5 F 96.8 F L Pulse Rate 73 73 58 L Respiratory Rate 16 16 18 Blood Pressure 105/63 144/74 H Pulse Oximetry 85 L 94 97 04/08/21 03:28 04/08/21 09:09 Temperature 97.7 F Pulse Rate 59 L 58 L Respiratory Rate 20 Blood Pressure 100/48 L 110/59 L Pulse Oximetry 94 94 Intake/Output Intake/Output: Intake & Output 04/05/21 04/06/21 04/07/21 04/08/21 23:59 23:59 23:59 23:59 Intake Total 2330 1590 1540 530 Output Total 925 2450 400 500 Balance 1405 -860 1140 30 Meds/Results Medications: Active Medications Generic Name Dose Route Start Last Admin Trade Name Freq PRN Reason Stop Dose Admin Aspirin 81 mg 04/06/21 09:00 04/08/21 09:10 Aspirin 81 Mg Enteric Tablet PO 81 mg DAILY ANJUM Administration Dextrose 12.5 gm 04/05/21 13:07 Dextrose 50% 25 Gm/50 Ml Syringe IV PUSH PRN PRN Hypoglycemia Protocol Glucagon 1 mg 04/05/21 13:07 Glucagon For Inj 1 Mg Vial IM PRN PRN Hypoglycemia Protocol Glucose 15 gm 04/05/21 13:07 Glucose Oral Gel 15 Gm Of Glucse In 37.5 Gm Tube PO PRN PRN Hypoglycemia Protocol Dextrose 1,000 mls @ 100 mls/hr 04/05/21 13:07 Dextrose 5% 1,000 Ml IVPB PRN PRN Hypoglycemia Protocol Piperacillin/Tazobactam/Dextrose 3.375 gm in 50 mls @ 100 mls/hr 04/06/21 10:30 04/08/21 12:08 Zosyn 3.375 Gm/D5w 50ml Pm IVPB 100 mls/hr Q6HR ANJUM Administration Insulin Aspart 4 - 8 units 04/06/21 12:00 04/08/21 11:50 Insulin Aspart (*Bkc) 100 Units/Ml SUB-Q Not Given TIDWM [facility] Protocol Insulin Glargine 18 units 04/06/21 21:00 04/07/21 20:44
[2021-04-08 14:00] VITALS: BP 134/68; PULSE 69; RESP 16; TEMP 36.8; O2SAT 98
[2021-04-08] MEDS: METOCLOPRAMIDE HCL 5 MG TABLET PO ×2 (16:33→20:27)
[2021-04-08 16:43] LABS: Glucose Point of Care 95 mg/dl (65-105)
[2021-04-08] MEDS: INSULIN GLARGINE (*BKC) 100 UNITS/ML 18 UNITS SUB-Q (20:27)
[2021-04-08] MEDS: PRAVASTATIN SODIUM 20 MG TABLET 80 MG PO (20:27)
[2021-04-08 20:41] VITALS: BP 138/74; PULSE 66; RESP 18; TEMP 37.1; O2SAT 95
[2021-04-08 21:55] LABS: Glucose Point of Care 143 mg/dl (65-105)
[2021-04-09 04:42] VITALS: BP 124/64; PULSE 60; RESP 18; TEMP 37.4; O2SAT 96
[2021-04-09 05:39] LABS: Basophils Absolute Auto 0.1 K/mm3 (0.0-0.1); Basophils Percent Auto 0.9 % (0.2-1.2); Eosinophils Absolute Auto 0.3 K/mm3 (0-0.3); Eosinophils Percent Auto 4.6 % (0-4.4); Hematocrit 30.5 % (42.0-52.0); Immature Granulocyte Absolute 0.02 K/mm3 (0.00-0.031); Immature Granulocyte Percent A 0.4 % (0-0.5); Lymphocytes Absolute Auto 0.83 K/mm3 (0.9-3.2); Lymphocytes Percent Auto 15.3 % (18.3-44.2); Mean Corpuscular HGB Conc 32.8 g/dl (32-36); Mean Corpuscular Hemoglobin 30.3 pg (26-34); Mean Corpuscular Volume 92.4 fl (80-100); Monocytes Absolute Auto 0.7 K/mm3 (0.1-0.6); Monocytes Percent Auto 12.4 % (2.6-8.5); Neutrophils Absolute Auto 3.6 K/mm3 (1.3-6.7); Neutrophils Percent Auto 66.4 % (45.5-73.1); Platelet Count Result 224 k/mm3 (150-375); Red Cell Distribution Width 13.1 % (11.5-14.5); White Blood Count 5.4 K/mm3 (4.5-10.0)
[2021-04-09] MEDS: METOCLOPRAMIDE HCL 5 MG TABLET PO ×4 (05:51→20:12)
[2021-04-09] MEDS: SUCRALFATE SUSP 100 MG/ML 10 ML UDC 1000 MG PO ×4 (05:51→20:12)
[2021-04-09 05:59] LABS: Alanine Aminotransferase 8 U/L (4-50); Albumin Level 2.8 g/dL (3.5-5.1); Alkaline Phosphatase 57 U/L (38-126); Anion Gap 3 mmol/L (8-16); Aspartate Amino Transferase 18 U/L (17-59); Bilirubin,Total 0.1 mg/dL (0.2-1.3); Blood Urea Nitrogen 13 mg/dL (9-20); Calcium 8.1 mg/dL (8.4-10.2); Carbon Dioxide 35 mmol/L (22-30); Chloride 102 mmol/L (98-107); Estimated CRCL calculation 75 ml/min; Estimated Glomerular Filt Rate > 60; Glucose 85 mg/dL (65-110); Potassium 3.8 mmol/L (3.4-5.0); Sodium 140 mmol/L (137-145)
[2021-04-09 08:00] LABS: Glucose Point of Care 70 mg/dl (65-105)
[2021-04-09] MEDS: lisinopriL 2.5 MG TABLET PO (08:52)
[2021-04-09] MEDS: ASPIRIN 81 MG ENTERIC TABLET PO (08:52)
[2021-04-09] MEDS: PANTOPRAZOLE 40 MG TABLET PO ×2 (08:52→20:12)
[2021-04-09 11:47] LABS: Glucose Point of Care 115 mg/dl (65-105)
--- NOTE | 2021-04-09 14:54 | PM.PNPUL ---
Progress Note: A&P Assessment and Plan (1) Pneumonia: Qualifiers: Laterality: bilateral Lung location: lower lobe of lung Pneumonia type: due to unspecified organism Qualified Code(s): J18.9 - Pneumonia, unspecified organism Code(s): J18.9 - Pneumonia, unspecified organism Status: Acute Assessment and Plan: Bilateral pneumonia, unknown organism Respiratory status essentially unchanged. Endoscopy findings and video swallow study suggest aspiration as the cause of acute pneumonia. The patient is in no acute distress, and has responded to the antibiotic regimen. He is now on Zosyn since Apr 06. He is being followed by ID. (2) Dysphagia: Qualifiers: Dysphagia type: unspecified Qualified Code(s): R13.10 - Dysphagia, unspecified Code(s): R13.10 - Dysphagia, unspecified Status: Acute Assessment and Plan: He had a workup for dysphagia, however will not agree to consume the thickened liquids. This may be an ongoing problem. Subjective Date/time seen: 04/09/21 14:54 This 65 year old man is seen in f/u for dysphagia and pneumonia. WBC normal 5, H/H stable, 10/30.5. He is on room air, has scant amounts of clear sputum. He is feeling better. He was in the hospital for the same problem, discharged April 01, sputum cultures showed yeast and light growth of staph. Last CXR Apr 07 showed mild increased in infiltrates. He is being seen by Speech Therapy. Review of Systems Review of Systems: No specific complaints. He feels better, has been up and walking short distances. No fever, chest pain or shortness of breath. Exam Narrative: GEN: Alert, oriented, not in distress. HEENT: pupils are equal, EOMI, symmetrical face NECK: Trachea is midline CHEST: Equal air entry, symmetric excursion, decreased breath sounds in the bases with crackles in the right base posteriorly and in the lower anterior base. CV: Regular S1S2 no m/g/r ABD : (+) bowel sounds Extremities : no clubbing, cyanosis, edema PSYCH: normal thought and speech Objective Data Vital Signs Vital Signs: Vital Signs - 24 hr 04/08/21 20:41 04/09/21 04:42 Temperature 37.1 C 37.4 C Pulse Rate 66 60 Respiratory Rate 18 18 Blood Pressure 138/74 124/64 Pulse Oximetry 95 96 Intake/Output Intake/Output: Intake & Output 04/06/21 04/07/21 04/08/21 04/09/21 23:59 23:59 23:59 23:59 Intake Total 1590 1540 870 540 Output Total 2450 400 950 300 Balance -860 1140 -80 240 Meds/Results Medications: Active Medications Generic Name Dose Route Start Last Admin Trade Name Freq PRN Reason Stop Dose Admin Aspirin 81 mg 04/06/21 09:00 04/09/21 08:52 Aspirin 81 Mg Enteric Tablet PO 81 mg DAILY ANJUM Administration Dextrose 12.5 gm 04/05/21 13:07 Dextrose 50% 25 Gm/50 Ml Syringe IV PUSH PRN PRN Hypoglycemia Protocol Glucagon 1 mg 04/05/21 13:07 Glucagon For Inj 1 Mg Vial IM PRN PRN Hypoglycemia Protocol Glucose 15 gm 04/05/21 13:07 Glucose Oral Gel 15 Gm Of Glucse In 37.5 Gm Tube PO PRN PRN Hypoglycemia Protocol Dextrose 1,000 mls @ 100 mls/hr 04/05/21 13:07 Dextrose 5% 1,000 Ml IVPB PRN PRN Hypoglycemia Protocol Piperacillin/Tazobactam/Dextrose 3.375 gm in 50 mls @ 100 mls/hr 04/06/21 10:30 04/09/21 12:43 Zosyn 3.375 Gm/D5w 50ml Pm IVPB Infused Q6HR ANJUM Infusion Insulin Aspart 4 - 8 units 04/06/21 12:00 04/09/21 11:36 Insulin Aspart (*Bkc) 100 Units/Ml SUB-Q Not Given TIDWM [facility] Protocol Insulin Glargine 18 units 04/06/21 21:00 04/08/21 20:27 Insulin Glargine (*Bkc) 100 Units/Ml SUB-Q 18 units HS ANJUM Administration Lisinopril 2.5 mg 04/06/21 09:00 04/09/21 08:52 Lisinopril 2.5 Mg Tablet PO 2.5 mg DAILY ANJUM Administration Me
--- NOTE | 2021-04-09 15:47 | P.PNIM_ITS ---
Progress Note: A&P Assessment and Plan (1) Atypical pneumonia: Code(s): J18.9 - Pneumonia, unspecified organism Status: Acute Assessment and Plan: * Patient just discharged on 04/01/2021 for pneumonia * four sputum cultures were collected last admission only 1 grew yeast * blood cultures NGTD * sputum culture yeast and light growth of staph. aureus * ID has been consulted * pulmonary has been consulted, and signed off as the patient is doing well * high-resolution CT of the chest showed pneumonia involving the right lung and left lower lobe worse since 03/25/2021, trace right and small left pleural e ffusion new since 03/25/2021 * chest x-ray showed worsened airspace and interstitial opacities in the mid and lower lung zones consistent with pneumonia (04/04/21) * Repeat chest xray: Mildly increased bilateral pulmonary infiltrates since 04/04/2021 * Antibiotics changed to IV Zosyn q6hr Day 4 * Covid test negative * Speech on board for swallow study/barium swallow showed some aspiration, but patient is refusing thickened liquids * GI consulted thank you * EGD showed undigested food, gastroparesis and esophagitis (2) Weight loss: Code(s): R63.4 - Abnormal weight loss Status: Acute Assessment and Plan: * could be from chronic disease * could be from patient not being able to hold food down * previous visits showed GI was consulted and all indicate patient in need of a colonoscopy an EGD * Dr. Pimentel consulted thank you for your recommendations * dietitian consult- thank you for all your help * speech therapy consult to evaluate swallowing function * Barium swallow: Found aspiration with thin liquids, food did not show to have problems * patient does have a history of a G-tube * Daily weights (3) Type 1 diabetes mellitus with hyperglycemia: Code(s): E10.65 - Type 1 diabetes mellitus with hyperglycemia Status: Chronic Assessment and Plan: * glucose this morning on labs was 85 * continue home insulins * lantus 15 units HS, sliding scale, increase to high sliding scale and increase lantus to 18 units * a.c. and HS Accu-Cheks * hypoglycemia protocol * adjust medications as needed * trend glucose * A1c from 03/26/2021 was 7.5 (4) Essential hypertension: Code(s): I10 - Essential (primary) hypertension Status: Acute Assessment and Plan: * blood pressure 124/64 * continue lisinopril 2.5 mg p.o. daily * trend blood pressures * adjust medications as needed (5) Nausea and vomiting: Code(s): R11.2 - Nausea with vomiting, unspecified Status: Acute Assessment and Plan: * patient reports intermittent / chronic nausea vomiting especially with eating * started patient on Protonix PO 40 mg b.i.d. * speech therapy to evaluate to ensure patient swallowing correctly * GI consulted thank you for your recommendations * CT of the chest abdomen and pelvis showed moderate colonic stool and sigmoid diverticulosis from 03/25/21 * EGD showed gastroparesis with esophagitis * Diet modification to include smaller more frequent meals (6) Hyperlipidemia: Code(s): E78.5 - Hyperlipidemia, unspecified Status: Acute Assessment and Plan: * continue home pravastatin 80 mg p.o. at bedtime * Lipid panel: Cholesterol 51, triglycerides 66, LDL less than 30, HDL 17 (7) Dysp
--- NOTE | 2021-04-09 15:47 | PM.IMPN ---
Progress Note: A&P Assessment and Plan (1) Atypical pneumonia: Code(s): J18.9 - Pneumonia, unspecified organism Status: Acute Assessment and Plan: Patient just discharged on 04/01/2021 for pneumonia four sputum cultures were collected last admission only 1 grew yeast blood cultures NGTD sputum culture yeast and light growth of staph. aureus ID has been consulted pulmonary has been consulted, and signed off as the patient is doing well high-resolution CT of the chest showed pneumonia involving the right lung and left lower lobe worse since 03/25/2021, trace right and small left pleural effusion new since 03/25/2021 chest x-ray showed worsened airspace and interstitial opacities in the mid and lower lung zones consistent with pneumonia (04/04/21) Repeat chest xray: Mildly increased bilateral pulmonary infiltrates since 04/04/2021 Antibiotics changed to IV Zosyn q6hr Day 4 Covid test negative Speech on board for swallow study/barium swallow showed some aspiration, but patient is refusing thickened liquids GI consulted thank you EGD showed undigested food, gastroparesis and esophagitis (2) Weight loss: Code(s): R63.4 - Abnormal weight loss Status: Acute Assessment and Plan: could be from chronic disease could be from patient not being able to hold food down previous visits showed GI was consulted and all indicate patient in need of a colonoscopy an EGD Dr. Pimentel consulted thank you for your recommendations dietitian consult- thank you for all your help speech therapy consult to evaluate swallowing function Barium swallow: Found aspiration with thin liquids, food did not show to have problems patient does have a history of a G-tube Daily weights (3) Type 1 diabetes mellitus with hyperglycemia: Code(s): E10.65 - Type 1 diabetes mellitus with hyperglycemia Status: Chronic Assessment and Plan: glucose this morning on labs was 85 continue home insulins lantus 15 units HS, sliding scale, increase to high sliding scale and increase lantus to 18 units a.c. and HS Accu-Cheks hypoglycemia protocol adjust medications as needed trend glucose A1c from 03/26/2021 was 7.5 (4) Essential hypertension: Code(s): I10 - Essential (primary) hypertension Status: Acute Assessment and Plan: blood pressure 124/64 continue lisinopril 2.5 mg p.o. daily trend blood pressures adjust medications as needed (5) Nausea and vomiting: Code(s): R11.2 - Nausea with vomiting, unspecified Status: Acute Assessment and Plan: patient reports intermittent / chronic nausea vomiting especially with eating started patient on Protonix PO 40 mg b.i.d. speech therapy to evaluate to ensure patient swallowing correctly GI consulted thank you for your recommendations CT of the chest abdomen and pelvis showed moderate colonic stool and sigmoid diverticulosis from 03/25/21 EGD showed gastroparesis with esophagitis Diet modification to include smaller more frequent meals (6) Hyperlipidemia: Code(s): E78.5 - Hyperlipidemia, unspecified Status: Acute Assessment and Plan: continue home pravastatin 80 mg p.o. at bedtime Lipid panel: Cholesterol 51, triglycerides 66, LDL less than 30, HDL 17 (7) Dysphagia: Qualifiers: Dysphagia type: unspecified Qualified Code(s): R13.10 - Dysphagia, unspecified Code(s): R13.10 - Dysphagia, unspecified Status: Acute Assessment and Plan: ST consulted for swallow study Barium swallow ordered for tomorrow history of peg tube GI consulted EGD showed gastroparesis with esophagitis, and undigested food Diet modification to include smaller more frequent meals (8) Failure to thrive: Status: Acute Assessment and Plan: signific
[2021-04-09 16:30] VITALS: BP 137/69; PULSE 56; RESP 18; TEMP 36.6; O2SAT 96
[2021-04-09 16:40] LABS: Glucose Point of Care 310 mg/dl (65-105)
[2021-04-09 16:40] LABS: Glucose Point of Care 118 mg/dl (65-105)
[2021-04-09 20:00] VITALS: PULSE 56; RESP 18; O2SAT 96
[2021-04-09] MEDS: INSULIN GLARGINE (*BKC) 100 UNITS/ML 18 UNITS SUB-Q (20:12)
[2021-04-09] MEDS: PRAVASTATIN SODIUM 20 MG TABLET 80 MG PO (20:12)
[2021-04-09 20:19] LABS: Glucose Point of Care 172 mg/dl (65-105)
[2021-04-09 22:00] VITALS: BP 132/55; PULSE 64; RESP 18; TEMP 36.4; O2SAT 96
[2021-04-10 05:40] LABS: Basophils Absolute Auto 0.1 K/mm3 (0.0-0.1); Eosinophils Absolute Auto 0.2 K/mm3 (0-0.3); Eosinophils Percent Auto 4.2 % (0-4.4); Hematocrit 31.5 % (42.0-52.0); Hemoglobin 10.2 g/dL (14.0-18.0); Immature Granulocyte Absolute 0.01 K/mm3 (0.00-0.031); Immature Granulocyte Percent A 0.2 % (0-0.5); Lymphocytes Absolute Auto 0.83 K/mm3 (0.9-3.2); Lymphocytes Percent Auto 17.3 % (18.3-44.2); Mean Corpuscular HGB Conc 32.4 g/dl (32-36); Mean Corpuscular Hemoglobin 30.6 pg (26-34); Mean Corpuscular Volume 94.6 fl (80-100); Mean Platelet Volume 9.2 fl (7.4-10.4); Monocytes Absolute Auto 0.7 K/mm3 (0.1-0.6); Monocytes Percent Auto 14.6 % (2.6-8.5); Neutrophils Percent Auto 62.7 % (45.5-73.1); Platelet Count Result 213 k/mm3 (150-375); Red Blood Count 3.33 M/mm3 (4.6-6.20); White Blood Count 4.8 K/mm3 (4.5-10.0)
[2021-04-10] MEDS: METOCLOPRAMIDE HCL 5 MG TABLET PO ×4 (05:57→20:15)
[2021-04-10] MEDS: SUCRALFATE SUSP 100 MG/ML 10 ML UDC 1000 MG PO ×4 (05:57→20:15)
[2021-04-10 05:58] LABS: Alanine Aminotransferase 7 U/L (4-50); Albumin Level 2.9 g/dL (3.5-5.1); Alkaline Phosphatase 52 U/L (38-126); Anion Gap 3 mmol/L (8-16); Aspartate Amino Transferase 15 U/L (17-59); Bilirubin,Total 0.2 mg/dL (0.2-1.3); Blood Urea Nitrogen 11 mg/dL (9-20); Calcium 8.1 mg/dL (8.4-10.2); Carbon Dioxide 30 mmol/L (22-30); Chloride 104 mmol/L (98-107); Estimated CRCL calculation 75 ml/min; Estimated Glomerular Filt Rate > 60; Glucose 134 mg/dL (65-110); Magnesium 2.1 mg/dL (1.6-2.3); Potassium 4.1 mmol/L (3.4-5.0); Sodium 137 mmol/L (137-145)
[2021-04-10 06:00] VITALS: BP 121/60; PULSE 56; RESP 18; TEMP 36.4; O2SAT 96
[2021-04-10 06:36] LABS: Glucose Point of Care 139 mg/dl (65-105)
--- NOTE | 2021-04-10 08:09 | P.PNIM_ITS ---
Progress Note: A&P Assessment and Plan (1) Gastroparesis due to DM: Code(s): E11.43 - Type 2 diabetes mellitus with diabetic autonomic (poly)neuropathy; K31.84 - Gastroparesis Status: Acute Assessment and Plan: * Found on the EGD * Better glycemic control post discharge * Smaller more frequent meals * Reglan (2) Atypical pneumonia: Code(s): J18.9 - Pneumonia, unspecified organism Status: Acute Assessment and Plan: * Patient just discharged on 04/01/2021 for pneumonia * four sputum cultures were collected last admission only 1 grew yeast * blood cultures NGTD * sputum culture yeast and light growth of staph. aureus * ID has been consulted * pulmonary has been consulted, and signed off as the patient is doing well * high-resolution CT of the chest showed pneumonia involving the right lung and left lower lobe worse since 03/25/2021, trace right and small left pleural effusion new since 03/25/2021 * chest x-ray showed worsened airspace and interstitial opacities in the mid and lower lung zones consistent with pneumonia (04/04/21) * Repeat chest xray: Mildly increased bilateral pulmonary infiltrates since 04/04/2021 * Antibiotics changed to IV Zosyn q6hr Day 4 * Covid test negative * Speech on board for swallow study/barium swallow showed some aspiration, but patient is refusing thickened liquids * GI consulted thank you * EGD showed undigested food, gastroparesis and esophagitis * Repeat chest xray in the AM (3) Weight loss: Code(s): R63.4 - Abnormal weight loss Status: Acute Assessment and Plan: * could be from chronic disease * could be from patient not being able to hold food down * previous visits showed GI was consulted and all indicate patient in need of a colonoscopy an EGD * Dr. Pimentel consulted thank you for your recommendations * dietitian consult- thank you for all your help * speech therapy consult to evaluate swallowing function * Barium swallow: Found aspiration with thin liquids, food did not show to have problems * patient does have a history of a G-tube * Daily weights (4) Type 1 diabetes mellitus with hyperglycemia: Code(s): E10.65 - Type 1 diabetes mellitus with hyperglycemia Status: Chronic Assessment and Plan: * glucose this morning on labs was 85 * continue home insulins * lantus 15 units HS, sliding scale, increase to high sliding scale and increase lantus to 18 units * a.c. and HS Accu-Cheks * hypoglycemia protocol * adjust medications as needed * trend glucose * A1c from 03/26/2021 was 7.5 (5) Essential hypertension: Code(s): I10 - Essential (primary) hypertension Status: Acute Assessment and Plan: * blood pressure 121/60 * continue lisinopril 2.5 mg p.o. daily * trend blood pressures * adjust medications as needed (6) Nausea and vomiting: Code(s): R11.2 - Nausea with vomiting, unspecified Status: Acute Assessment and Plan: * patient reports intermittent / chronic nausea vomiting especially with eating * started patient on Protonix PO 40 mg b.i.d. * speech therapy to evaluate to ensure patient swallowing correctly * GI consulted thank you for your recommendations * CT of the chest abdomen and pelvis showed moderate colonic stool and sigmoid diverticulosis from 03/25/21 * EGD showed gastroparesis with esophagitis * Diet modification
--- NOTE | 2021-04-10 08:09 | PM.IMPN ---
Progress Note: A&P Assessment and Plan (1) Gastroparesis due to DM: Code(s): E11.43 - Type 2 diabetes mellitus with diabetic autonomic (poly)neuropathy; K31.84 - Gastroparesis Status: Acute Assessment and Plan: Found on the EGD Better glycemic control post discharge Smaller more frequent meals Reglan (2) Atypical pneumonia: Code(s): J18.9 - Pneumonia, unspecified organism Status: Acute Assessment and Plan: Patient just discharged on 04/01/2021 for pneumonia four sputum cultures were collected last admission only 1 grew yeast blood cultures NGTD sputum culture yeast and light growth of staph. aureus ID has been consulted pulmonary has been consulted, and signed off as the patient is doing well high-resolution CT of the chest showed pneumonia involving the right lung and left lower lobe worse since 03/25/2021, trace right and small left pleural effusion new since 03/25/2021 chest x-ray showed worsened airspace and interstitial opacities in the mid and lower lung zones consistent with pneumonia (04/04/21) Repeat chest xray: Mildly increased bilateral pulmonary infiltrates since 04/04/2021 Antibiotics changed to IV Zosyn q6hr Day 4 Covid test negative Speech on board for swallow study/barium swallow showed some aspiration, but patient is refusing thickened liquids GI consulted thank you EGD showed undigested food, gastroparesis and esophagitis Repeat chest xray in the AM (3) Weight loss: Code(s): R63.4 - Abnormal weight loss Status: Acute Assessment and Plan: could be from chronic disease could be from patient not being able to hold food down previous visits showed GI was consulted and all indicate patient in need of a colonoscopy an EGD Dr. Pimentel consulted thank you for your recommendations dietitian consult- thank you for all your help speech therapy consult to evaluate swallowing function Barium swallow: Found aspiration with thin liquids, food did not show to have problems patient does have a history of a G-tube Daily weights (4) Type 1 diabetes mellitus with hyperglycemia: Code(s): E10.65 - Type 1 diabetes mellitus with hyperglycemia Status: Chronic Assessment and Plan: glucose this morning on labs was 85 continue home insulins lantus 15 units HS, sliding scale, increase to high sliding scale and increase lantus to 18 units a.c. and HS Accu-Cheks hypoglycemia protocol adjust medications as needed trend glucose A1c from 03/26/2021 was 7.5 (5) Essential hypertension: Code(s): I10 - Essential (primary) hypertension Status: Acute Assessment and Plan: blood pressure 121/60 continue lisinopril 2.5 mg p.o. daily trend blood pressures adjust medications as needed (6) Nausea and vomiting: Code(s): R11.2 - Nausea with vomiting, unspecified Status: Acute Assessment and Plan: patient reports intermittent / chronic nausea vomiting especially with eating started patient on Protonix PO 40 mg b.i.d. speech therapy to evaluate to ensure patient swallowing correctly GI consulted thank you for your recommendations CT of the chest abdomen and pelvis showed moderate colonic stool and sigmoid diverticulosis from 03/25/21 EGD showed gastroparesis with esophagitis Diet modification to include smaller more frequent meals (7) Hyperlipidemia: Code(s): E78.5 - Hyperlipidemia, unspecified Status: Acute Assessment and Plan: continue home pravastatin 80 mg p.o. at bedtime Lipid panel: Cholesterol 51, triglycerides 66, LDL less than 30, HDL 17 (8) Dysphagia: Qualifiers: Dysphagia type: unspecified Qualified Code(s): R13.10 - Dysphagia, unspecified Code(s): R13.10 - Dysphagia, unspecified Status: Acute Assessment and Pl
[2021-04-10] MEDS: lisinopriL 2.5 MG TABLET PO (08:29)
[2021-04-10] MEDS: ASPIRIN 81 MG ENTERIC TABLET PO (08:29)
[2021-04-10] MEDS: PANTOPRAZOLE 40 MG TABLET PO ×2 (08:29→20:15)
--- NOTE | 2021-04-10 13:11 | WPDGIPROGNO ---
Progress Note: A&P Additional Plan GI [facility] for Dr. Pimentel 10 Apr 2021 Denies AP, N, V, D, C. Adeline po VSS soft/NT A/P A. Nausea/Vomiting secondary to Diabetic Gastroparesis: improving on Reglan; continue B. Personal history of colon polyps in 2013: - No follow up done on this patient with high-risk polyps in 2013 - Colonoscopy when stable per [facility] Further recommendations per [facility] Thanks, [facility] [phone] Subjective Date/time seen: 04/10/21 13:11 Objective Data Vital Signs Vital Signs: Vital Signs - 24 hr 04/09/21 16:30 04/09/21 20:00 04/09/21 22:00 Temperature 36.6 C 36.4 C L Pulse Rate 56 L 56 L 64 Respiratory Rate 18 18 18 Blood Pressure 137/69 132/55 L Pulse Oximetry 96 96 96 04/10/21 06:00 Temperature 36.4 C L Pulse Rate 56 L Respiratory Rate 18 Blood Pressure 121/60 Pulse Oximetry 96 Intake/Output Intake/Output: Intake & Output 04/07/21 04/08/21 04/09/21 04/10/21 23:59 23:59 23:59 23:59 Intake Total 1540 044 893 6503 Output Total 400 950 850 500 Balance 1140 -80 80 550 Meds/Results Medications: Active Medications Generic Name Dose Route Start Last Admin Trade Name Freq PRN Reason Stop Dose Admin Aspirin 81 mg 04/06/21 09:00 04/10/21 08:29 Aspirin 81 Mg Enteric Tablet PO 81 mg DAILY ANJUM Administration Dextrose 12.5 gm 04/05/21 13:07 Dextrose 50% 25 Gm/50 Ml Syringe IV PUSH PRN PRN Hypoglycemia Protocol Glucagon 1 mg 04/05/21 13:07 Glucagon For Inj 1 Mg Vial IM PRN PRN Hypoglycemia Protocol Glucose 15 gm 04/05/21 13:07 Glucose Oral Gel 15 Gm Of Glucse In 37.5 Gm Tube PO PRN PRN Hypoglycemia Protocol Dextrose 1,000 mls @ 100 mls/hr 04/05/21 13:07 Dextrose 5% 1,000 Ml IVPB PRN PRN Hypoglycemia Protocol Piperacillin/Tazobactam/Dextrose 3.375 gm in 50 mls @ 100 mls/hr 04/06/21 10:30 04/10/21 12:58 Zosyn 3.375 Gm/D5w 50ml Pm IVPB Infused Q6HR ANJUM Infusion Insulin Aspart 4 - 8 units 04/06/21 12:00 04/10/21 12:12 Insulin Aspart (*Bkc) 100 Units/Ml SUB-Q Not Given TIDWM REPLACED BY [facility] Protocol Insulin Glargine 18 units 04/06/21 21:00 04/09/21 20:12 Insulin Glargine (*Bkc) 100 Units/Ml SUB-Q 18 units HS ANJUM Administration Lisinopril 2.5 mg 04/06/21 09:00 04/10/21 08:29 Lisinopril 2.5 Mg Tablet PO 2.5 mg DAILY ANJUM Administration Metoclopramide HCl 5 mg 04/08/21 16:30 04/10/21 12:12 Metoclopramide Hcl 5 Mg Tablet PO 5 mg ACHS ANJUM Administration Ondansetron HCl 4 mg 04/06/21 14:29 04/07/21 21:26 Ondansetron Inj 4 Mg/2 Ml Vial IV PUSH 4 mg Q6H PRN Administration Nausea And Vomiting Pantoprazole Sodium 40 mg 04/05/21 12:00 04/10/21 08:29 Pantoprazole 40 Mg Tablet PO 40 mg Q12HR ANJUM Administration Pravastatin Sodium 80 mg 04/05/21 21:00 04/09/21 20:12 Pravastatin Sodium 20 Mg Tablet PO 80 mg HS ANJUM Administration Sucralfate 1,000 mg 04/06/21 16:30 04/10/21 12:12 Sucralfate Susp 100 Mg/Ml 10 Ml Udc PO 1,000 mg ACHS ANJUM Administration Radiology Results: ITS Impressions High Resolution CT 04/05/21 09:13 IMPRESSION: 1. Pneumonia involving right lung and left lower lobe, worsened from 03/25/2021. 2. Trace right and small left pleural effusions, new from 03/25/2021. Chest X-Ray 04/07/21 06:39 IMPRESSION: Mildly increased bilateral pulmonary infiltrates since 04/04/2021 Modified Barium Swallow 04/07/21 11:48 IMPRESSION: Modified esophagram findings as above. Please refer to the speech therapy report for specific recommendations. Labs Labs: Laboratory Results - last 24 hr 04/09/21 04/09/21 04/09/21 16:35 16:37 20:11 WBC RBC Hgb Hct MCV MCH MCHC RDW Plt Count MPV Immature Gran % (Auto) Neut % (Auto) Lymph % (Auto) [place] % (Auto) Eos % (Auto) Baso % (Auto) Lymph # (Auto) [place] # (A
[2021-04-10 14:45] VITALS: BP 123/70; PULSE 59; RESP 18; TEMP 37.5; O2SAT 96
[2021-04-10 16:21] LABS: Glucose Point of Care 169 mg/dl (65-105)
[2021-04-10 19:52] VITALS: BP 142/69; PULSE 59; RESP 17; TEMP 36.9; O2SAT 95
[2021-04-10 20:00] VITALS: PULSE 59; RESP 17; O2SAT 95
[2021-04-10] MEDS: INSULIN GLARGINE (*BKC) 100 UNITS/ML 18 UNITS SUB-Q (20:13)
[2021-04-10] MEDS: PRAVASTATIN SODIUM 20 MG TABLET 80 MG PO (20:15)
[2021-04-10 20:20] LABS: Glucose Point of Care 221 mg/dl (65-105)
[2021-04-11 04:54] VITALS: BP 131/62; PULSE 63; RESP 16; TEMP 37.2; O2SAT 93
[2021-04-11 05:13] LABS: Basophils Absolute Auto 0.1 K/mm3 (0.0-0.1); Basophils Percent Auto 0.9 % (0.2-1.2); Eosinophils Absolute Auto 0.1 K/mm3 (0-0.3); Eosinophils Percent Auto 1.9 % (0-4.4); Hematocrit 32.2 % (42.0-52.0); Hemoglobin 10.5 g/dL (14.0-18.0); Immature Granulocyte Absolute 0.02 K/mm3 (0.00-0.031); Immature Granulocyte Percent A 0.3 % (0-0.5); Lymphocytes Absolute Auto 0.82 K/mm3 (0.9-3.2); Lymphocytes Percent Auto 11.1 % (18.3-44.2); Mean Corpuscular HGB Conc 32.6 g/dl (32-36); Mean Corpuscular Hemoglobin 30.2 pg (26-34); Mean Corpuscular Volume 92.5 fl (80-100); Mean Platelet Volume 9.3 fl (7.4-10.4); Monocytes Absolute Auto 0.8 K/mm3 (0.1-0.6); Monocytes Percent Auto 10.1 % (2.6-8.5); Neutrophils Absolute Auto 5.6 K/mm3 (1.3-6.7); Neutrophils Percent Auto 75.7 % (45.5-73.1); Platelet Count Result 227 k/mm3 (150-375); Red Blood Count 3.48 M/mm3 (4.6-6.20); Red Cell Distribution Width 12.9 % (11.5-14.5); White Blood Count 7.4 K/mm3 (4.5-10.0)
[2021-04-11 05:29] LABS: Alanine Aminotransferase 8 U/L (4-50); Albumin Level 3.1 g/dL (3.5-5.1); Alkaline Phosphatase 54 U/L (38-126); Anion Gap 6 mmol/L (8-16); Aspartate Amino Transferase 15 U/L (17-59); Bilirubin,Total 0.2 mg/dL (0.2-1.3); Blood Urea Nitrogen 12 mg/dL (9-20); Calcium 8.3 mg/dL (8.4-10.2); Carbon Dioxide 31 mmol/L (22-30); Chloride 101 mmol/L (98-107); Estimated CRCL calculation 75 ml/min; Estimated Glomerular Filt Rate > 60; Glucose 196 mg/dL (65-110); Magnesium 2.1 mg/dL (1.6-2.3); Potassium 3.9 mmol/L (3.4-5.0); Sodium 138 mmol/L (137-145)
[2021-04-11] MEDS: METOCLOPRAMIDE HCL 5 MG TABLET PO ×4 (05:30→20:38)
[2021-04-11] MEDS: SUCRALFATE SUSP 100 MG/ML 10 ML UDC 1000 MG PO ×4 (05:30→20:38)
[2021-04-11 06:32] LABS: Glucose Point of Care 184 mg/dl (65-105)
--- NOTE | 2021-04-11 07:25 | PM.IMPN ---
Progress Note: A&P Assessment and Plan (1) Gastroparesis due to DM: Code(s): E11.43 - Type 2 diabetes mellitus with diabetic autonomic (poly)neuropathy; K31.84 - Gastroparesis Status: Acute Assessment and Plan: Found on the EGD Better glycemic control post discharge Smaller more frequent meals Reglan 5mg PO ACHS (2) Atypical pneumonia: Code(s): J18.9 - Pneumonia, unspecified organism Status: Acute Assessment and Plan: Patient just discharged on 04/01/2021 for pneumonia four sputum cultures were collected last admission only 1 grew yeast blood cultures NGTD sputum culture yeast and light growth of MRSA ID has been consulted pulmonary has been consulted, and signed off as the patient is doing well high-resolution CT of the chest showed pneumonia involving the right lung and left lower lobe worse since 03/25/2021, trace right and small left pleural effusion new since 03/25/2021 chest x-ray showed worsened airspace and interstitial opacities in the mid and lower lung zones consistent with pneumonia (04/04/21) Repeat chest xray: Mildly increased bilateral pulmonary infiltrates since 04/04/2021 Antibiotics changed to Vancomycin 1000mg IV Q18h Covid test negative Speech on board for swallow study/barium swallow showed some aspiration, but patient is refusing thickened liquids GI consulted thank you EGD showed undigested food, gastroparesis and esophagitis Repeat chest xray: Right greater than left pneumonia and atelectasis unchanged. (3) Weight loss: Code(s): R63.4 - Abnormal weight loss Status: Acute Assessment and Plan: could be from chronic disease could be from patient not being able to hold food down previous visits showed GI was consulted and all indicate patient in need of a colonoscopy an EGD Dr. Pimentel consulted thank you for your recommendations dietitian consult- thank you for all your help speech therapy consult to evaluate swallowing function Barium swallow: Found aspiration with thin liquids, food did not show to have problems patient does have a history of a G-tube Daily weights (4) Type 1 diabetes mellitus with hyperglycemia: Code(s): E10.65 - Type 1 diabetes mellitus with hyperglycemia Status: Chronic Assessment and Plan: glucose this morning on labs was 196 continue home insulins lantus 15 units HS, sliding scale, increase to high sliding scale and increase lantus to 18 units a.c. and HS Accu-Cheks hypoglycemia protocol adjust medications as needed trend glucose A1c from 03/26/2021 was 7.5 (5) Essential hypertension: Code(s): I10 - Essential (primary) hypertension Status: Acute Assessment and Plan: blood pressure 131/62 continue lisinopril 2.5 mg p.o. daily trend blood pressures adjust medications as needed (6) Nausea and vomiting: Code(s): R11.2 - Nausea with vomiting, unspecified Status: Acute Assessment and Plan: patient reports intermittent / chronic nausea vomiting especially with eating started patient on Protonix PO 40 mg b.i.d. speech therapy to evaluate to ensure patient swallowing correctly GI consulted thank you for your recommendations CT of the chest abdomen and pelvis showed moderate colonic stool and sigmoid diverticulosis from 03/25/21 EGD showed gastroparesis with esophagitis Diet modification to include smaller more frequent meals (7) Hyperlipidemia: Code(s): E78.5 - Hyperlipidemia, unspecified Status: Acute Assessment and Plan: continue home pravastatin 80 mg p.o. at bedtime Lipid panel: Cholesterol 51, triglycerides 66, LDL less than 30, HDL 17 (8) Dysphagia: Qualifiers: Dysphagia type: unspecified Qualified Code(s): R13.10 - Dysphagia, unspecified Code(s): R13.10 - Dysphagi
--- NOTE | 2021-04-11 07:25 | P.PNIM_ITS ---
Progress Note: A&P Assessment and Plan (1) Gastroparesis due to DM: Code(s): E11.43 - Type 2 diabetes mellitus with diabetic autonomic (poly)neuropathy; K31.84 - Gastroparesis Status: Acute Assessment and Plan: * Found on the EGD * Better glycemic control post discharge * Smaller more frequent meals * Reglan 5mg PO ACHS (2) Atypical pneumonia: Code(s): J18.9 - Pneumonia, unspecified organism Status: Acute Assessment and Plan: * Patient just discharged on 04/01/2021 for pneumonia * four sputum cultures were collected last admission only 1 grew yeast * blood cultures NGTD * sputum culture yeast and light growth of MRSA * ID has been consulted * pulmonary has been consulted, and signed off as the patient is doing well * high-resolution CT of the chest showed pneumonia involving the right lung and left lower lobe worse since 03/25/2021, trace right and small left pleural effusion new since 03/25/2021 * chest x-ray showed worsened airspace and interstitial opacities in the mid and lower lung zones consistent with pneumonia (04/04/21) * Repeat chest xray: Mildly increased bilateral pulmonary infiltrates since 04/04/2021 * Antibiotics changed to Vancomycin 1000mg IV Q18h * Covid test negative * Speech on board for swallow study/barium swallow showed some aspiration, but patient is refusing thickened liquids * GI consulted thank you * EGD showed undigested food, gastroparesis and esophagitis * Repeat chest xray: Right greater than left pneumonia and atelectasis unchanged. (3) Weight loss: Code(s): R63.4 - Abnormal weight loss Status: Acute Assessment and Plan: * could be from chronic disease * could be from patient not being able to hold food down * previous visits showed GI was consulted and all indicate patient in need of a colonoscopy an EGD * Dr. Pimentel consulted thank you for your recommendations * dietitian consult- thank you for all your help * speech therapy consult to evaluate swallowing function * Barium swallow: Found aspiration with thin liquids, food did not show to have problems * patient does have a history of a G-tube * Daily weights (4) Type 1 diabetes mellitus with hyperglycemia: Code(s): E10.65 - Type 1 diabetes mellitus with hyperglycemia Status: Chronic Assessment and Plan: * glucose this morning on labs was 196 * continue home insulins * lantus 15 units HS, sliding scale, increase to high sliding scale and increase lantus to 18 units * a.c. and HS Accu-Cheks * hypoglycemia protocol * adjust medications as needed * trend glucose * A1c from 03/26/2021 was 7.5 (5) Essential hypertension: Code(s): I10 - Essential (primary) hypertension Status: Acute Assessment and Plan: * blood pressure 131/62 * continue lisinopril 2.5 mg p.o. daily * trend blood pressures * adjust medications as needed (6) Nausea and vomiting: Code(s): R11.2 - Nausea with vomiting, unspecified Status: Acute Assessment and Plan: * patient reports intermittent / chronic nausea vomiting especially with eating * started patient on Protonix PO 40 mg b.i.d. * speech therapy to evaluate to ensure patient swallowing correctly * GI consulted thank you for your recommendations * CT of the chest abdomen and pelvis showed moderate colonic stool and sigmoid diverticulosis from 03/25/21 * E
[2021-04-11] MEDS: lisinopriL 2.5 MG TABLET PO (09:01)
[2021-04-11] MEDS: ASPIRIN 81 MG ENTERIC TABLET PO (09:02)
[2021-04-11] MEDS: PANTOPRAZOLE 40 MG TABLET PO ×2 (09:02→20:38)
[2021-04-11 09:10] VITALS: RESP 16; O2SAT 94
[2021-04-11 11:32] LABS: Glucose Point of Care 246 mg/dl (65-105)
[2021-04-11] MEDS: INSULIN ASPART (*BKC) 100 UNITS/ML SUB-Q (11:38)
[2021-04-11 14:00] VITALS: BP 127/71; PULSE 62; RESP 18; TEMP 36.8; O2SAT 96
[2021-04-11 16:26] LABS: Glucose Point of Care 167 mg/dl (65-105)
--- NOTE | 2021-04-11 16:59 | WPDGIPROGNO ---
Progress Note: A&P Assessment and Plan (1) Gastroparesis due to DM: Code(s): E11.43 - Type 2 diabetes mellitus with diabetic autonomic (poly)neuropathy; K31.84 - Gastroparesis Status: Acute Assessment and Plan: on oral reglan, overall better eat small pieces, better control of glucose and reglan (2) Nausea and vomiting: Code(s): R11.2 - Nausea with vomiting, unspecified Status: Acute Assessment and Plan: antiemetics (3) Atypical pneumonia: Code(s): J18.9 - Pneumonia, unspecified organism Status: Acute Assessment and Plan: on antibiotics by id (4) Type 1 diabetes mellitus with hyperglycemia: Code(s): E10.65 - Type 1 diabetes mellitus with hyperglycemia Status: Chronic (5) Esophagitis: Code(s): K20.90 - Esophagitis, unspecified without bleeding Status: Acute Subjective Date/time seen: 04/11/21 16:59 Interval history: small amount of emesis earlier but just finished dinner, doing well and comfortable Review of Systems Review of Systems: All systems reviewed & are unremarkable except as noted in HPI and below Exam Const: General: comfortable and no acute distress Other: frail HENMT: General nose exam: Normal nares present Eyes: Sclera: sclerae normal Neck: Neck: supple Resp: Effort & Inspection: normal respiratory effort Auscultation: rales Cardio: Rate: regular rate GI: Inspection: non-distended GI Palp: Yes Soft to palpation and No Tenderness to palpation present (GI) Auscultation: normal bowel sounds Skin: General skin exam: normal color Neuro: Speech: normal speech Extrem: General: normal to inspection Psych: Mental Status: mental status grossly normal Objective Data Vital Signs Vital Signs: Vital Signs - 24 hr 04/10/21 19:52 04/10/21 20:00 04/11/21 04:54 Temperature 98.5 F 99 F Pulse Rate 59 L 59 L 63 Respiratory Rate 17 17 16 Blood Pressure 142/69 H 131/62 Pulse Oximetry 95 95 93 04/11/21 09:10 Temperature Pulse Rate Respiratory Rate 16 Blood Pressure Pulse Oximetry 94 Intake/Output Intake/Output: Intake & Output 04/08/21 04/09/21 04/10/21 04/11/21 23:59 23:59 23:59 23:59 Intake Total 605 749 3988 1220 Output Total 950 850 500 Balance -80 80 870 1220 Meds/Results Medications: Active Medications Generic Name Dose Route Start Last Admin Trade Name Ruben PRN Reason Stop Dose Admin Aspirin 81 mg 04/06/21 09:00 04/11/21 09:02 Aspirin 81 Mg Enteric Tablet PO 81 mg DAILY ANJUM Administration Dextrose 12.5 gm 04/05/21 13:07 Dextrose 50% 25 Gm/50 Ml Syringe IV PUSH PRN PRN Hypoglycemia Protocol Glucagon 1 mg 04/05/21 13:07 Glucagon For Inj 1 Mg Vial IM PRN PRN Hypoglycemia Protocol Glucose 15 gm 04/05/21 13:07 Glucose Oral Gel 15 Gm Of Glucse In 37.5 Gm Tube PO PRN PRN Hypoglycemia Protocol Dextrose 1,000 mls @ 100 mls/hr 04/05/21 13:07 Dextrose 5% 1,000 Ml IVPB PRN PRN Hypoglycemia Protocol Piperacillin/Tazobactam/Dextrose 3.375 gm in 50 mls @ 100 mls/hr 04/06/21 10:30 04/11/21 11:43 Zosyn 3.375 Gm/D5w 50ml Pm IVPB Infused Q6HR ANJUM Infusion Vancomycin HCl 1,000 mg in 250 mls @ 250 mls/hr 04/11/21 10:00 04/11/21 11:05 Vancomycin 1,000 Mg/D5w 250 Ml IVPB Infused Q18H ANJUM Infusion Insulin Aspart 4 - 8 units 04/06/21 12:00 04/11/21 16:29 Insulin Aspart (*Bkc) 100 Units/Ml SUB-Q Not Given TIDWM [facility] Protocol Insulin Glargine 18 units 04/06/21 21:00 04/10/21 20:13 Insulin Glargine (*Bkc) 100 Units/Ml SUB-Q 18 units HS ANJUM Administration Lisinopril 2.5 mg 04/06/21 09:00 04/11/21 09:01 Lisinopril 2.5 Mg Tablet PO 2.5 mg DAILY ANJUM Administration Metoclopramide HCl 5 mg 04/08/21 16:30 04/11/21 16:42 Metoclopramide Hcl 5 Mg Tablet PO 5 mg ACHS ANJUM Administration Ondansetron HCl 4 mg 04/06/21 14:29 04/07/21 2
[2021-04-11 20:00] VITALS: BP 149/60; PULSE 64; RESP 17; TEMP 37.1; O2SAT 95
[2021-04-11] MEDS: INSULIN GLARGINE (*BKC) 100 UNITS/ML 18 UNITS SUB-Q (20:43)
[2021-04-11 20:54] LABS: Glucose Point of Care 157 mg/dl (65-105)
[2021-04-11] MEDS: PRAVASTATIN SODIUM 20 MG TABLET 80 MG PO (21:47)
[2021-04-12 03:17] VITALS: BP 117/62; PULSE 61; RESP 18; TEMP 37.1; O2SAT 93
[2021-04-12 05:47] LABS: Basophils Absolute Auto 0.1 K/mm3 (0.0-0.1); Basophils Percent Auto 0.7 % (0.2-1.2); Eosinophils Absolute Auto 0.2 K/mm3 (0-0.3); Eosinophils Percent Auto 1.6 % (0-4.4); Hematocrit 33.7 % (42.0-52.0); Hemoglobin 10.8 g/dL (14.0-18.0); Immature Granulocyte Absolute 0.04 K/mm3 (0.00-0.031); Immature Granulocyte Percent A 0.4 % (0-0.5); Lymphocytes Percent Auto 10.3 % (18.3-44.2); Mean Corpuscular Hemoglobin 30.4 pg (26-34); Mean Corpuscular Volume 94.9 fl (80-100); Mean Platelet Volume 9.2 fl (7.4-10.4); Monocytes Absolute Auto 0.8 K/mm3 (0.1-0.6); Neutrophils Absolute Auto 7.7 K/mm3 (1.3-6.7); Platelet Count Result 232 k/mm3 (150-375); Red Blood Count 3.55 M/mm3 (4.6-6.20); Red Cell Distribution Width 12.9 % (11.5-14.5); White Blood Count 9.7 K/mm3 (4.5-10.0)
[2021-04-12 06:00] LABS: Alanine Aminotransferase 8 U/L (4-50); Albumin Level 3.2 g/dL (3.5-5.1); Alkaline Phosphatase 51 U/L (38-126); Anion Gap 6 mmol/L (8-16); Aspartate Amino Transferase 15 U/L (17-59); Bilirubin,Total 0.2 mg/dL (0.2-1.3); Blood Urea Nitrogen 13 mg/dL (9-20); Calcium 8.5 mg/dL (8.4-10.2); Carbon Dioxide 34 mmol/L (22-30); Chloride 99 mmol/L (98-107); Estimated CRCL calculation 68 ml/min; Estimated Glomerular Filt Rate > 60; Glucose 113 mg/dL (65-110); Magnesium 2.2 mg/dL (1.6-2.3); Potassium 3.6 mmol/L (3.4-5.0); Sodium 139 mmol/L (137-145)
[2021-04-12] MEDS: METOCLOPRAMIDE HCL 5 MG TABLET PO ×3 (06:51→15:59)
[2021-04-12] MEDS: SUCRALFATE SUSP 100 MG/ML 10 ML UDC 1000 MG PO ×4 (06:52→21:04)
[2021-04-12 06:56] LABS: Glucose Point of Care 84 mg/dl (65-105)
--- NOTE | 2021-04-12 08:14 | P.PNIM_ITS ---
Progress Note: A&P Assessment and Plan (1) Gastroparesis due to DM: Code(s): E11.43 - Type 2 diabetes mellitus with diabetic autonomic (poly)neuropathy; K31.84 - Gastroparesis Status: Acute Assessment and Plan: * Found on the EGD * Better glycemic control post discharge * Smaller more frequent meals * Reglan 5mg PO ACHS (2) Atypical pneumonia: Code(s): J18.9 - Pneumonia, unspecified organism Status: Acute Assessment and Plan: * Patient just discharged on 04/01/2021 for pneumonia * four sputum cultures were collected last admission only 1 grew yeast * blood cultures NGTD * sputum culture yeast and light growth of MRSA * ID has been consulted * pulmonary has been consulted, and signed off as the patient is doing well * high-resolution CT of the chest (from 04/05/21) showed pneumonia involving the right lung and left lower lobe worse since 03/25/2021, trace right and small left pleural effusion new since 03/25/2021 * chest x-ray showed Right greater than left pneumonia and atelectasis unchanged. (04/11/21) * Antibiotics: Vancomycin 1000mg IV Q18h, Zosyn for now * Covid test negative * Speech on board for swallow study/barium swallow showed some aspiration, but patient is refusing thickened liquids * GI consulted thank you * EGD showed undigested food, gastroparesis and esophagitis (3) Weight loss: Code(s): R63.4 - Abnormal weight loss Status: Acute Assessment and Plan: * could be from chronic disease, or not being able to hold food down * previous visits showed GI was consulted and all indicate patient in need of a colonoscopy an EGD * Dr. Pimentel consulted thank you for your recommendations * dietitian consult- thank you for all your help * speech therapy consult to evaluate swallowing function * Barium swallow: Found aspiration with thin liquids, food did not show to have problems * patient does have a history of a G-tube * Daily weights (4) Type 1 diabetes mellitus with hyperglycemia: Code(s): E10.65 - Type 1 diabetes mellitus with hyperglycemia Status: Chronic Assessment and Plan: * glucose this morning on labs was 113, POC 84 * continue home insulins * lantus 15 units HS, sliding scale, increase to high sliding scale and increase lantus to 18 units * a.c. and HS Accu-Cheks * hypoglycemia protocol * adjust medications as needed * trend glucose * A1c from 03/26/2021 was 7.5 (5) Essential hypertension: Code(s): I10 - Essential (primary) hypertension Status: Acute Assessment and Plan: * blood pressure 117/62 * continue lisinopril 2.5 mg p.o. daily * trend blood pressures * adjust medications as needed (6) Nausea and vomiting: Code(s): R11.2 - Nausea with vomiting, unspecified Status: Acute Assessment and Plan: * patient reports intermittent / chronic nausea vomiting especially with eating * started patient on Protonix PO 40 mg b.i.d, Reglan 5mg PO, carafate 1000mg PO ACHS * speech therapy to evaluate to ensure patient swallowing correctly * GI consulted thank you for your recommendations * CT of the chest abdomen and pelvis showed moderate colonic stool and sigmoid diverticulosis from 03/25/21 * EGD showed gastroparesis with esophagitis * Diet modification to include smaller more frequent meals * NO BM since 04/10/21, miralax and colace added * Consider abdomina
--- NOTE | 2021-04-12 08:14 | PM.IMPN ---
Progress Note: A&P Assessment and Plan (1) Gastroparesis due to DM: Code(s): E11.43 - Type 2 diabetes mellitus with diabetic autonomic (poly)neuropathy; K31.84 - Gastroparesis Status: Acute Assessment and Plan: Found on the EGD Better glycemic control post discharge Smaller more frequent meals Reglan 5mg PO ACHS (2) Atypical pneumonia: Code(s): J18.9 - Pneumonia, unspecified organism Status: Acute Assessment and Plan: Patient just discharged on 04/01/2021 for pneumonia four sputum cultures were collected last admission only 1 grew yeast blood cultures NGTD sputum culture yeast and light growth of MRSA ID has been consulted pulmonary has been consulted, and signed off as the patient is doing well high-resolution CT of the chest (from 04/05/21) showed pneumonia involving the right lung and left lower lobe worse since 03/25/2021, trace right and small left pleural effusion new since 03/25/2021 chest x-ray showed Right greater than left pneumonia and atelectasis unchanged. (04/11/21) Antibiotics: Vancomycin 1000mg IV Q18h, Zosyn for now Covid test negative Speech on board for swallow study/barium swallow showed some aspiration, but patient is refusing thickened liquids GI consulted thank you EGD showed undigested food, gastroparesis and esophagitis (3) Weight loss: Code(s): R63.4 - Abnormal weight loss Status: Acute Assessment and Plan: could be from chronic disease, or not being able to hold food down previous visits showed GI was consulted and all indicate patient in need of a colonoscopy an EGD Dr. Pimentel consulted thank you for your recommendations dietitian consult- thank you for all your help speech therapy consult to evaluate swallowing function Barium swallow: Found aspiration with thin liquids, food did not show to have problems patient does have a history of a G-tube Daily weights (4) Type 1 diabetes mellitus with hyperglycemia: Code(s): E10.65 - Type 1 diabetes mellitus with hyperglycemia Status: Chronic Assessment and Plan: glucose this morning on labs was 113, POC 84 continue home insulins lantus 15 units HS, sliding scale, increase to high sliding scale and increase lantus to 18 units a.c. and HS Accu-Cheks hypoglycemia protocol adjust medications as needed trend glucose A1c from 03/26/2021 was 7.5 (5) Essential hypertension: Code(s): I10 - Essential (primary) hypertension Status: Acute Assessment and Plan: blood pressure 117/62 continue lisinopril 2.5 mg p.o. daily trend blood pressures adjust medications as needed (6) Nausea and vomiting: Code(s): R11.2 - Nausea with vomiting, unspecified Status: Acute Assessment and Plan: patient reports intermittent / chronic nausea vomiting especially with eating started patient on Protonix PO 40 mg b.i.d, Reglan 5mg PO, carafate 1000mg PO ACHS speech therapy to evaluate to ensure patient swallowing correctly GI consulted thank you for your recommendations CT of the chest abdomen and pelvis showed moderate colonic stool and sigmoid diverticulosis from 03/25/21 EGD showed gastroparesis with esophagitis Diet modification to include smaller more frequent meals NO BM since 04/10/21, miralax and colace added Consider abdominal xray/ct (7) Hyperlipidemia: Code(s): E78.5 - Hyperlipidemia, unspecified Status: Acute Assessment and Plan: continue home pravastatin 80 mg p.o. at bedtime Lipid panel: Cholesterol 51, triglycerides 66, LDL less than 30, HDL 17 (8) Dysphagia: Qualifiers: Dysphagia type: unspecified Qualified Code(s): R13.10 - Dysphagia, unspecified Code(s): R13.10 - Dysphagia, unspecified Status: Acute Assessment and Plan: ST consulted for s
[2021-04-12] MEDS: polyethylene glycoL 3350 17 GM POWD.PACK PO (08:54)
[2021-04-12] MEDS: ASPIRIN 81 MG ENTERIC TABLET PO (08:55)
[2021-04-12] MEDS: lisinopriL 2.5 MG TABLET PO (08:55)
[2021-04-12 08:56] VITALS: RESP 18; O2SAT 93
[2021-04-12] MEDS: PANTOPRAZOLE 40 MG TABLET PO ×2 (08:56→21:04)
[2021-04-12] MEDS: DOCUSATE SODIUM 100 MG CAPSULE PO ×2 (08:56→21:04)
[2021-04-12] MEDS: ENOXAPARIN 40 MG/0.4 ML SYRINGE SUB-Q (09:16)
--- NOTE | 2021-04-12 11:05 | PCNFU ---
Nutrition Follow-Up Complete: Unintended weight loss as related to vomiting as evidenced by 10 ibs weight loss reported. goal: Meet estimated nutritional needs Patient is progressing towards goal. We will continue current goal. Pt current nutrition is Clear liquids with Glucerna shakes BID. Last recorded weight is 74.4 kg, no new weight to report. Recommend: new weight. Bowel Motility:+BM reported 04/10 Labs Reviewed: Glu 113, Alb 3.2,Hct 33.7,Hgb 10.8 Meds Noted:Reglan, Zofran, Colace, Lantus, Protonix, Miralax. Additional Notes: Nutrition follow up. Patient seen today, clear liquids for breakfast. Episode of emesis on 04/11. Patient has been receiving smaller more frequent meals. Overall intake has been 75-85% of meals. Diet supplements of Glucerna shakes BID providing an additional 220 kcals and 10 gms protein. Monitoring: Will monitor every 3 days.
[2021-04-12 11:08] LABS: Glucose Point of Care 81 mg/dl (65-105)
[2021-04-12 12:41] LABS: Lipase 35 U/L (23-300)
[2021-04-12] MEDS: ONDANSETRON INJ 4 MG/2 ML VIAL IV PUSH (13:59)
[2021-04-12 14:00] VITALS: BP 130/71; PULSE 59; RESP 18; TEMP 36.8; O2SAT 94
--- NOTE | 2021-04-12 16:23 | WPDGIPROGNO ---
Progress Note: A&P Assessment and Plan (1) Gastroparesis due to DM: Code(s): E11.43 - Type 2 diabetes mellitus with diabetic autonomic (poly)neuropathy; K31.84 - Gastroparesis Status: Acute Assessment and Plan: on oral reglan but still with emesis- will increase dose and reassess I do not think that emesis completely will go away given DM and gastroparesis, continue with antiemetics as well eat small pieces (2) Nausea and vomiting: Code(s): R11.2 - Nausea with vomiting, unspecified Status: Acute Assessment and Plan: antiemetics (3) Atypical pneumonia: Code(s): J18.9 - Pneumonia, unspecified organism Status: Acute Assessment and Plan: on antibiotics by id (4) Type 1 diabetes mellitus with hyperglycemia: Code(s): E10.65 - Type 1 diabetes mellitus with hyperglycemia Status: Chronic (5) Esophagitis: Code(s): K20.90 - Esophagitis, unspecified without bleeding Status: Acute Subjective Date/time seen: 04/12/21 16:23 Interval history: still some emesis but he will eat afterward, no other changes. Review of Systems Review of Systems: All systems reviewed & are unremarkable except as noted in HPI and below Exam Const: General: comfortable and no acute distress Other: frail HENMT: General nose exam: Normal nares present Eyes: Sclera: sclerae normal Neck: Neck: supple Resp: Effort & Inspection: normal respiratory effort Auscultation: rales Cardio: Rate: regular rate GI: Inspection: non-distended GI Palp: Yes Soft to palpation and No Tenderness to palpation present (GI) Auscultation: normal bowel sounds Skin: General skin exam: normal color Neuro: Speech: normal speech Extrem: General: normal to inspection Psych: Mental Status: mental status grossly normal Objective Data Vital Signs Vital Signs: Vital Signs - 24 hr 04/11/21 20:00 04/12/21 03:17 04/12/21 08:56 Temperature 98.7 F 98.7 F Pulse Rate 64 61 Respiratory Rate 17 18 18 Blood Pressure 149/60 H 117/62 Pulse Oximetry 95 93 93 04/12/21 14:00 Temperature 98.2 F Pulse Rate 59 L Respiratory Rate 18 Blood Pressure 130/71 Pulse Oximetry 94 Intake/Output Intake/Output: Intake & Output 10/03/2204/10/21 04/11/21 04/12/21 23:59 23:59 23:59 23:59 Intake Total 930 1370 1750 1790 Output Total 850 500 500 Balance 80 870 1750 1290 Meds/Results Medications: Active Medications Generic Name Dose Route Start Last Admin Trade Name Freq PRN Reason Stop Dose Admin Aspirin 81 mg 04/06/21 09:00 04/12/21 08:55 Aspirin 81 Mg Enteric Tablet PO 81 mg DAILY ANJUM Administration Dextrose 12.5 gm 04/05/21 13:07 Dextrose 50% 25 Gm/50 Ml Syringe IV PUSH PRN PRN Hypoglycemia Protocol Docusate Sodium 100 mg 04/12/21 09:00 04/12/21 08:56 Docusate Sodium 100 Mg Capsule PO 100 mg Q12HR ANJUM Administration Enoxaparin Sodium 40 mg 04/12/21 09:00 04/12/21 09:16 Enoxaparin 40 Mg/0.4 Ml Syringe SUB-Q 40 mg DAILY ANJUM Administration Glucagon 1 mg 04/05/21 13:07 Glucagon For Inj 1 Mg Vial IM PRN PRN Hypoglycemia Protocol Glucose 15 gm 04/05/21 13:07 Glucose Oral Gel 15 Gm Of Glucse In 37.5 Gm Tube PO PRN PRN Hypoglycemia Protocol Dextrose 1,000 mls @ 100 mls/hr 04/05/21 13:07 Dextrose 5% 1,000 Ml IVPB PRN PRN Hypoglycemia Protocol Piperacillin/Tazobactam/Dextrose 3.375 gm in 50 mls @ 100 mls/hr 04/06/21 10:30 04/12/21 12:15 Zosyn 3.375 Gm/D5w 50ml Pm IVPB Infused Q6HR ANJUM Infusion Vancomycin HCl 1,000 mg in 250 mls @ 250 mls/hr 04/11/21 10:00 04/12/21 04:41 Vancomycin 1,000 Mg/D5w 250 Ml IVPB Infused Q18H ANJUM Infusion Insulin Aspart 4 - 8 units 04/06/21 12:00 04/12/21 16:17 Insulin Aspart (*Bkc) 100 Units/Ml SUB-Q Not Given TIDWM ANJUM Protocol Insulin Glargine 18 units 04/06/21 21:00 04/11/21 20:43 Insulin
[2021-04-12 16:24] LABS: Glucose Point of Care 97 mg/dl (65-105)
[2021-04-12 20:03] VITALS: BP 113/61; PULSE 57; RESP 17; TEMP 36.6; O2SAT 95
[2021-04-12 20:11] VITALS: PULSE 60; RESP 18; O2SAT 95
[2021-04-12] MEDS: METOCLOPRAMIDE HCL 10 MG TABLET PO (21:04)
[2021-04-12] MEDS: INSULIN GLARGINE (*BKC) 100 UNITS/ML 18 UNITS SUB-Q (21:04)
[2021-04-12] MEDS: PRAVASTATIN SODIUM 20 MG TABLET 80 MG PO (21:04)
[2021-04-12 21:19] LABS: Glucose Point of Care 149 mg/dl (65-105)
[2021-04-13 03:14] VITALS: BP 118/64; PULSE 57; RESP 16; TEMP 36.4; O2SAT 95
[2021-04-13 05:40] LABS: Basophils Absolute Auto 0.1 K/mm3 (0.0-0.1); Basophils Percent Auto 0.6 % (0.2-1.2); Eosinophils Absolute Auto 0.2 K/mm3 (0-0.3); Eosinophils Percent Auto 2.5 % (0-4.4); Hematocrit 32.5 % (42.0-52.0); Hemoglobin 10.6 g/dL (14.0-18.0); Immature Granulocyte Absolute 0.02 K/mm3 (0.00-0.031); Immature Granulocyte Percent A 0.2 % (0-0.5); Lymphocytes Absolute Auto 1.06 K/mm3 (0.9-3.2); Lymphocytes Percent Auto 11.9 % (18.3-44.2); Mean Corpuscular HGB Conc 32.6 g/dl (32-36); Mean Corpuscular Hemoglobin 30.4 pg (26-34); Mean Corpuscular Volume 93.1 fl (80-100); Mean Platelet Volume 9.3 fl (7.4-10.4); Monocytes Absolute Auto 0.8 K/mm3 (0.1-0.6); Monocytes Percent Auto 8.8 % (2.6-8.5); Neutrophils Absolute Auto 6.8 K/mm3 (1.3-6.7); Platelet Count Result 231 k/mm3 (150-375); Red Blood Count 3.49 M/mm3 (4.6-6.20); Red Cell Distribution Width 12.9 % (11.5-14.5); White Blood Count 8.9 K/mm3 (4.5-10.0)
[2021-04-13 05:53] LABS: Alanine Aminotransferase 8 U/L (4-50); Albumin Level 3.2 g/dL (3.5-5.1); Alkaline Phosphatase 50 U/L (38-126); Anion Gap 5 mmol/L (8-16); Aspartate Amino Transferase 15 U/L (17-59); Bilirubin,Total 0.2 mg/dL (0.2-1.3); Blood Urea Nitrogen 14 mg/dL (9-20); Calcium 8.3 mg/dL (8.4-10.2); Carbon Dioxide 32 mmol/L (22-30); Chloride 101 mmol/L (98-107); Estimated CRCL calculation 68 ml/min; Estimated Glomerular Filt Rate > 60; Glucose 108 mg/dL (65-110); Magnesium 2.2 mg/dL (1.6-2.3); Potassium 3.6 mmol/L (3.4-5.0); Sodium 138 mmol/L (137-145)
[2021-04-13] MEDS: SUCRALFATE SUSP 100 MG/ML 10 ML UDC 1000 MG PO ×2 (06:07→11:45)
[2021-04-13] MEDS: METOCLOPRAMIDE HCL 10 MG TABLET PO ×2 (06:07→11:45)
[2021-04-13 06:43] LABS: Glucose Point of Care 106 mg/dl (65-105)
[2021-04-13] MEDS: ASPIRIN 81 MG ENTERIC TABLET PO (08:21)
[2021-04-13] MEDS: DOCUSATE SODIUM 100 MG CAPSULE PO (08:22)
[2021-04-13] MEDS: lisinopriL 2.5 MG TABLET PO (08:22)
[2021-04-13] MEDS: PANTOPRAZOLE 40 MG TABLET PO (08:22)
[2021-04-13] MEDS: ENOXAPARIN 40 MG/0.4 ML SYRINGE SUB-Q (08:22)
[2021-04-13] MEDS: polyethylene glycoL 3350 17 GM POWD.PACK PO (08:22)
--- NOTE | 2021-04-13 10:40 | ECG_ITS ---
Measurements Intervals [place] Rate: 57 P: 69 GA: 139 QRS: 11 QRSD: 106 T: 57 QT: 466 QTc: 454 Interpretive Statements SINUS BRADYCARDIA ATRIAL PREMATURE COMPLEX EARLY PRECORDIAL R/S TRANSITION BASELINE WANDER- II, AVF BORDERLINE ECG Electronically Signed On 04-13-2021 11:20:29 CDT by Vipul Diaz D.O.
--- NOTE | 2021-04-13 10:59 | P.DS_ITS ---
DS: Admitting Diagnosis Discharge Date Date of Service 04/13/21 08:00 Admitting Diagnosis Aspiration PNA DS: Discharge Diagnosis Discharge Diagnosis (1) Gastroparesis due to DM: Code(s): E11.43 - Type 2 diabetes mellitus with diabetic autonomic (poly)neuropathy; K31.84 - Gastroparesis Status: Acute Assessment and Plan: * Found on the EGD * Better glycemic control post discharge * Smaller more frequent meals * Reglan 5mg PO ACHS (2) Atypical pneumonia: Code(s): J18.9 - Pneumonia, unspecified organism Status: Acute Assessment and Plan: * Patient just discharged on 04/01/2021 for pneumonia * four sputum cultures were collected last admission only 1 grew yeast * blood cultures NGTD * sputum culture yeast and light growth of MRSA * ID has been consulted * pulmonary has been consulted, and signed off as the patient is doing well * high-resolution CT of the chest (from 04/05/21) showed pneumonia involving the right lung and left lower lobe worse since 03/25/2021, trace right and small left pleural effusion new since 03/25/2021 * chest x-ray showed Right greater than left pneumonia and atelectasis unchanged. (04/11/21) * Antibiotics: Vancomycin 1000mg IV Q18h, Zosyn for now * Covid test negative * Speech on board for swallow study/barium swallow showed some aspiration, but patient is refusing thickened liquids * GI consulted thank you * EGD showed undigested food, gastroparesis and esophagitis (3) Weight loss: Code(s): R63.4 - Abnormal weight loss Status: Acute Assessment and Plan: * could be from chronic disease, or not being able to hold food down * previous visits showed GI was consulted and all indicate patient in need of a colonoscopy an EGD * Dr. Pimentel consulted thank you for your recommendations * dietitian consult- thank you for all your help * speech therapy consult to evaluate swallowing function * Barium swallow: Found aspiration with thin liquids, food did not show to have problems * patient does have a history of a G-tube * Daily weights (4) Type 1 diabetes mellitus with hyperglycemia: Code(s): E10.65 - Type 1 diabetes mellitus with hyperglycemia Status: Chronic Assessment and Plan: * glucose this morning on labs was 108 * continue home insulins * lantus 15 units HS, sliding scale, increase to high sliding scale and increase lantus to 18 units * a.c. and HS Accu-Cheks * hypoglycemia protocol * adjust medications as needed * trend glucose * A1c from 03/26/2021 was 7.5 (5) Essential hypertension: Code(s): I10 - Essential (primary) hypertension Status: Acute Assessment and Plan: * blood pressure 118/64 * continue lisinopril 2.5 mg p.o. daily * trend blood pressures * adjust medications as needed (6) Nausea and vomiting: Code(s): R11.2 - Nausea with vomiting, unspecified Status: Acute Assessment and Plan: * patient reports intermittent / chronic nausea vomiting especially with eating * started patient on Protonix PO 40 mg b.i.d, Reglan 5mg PO, carafate 1000mg PO ACHS * speech therapy to evaluate to ensure patient swallowing correctly * GI consulted thank you for your recommendations * CT of the chest abdomen and pelvis showed moderate colonic stool and sigmoid diverticulosis from 03/25/21 * EGD showed gastroparesis with esophagitis * Di
--- NOTE | 2021-04-13 10:59 | PM.DS ---
DS: Admitting Diagnosis Discharge Date Date of Service 04/13/21 08:00 Admitting Diagnosis Aspiration PNA DS: Discharge Diagnosis Discharge Diagnosis (1) Gastroparesis due to DM: Code(s): E11.43 - Type 2 diabetes mellitus with diabetic autonomic (poly)neuropathy; K31.84 - Gastroparesis Status: Acute Assessment and Plan: Found on the EGD Better glycemic control post discharge Smaller more frequent meals Reglan 5mg PO ACHS (2) Atypical pneumonia: Code(s): J18.9 - Pneumonia, unspecified organism Status: Acute Assessment and Plan: Patient just discharged on 04/01/2021 for pneumonia four sputum cultures were collected last admission only 1 grew yeast blood cultures NGTD sputum culture yeast and light growth of MRSA ID has been consulted pulmonary has been consulted, and signed off as the patient is doing well high-resolution CT of the chest (from 04/05/21) showed pneumonia involving the right lung and left lower lobe worse since 03/25/2021, trace right and small left pleural effusion new since 03/25/2021 chest x-ray showed Right greater than left pneumonia and atelectasis unchanged. (04/11/21) Antibiotics: Vancomycin 1000mg IV Q18h, Zosyn for now Covid test negative Speech on board for swallow study/barium swallow showed some aspiration, but patient is refusing thickened liquids GI consulted thank you EGD showed undigested food, gastroparesis and esophagitis (3) Weight loss: Code(s): R63.4 - Abnormal weight loss Status: Acute Assessment and Plan: could be from chronic disease, or not being able to hold food down previous visits showed GI was consulted and all indicate patient in need of a colonoscopy an EGD Dr. Pimentel consulted thank you for your recommendations dietitian consult- thank you for all your help speech therapy consult to evaluate swallowing function Barium swallow: Found aspiration with thin liquids, food did not show to have problems patient does have a history of a G-tube Daily weights (4) Type 1 diabetes mellitus with hyperglycemia: Code(s): E10.65 - Type 1 diabetes mellitus with hyperglycemia Status: Chronic Assessment and Plan: glucose this morning on labs was 108 continue home insulins lantus 15 units HS, sliding scale, increase to high sliding scale and increase lantus to 18 units a.c. and HS Accu-Cheks hypoglycemia protocol adjust medications as needed trend glucose A1c from 03/26/2021 was 7.5 (5) Essential hypertension: Code(s): I10 - Essential (primary) hypertension Status: Acute Assessment and Plan: blood pressure 118/64 continue lisinopril 2.5 mg p.o. daily trend blood pressures adjust medications as needed (6) Nausea and vomiting: Code(s): R11.2 - Nausea with vomiting, unspecified Status: Acute Assessment and Plan: patient reports intermittent / chronic nausea vomiting especially with eating started patient on Protonix PO 40 mg b.i.d, Reglan 5mg PO, carafate 1000mg PO ACHS speech therapy to evaluate to ensure patient swallowing correctly GI consulted thank you for your recommendations CT of the chest abdomen and pelvis showed moderate colonic stool and sigmoid diverticulosis from 03/25/21 EGD showed gastroparesis with esophagitis Diet modification to include smaller more frequent meals NO BM since 04/10/21, miralax and colace added Consider abdominal xray/ct (7) Hyperlipidemia: Code(s): E78.5 - Hyperlipidemia, unspecified Status: Acute Assessment and Plan: continue home pravastatin 80 mg p.o. at bedtime Lipid panel: Cholesterol 51, triglycerides 66, LDL less than 30, HDL 17 (8) Dysphagia: Qualifiers: Dysphagia type: unspecified Qualified Code(s): R13.10 - Dysphagia, unspecified Co
[2021-04-13 11:42] LABS: Glucose Point of Care 83 mg/dl (65-105)
== END 2021-04-13 14:09 | disposition home health service (06) | DRG 73 ==
LOC: ANHED 17:01 → ANH2MED 04-05 00:21
PROVIDERS: Emergency Medicine; Internal Medicine Gastroenterology; Admitting Provider Family Medicine; Emergency Provider Emergency Medicine; PCP Internal Medicine; Visit Provider Nurse Practitioner
PROC: 0DJ08ZZ Inspection of Upper Intestinal Tract, Via Natural or Artificial Opening Endoscopic (ICD-10-PCS; CPT 43235; principal; 2021-04-06 14:30)
DX: E10.43 Type 1 diabetes mellitus with diabetic autonomic (poly)neuropathy (principal); J69.0 Pneumonitis due to inhalation of food and vomit; J90 Pleural effusion, not elsewhere classified; K31.84 Gastroparesis; B37.9 Candidiasis, unspecified; B95.62 Methicillin resistant Staphylococcus aureus infection as the cause of diseases classified elsewhere; K21.00 Gastro-esophageal reflux disease with esophagitis, without bleeding; Z20.822 Contact with and (suspected) exposure to COVID-19; R13.10 Dysphagia, unspecified; E10.65 Type 1 diabetes mellitus with hyperglycemia; I10 Essential (primary) hypertension; E78.5 Hyperlipidemia, unspecified; D72.829 Elevated white blood cell count, unspecified; R63.4 Abnormal weight loss; R62.7 Adult failure to thrive; Z68.21 Body mass index [BMI] 21.0-21.9, adult; Z98.42 Cataract extraction status, left eye; Z98.41 Cataract extraction status, right eye; Z79.82 Long term (current) use of aspirin
CPT/HCPCS: 36415; 71045; 71250; 80053; 80061; 81001; 82948; 83690; 83735; 85025; 87040; 87070; 87077; 87186; 87205; 87426; 88305; 88312; 88342; 92526; 92610; 92611; 93005; 96374; 97161; 97165; 99285; A9270; C9803; J0456; J0692; J0696; J1650; J1815; J2001; J2405; J2543; J2704; J2765; J3370; J7030; J7120

== ENCOUNTER 2021-04-20 09:30 | Outpatient (RCR) | payer MEDICARE, SELFPAY ==
[2021-01-27 09:22] VITALS: BMI 20.5
[2021-01-27 09:34] VITALS: BMI 20.5
== END 2021-04-27 11:50 | disposition home or self-care (01) ==
LOC: ANHDMC 09:30
PROVIDERS: PCP Internal Medicine; Visit Provider Internal Medicine Endocrinology, Diabetes & Metabolism
DX: E10.65 Type 1 diabetes mellitus with hyperglycemia (principal); Z71.3 Dietary counseling and surveillance; Z71.89 Other specified counseling
CPT/HCPCS: 97802; G0108

== ENCOUNTER 2021-05-03 13:36 | Inpatient (IN) | payer MEDICARE, MEDICAID, SELFPAY ==
[2021-05-03] VITALS (29 sets, daily range): BP systolic 101–157; BP diastolic 65–88; PULSE 49–77; RESP 12–21; TEMP 36.2–36.5; O2SAT 94–100; BMI 18.3
--- NOTE | ~2021-05-03 | XR_ITS ---
EXAMINATION: XR barium swallow modified EXAM DATE: 05/04/2021 12:14 INDICATION: Dysphagia. TECHNIQUE: Modified barium esophagram was performed by speech pathologist with radiologist Dr. Greg Wisdom present to administered fluoroscopy. Speech pathologist administered barium in varying consis tencies as per speech pathologist documentation. This was recorded on tape. There was total fluorosc opic time of 2.1. The DAP for this procedure was 1.2 Gycm2. A total of 2 images sent to PACS from t exam. FINDINGS: Oral stage: Adequate function. Pharyngeal phase: Reduced laryngeal elevation, retraction. Large pyriform residual. Laryngeal penetration: Demonstrated. Aspiration: Demonstrated. Laryngeal sensitivity: Absent. IMPRESSION: Aspiration demonstrated; Please refer to speech pathologist findings and specific feedi ng recommendations. Reviewed, dictated and finalized at location A. IMPRESSION: Aspiration demonstrated; Please refer to speech pathologist findi ngs and specific feeding recommendations.
--- NOTE | ~2021-05-03 | XR_ITS ---
EXAMINATION: XR chest 2V EXAM DATE: 05/03/2021 14:39 INDICATION: Weakness, weight loss, vomiting. TECHNIQUE: Frontal and lateral projections of the chest obtained and reviewed. Comparison is made to prior examination from 04/11/2021. FINDINGS: Significant interval improvement in previously seen moderate amount of bilateral mid and l ower lung zone reticulonodular airspace disease. There is still evidence of small amount of bibasilar airspace disease, left greater than right. Probably pneumonia. No pneumothorax or pleural effusion. Cardiomediastinal silhouette is normal. There are no osseous abnormalities identified. The lungs are hyperinflated which can be seen with chronic obstructive pulmonary disease (a clinical diagnosis of f unctional impairment), but is not diagnostic of it. IMPRESSION: Small amount of bibasilar pneumonia, with significant improvement compared to prior stud y. Chronic hyperinflation. Reviewed, dictated and finalized at location A. IMPRESSION: Small amount of bibasilar pneumonia, with significant improvement compared to prior study. Chronic hyperinflation.
--- NOTE | ~2021-05-03 | XR_ITS ---
EXAMINATION: XR fl Dobhoff insert/rad w img DATE: 05/04/2021 16:30 INDICATION: Aspiration. Dobbhoff placement. TECHNIQUE: A Dobbhoff type feeding tube was advanced into the duodenum utilizing intermittent fluoroscopy. The t ube was flushed with 10 mL sterile saline and fixed to the nares with adhesive tape. A single fluoros copic image was recorded. The amount of fluoroscopy time used during this procedure was 2.3 minutes. Single fluoroscopic image was obtained. There were no immediate complications. FINDINGS: Successful fluoroscopy-guided Dobbhoff feeding tube placement with distal tip at the gastric antrum. There is significant gaseous distention of the stomach. Sufficient redundancy of tubing is present in the stomach to allow for passive advancement of the tubing into the duodenum with peristalsis follow ing decompression of the stomach. IMPRESSION: Successful fluoroscopic guided Dobbhoff feeding tube placement with distal tip at the gastric antrum. Reviewed, dictated and finalized at location A.
--- NOTE | 2021-05-03 14:16 | ECG_ITS ---
Measurements Intervals [place] Rate: 71 P: 83 [place]: 160 QRS: 55 QRSD: 118 T: 63 QT: 446 QTc: 488 Interpretive Statements SINUS RHYTHM SUPRAVENTRICULAR BIGEMINY INTRAVENTRICULAR CONDUCTION DELAY BORDERLINE ST-T WAVE ABNORMALITY- DIFFUSE LEADS BASELINE ARTIFACT- I, III, AVR, AVL, AVF, V3 ABNORMAL ECG Electronically Signed On 05-03-2021 14:34:04 CDT by Vipul Diaz D.O.
[2021-05-03 14:44] LABS: Basophils Absolute Auto 0.1 K/mm3 (0.0-0.1); Basophils Percent Auto 0.7 % (0.2-1.2); Eosinophils Absolute Auto 0.1 K/mm3 (0-0.3); Eosinophils Percent Auto 0.7 % (0-4.4); Hematocrit 38.9 % (42.0-52.0); Hemoglobin 12.6 g/dL (14.0-18.0); Immature Granulocyte Absolute 0.02 K/mm3 (0.00-0.031); Immature Granulocyte Percent A 0.3 % (0-0.5); Lymphocytes Absolute Auto 1.11 K/mm3 (0.9-3.2); Mean Corpuscular HGB Conc 32.4 g/dl (32-36); Mean Corpuscular Hemoglobin 29.6 pg (26-34); Mean Corpuscular Volume 91.3 fl (80-100); Mean Platelet Volume 10.5 fl (7.4-10.4); Monocytes Absolute Auto 0.7 K/mm3 (0.1-0.6); Monocytes Percent Auto 9.8 % (2.6-8.5); Neutrophils Percent Auto 72.5 % (45.5-73.1); Platelet Count Result 203 k/mm3 (150-375); Red Blood Count 4.26 M/mm3 (4.6-6.20); Red Cell Distribution Width 13.1 % (11.5-14.5)
[2021-05-03 15:03] LABS: Add Urine Microscopic? YES; Appearance Urine Clear (Clear); Bilirubin Urine Negative (Negative); Blood Urine Negative (Negative); Color Urine Yellow (Yellow); Glucose Urine UA 3+ mg/dL (Negative); Ketones Urine Negative (Negative); Leukocyte Esterase Ur Negative LEU/UL (Negative); Mucus Urine Rare /lpf; Nitrate Urine Negative (Negative); Protein Urine 2+ mg/dL (Negative); RBC Urine 0-2 /hpf (0-2); Specific Grav Ur 1.025 (1.001-1.035); Urobilinogen Urine Negative mg/dL (<2.0); WBC Urine 0-3 /hpf
[2021-05-03 15:12] LABS: Alanine Aminotransferase 17 U/L (4-50); Albumin Level 4.1 g/dL (3.5-5.1); Alkaline Phosphatase 72 U/L (38-126); Aspartate Amino Transferase 21 U/L (17-59); Bilirubin,Total 0.8 mg/dL (0.2-1.3); Blood Urea Nitrogen 43 mg/dL (9-20); Calcium 9.7 mg/dL (8.4-10.2); Carbon Dioxide > 40 mmol/L (22-30); Chloride 78 mmol/L (98-107); Estimated CRCL calculation 40 ml/min; Estimated Glomerular Filt Rate 51; Glucose 338 mg/dL (65-110); Potassium 2.8 mmol/L (3.4-5.0); Sodium 134 mmol/L (137-145)
[2021-05-03 18:47] LABS: Glucose Point of Care 304 mg/dl (65-105)
--- NOTE | 2021-05-03 18:56 | ED.WEAKNESS ---
HPI - Weakness General Chief complaint: Weakness Stated complaint: MALNUTRITION, N/V Time Seen by Provider: 05/03/21 18:04 Source: patient, RN notes reviewed and old records reviewed Mode of arrival: ambulatory Limitations: other (cognitive impairment) History of Present Illness HPI Narrative: This is a a 65 year old male with DM, gastroparesis, aspiration pneumonia who presents for evaluation of malnutrition. Patient has been dealing with weight loss and intermittent nausea and vomiting since December 2020. He states he has lost 50 pounds sine December. He was recently hospitalized and evaluated for his symptoms. He was discharged from hospital 2 weeks ago after diagnosis and treatment of gastroparesis, esophagitis and bilateral pneumonia. He was discharged on Reglan to help with his nausea and vomiting. Patient reports he still has intermittent nausea and vomiting, and he states he has been taking his medications. He denies any nausea, vomiting or abdominal pain today. He has eaten some eggs and toast today. He was seen by his PCP today he told patient to come to ER for admission to hospital. Patient reports some weakness but denies dizziness or falling. He reports chronic shortness of breath but no worsening. Related Data Home Medications Medication Instructions Recorded Confirmed aspirin 81 mg tablet,delayed 81 mg PO DAILY 06/19/19 05/03/21 release Dexcom G6 Sensor 03/25/21 05/03/21 lisinopril [Zestril] 2.5 mg PO DAILY 03/25/21 05/03/21 Allergies Allergy/AdvReac Type Severity Reaction Status Date / Time No Known Allergies Allergy Verified 05/03/21 18:42 Review of Systems Review of Systems: All systems reviewed & are unremarkable except as noted in HPI and below PMFSH Past Medical History Medical History Dysphagia Encounter for feeding tube placement Esophagitis Gastroparesis due to DM History of gastrostomy tube placement Which has been removed Hyperlipidemia Leukocytosis SIRS (systemic inflammatory response syndrome) Type 1 diabetes mellitus with hyperglycemia Surgical History Surgical History H/O knee surgery Broken knee 12/2019 left knee History of cataract extraction Family History Family History Sibling Diabetes mellitus Family history of lung cancer Father Family history of cardiovascular disease Heart disease Mother Diabetes mellitus Hypertension Family history of thyroid problem Social History Social History Social History: The patient lives with his brother and sister. The patient is a lifelong nonsmoker. He does not use any alcohol marijuana or illicit drugs. 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 The patient stated that his brother and sister would be the durable power claim attorney for healthcare. The patient is a full code. Smoking status: Never smoker Second hand tobacco smoke exposure: Yes Alcohol intake: never Substance use: never Substance use type: does not use Spiritual care concerns: No Exam Const: General: no acute distress and alert Nutritional Appearance: thin Orientation/consciousness: patient oriented x3 HENMT: Mouth: Yes Normal oral and palatal mucosa present and Yes lip normal Throat: uvula midline Eyes: EOM: EOMs intact bilaterally Chest: Chest palpation & inspection: normal inspection of the chest Resp: Effort & Inspection: normal respiratory effort and no retractions Auscultation: clear to auscultation bilaterally Cardio: Rate: regular rate Rhythm: regular rhythm Heart sounds: no murmurs GI: GI Palp: Yes Soft to palpation, No Tenderness to palpation present (GI) and No Guarding due to palpation present (GI) Auscultation: normal bowel sounds Skin: General skin exam: normal color Rashes: n
[2021-05-03] MEDS: POTASSIUM CHLORIDE 20 MEQ TABLET 40 MEQ PO (19:10)
[2021-05-03] MEDS: SODIUM CHLORIDE 0.9% IV 1,000 ML 999 ML IV CONT (19:21)
[2021-05-03 20:17] LABS: Glucose Point of Care 306 mg/dl (65-105)
--- NOTE | 2021-05-03 20:32 | PM.IMHP ---
H&P: HPI History of Present Illness Date/Time: 05/03/21 20:32 Chief Complaint: Weight loss Narrative: This is a 65-year-old male with past medical history significant for type 2 diabetes mellitus, dyslipidemia, dysphagia, aspiration pneumonia, G-tube placement and removal, protein calorie malnutrition, hypertension, gastroparesis, patient with recent admission to the hospital for intractable nausea and vomiting discharged home patient returns with same complaints having nausea and vomiting unable to keep anything down weight loss on wanted of 50 lb roughly patient feelsvery,weak,fatigued,short of breath, having dizziness. Patient states that he is willing to go to a retirement if he needs to recover from his weight loss and malnutrition. He denies any fevers, any rigors, any chills ,any cough ,any sputum production, no diarrhea no abdominal pain. Preliminary workup was significant for a potassium of 2.8 a chloride of 78 BUN 43 creatinine of 1.4 glucose 338 a chest x-ray was significant for small amount of bibasilar pneumonia, with significant improvement compared to prior study, chronic hyperinflation. Patient has been admitted for further evaluation management and treatment. Review of Systems Review of Systems: Unwanted weight loss of roughly 50 lb, weakness, fatigue dizziness, nausea and vomiting. Constitutional: Constitutional: Denies chills, Reports fatigue, Denies fever(s), Denies lethargy, Denies malaise, Reports weakness and Reports weight loss Eyes: Eyes: Denies change in vision ENT: Reports dysphagia, Denies hoarseness, Denies nasal congestion, Denies nasal discharge, Denies nasal obstruction and Denies odynophagia Cardiovascular: Cardiovascular: Denies edema, Denies irregular heart rhythm, Denies leg ulcers, Denies leg edema, Denies lightheadedness, Denies radiating jaw, neck or arm pain, Denies palpitations, Denies dyspnea on exertion and Denies orthopnea Respiratory: Respiratory: Denies cough, Denies excessive phlegm production, Denies dyspnea and Denies wheezing Gastrointestinal: Gastrointestinal: Denies abdominal pain, Denies melena, Denies dyspepsia, Denies heartburn, Denies diarrhea, Reports nausea and Reports vomiting Genitourinary: Genitourinary: Reports no additional male genitourinary complaints and Reports as per HPI Musculoskeletal: Musculoskeletal: Reports muscle weakness Integumentary/Breasts: Skin/Breast: Denies rash Neurologic: Denies focal weakness and Denies Sensory deficit (Neuro) Psychiatric: Psychiatric: Reports no additional psychiatric complaints and Reports as per HPI Endocrine: Comments: Weight loss Hematologic/Lymphatic: Hematologic/Lymphatic: Reports no additional hematologic/lymphatic complaints and Reports as per HPI Allergic/Immunologic: Allergic/Immunologic: Reports no additional allergic/immunologic complaints and Reports as per HPI [facility] Past Medical History Medical History Dysphagia Encounter for feeding tube placement Esophagitis Gastroparesis due to DM History of gastrostomy tube placement Which has been removed Hyperlipidemia Leukocytosis SIRS (systemic inflammatory response syndrome) Type 1 diabetes mellitus with hyperglycemia Surgical History Surgical History H/O knee surgery Broken knee 12/2019 left knee History of cataract extraction Family History Family History Sibling Diabetes mellitus Family history of lung cancer Father Family history of cardiovascular disease Heart disease Mother Diabetes mellitus Hypertension Family history of thyroid problem Social History Social History (Reviewed 04/20/21 @ 09:06 by Regina Quiles [facility]) Social History: The patient lives with his brother and sister. The patient is a lifelong nonsmoker. He does not use any alcohol marijuana or illicit drugs. The
[2021-05-03] MEDS: INSULIN ASPART (*BKC) 100 UNITS/ML SUB-Q (20:50)
[2021-05-03] MEDS: LACTATED RINGERS 1,000 ML 125 ML IV CONT (20:50)
[2021-05-03 21:09] LABS: Magnesium 2.1 mg/dL (1.6-2.3)
--- NOTE | 2021-05-03 21:21 | PC.NURSE ---
Called and gave an update to Piper, patient's , with patient's permission. [phone].
--- NOTE | 2021-05-03 21:44 | ADMGEN ---
This patient, Payam Mars, was admitted to [facility] Surg Room 330-01. Patient/family oriented to hospital policies and general routines including ID bracelet, bed and alarms, visiting hours, pain management, procedures, bathroom and other care routines, personal items, smoking policy, room service/diet, and visiting hours. Information on how to activate the Rapid Response Team has been discussed. Patient/Family are encouraged to report perceived risks to care and to ask questions if they do not understand what they are told or what they should do.
[2021-05-03 22:00] LABS: Glucose Point of Care 269 mg/dl (65-105)
[2021-05-04] VITALS (11 sets, daily range): BP systolic 103–139; BP diastolic 57–77; PULSE 48–68; RESP 16; TEMP 36.1–36.6; O2SAT 96–98; BMI 18.3
[2021-05-04] MEDS: LACTATED RINGERS 1,000 ML 125 ML IV CONT ×2 (04:54→18:27)
[2021-05-04 06:18] LABS: Anion Gap 3 mmol/L (8-16); Blood Urea Nitrogen 31 mg/dL (9-20); Calcium 8.4 mg/dL (8.4-10.2); Carbon Dioxide 39 mmol/L (22-30); Chloride 91 mmol/L (98-107); Estimated CRCL calculation 63 ml/min; Estimated Glomerular Filt Rate > 60; Glucose 243 mg/dL (65-110); Potassium 3.2 mmol/L (3.4-5.0); Sodium 133 mmol/L (137-145)
--- NOTE | 2021-05-04 07:15 | PM.IMPN ---
Progress Note: A&P Assessment and Plan (1) Failure to thrive syndrome, adult: Code(s): R62.7 - Adult failure to thrive Status: Acute Assessment and Plan: No notable weight loss Weight has been stable since admission consult dietitian thank you small frequent meals daily weights encourage PO intake benefit from dietary supplements PT OT consult (2) Weight loss, non-intentional: Code(s): R63.4 - Abnormal weight loss Status: Acute Assessment and Plan: Patient with intractable nausea and vomiting with the last episode being last Sunday Will consider alternative measures to avoid further weight Modified barium swallow found aspiration all the way up to pudding thick Dobbhoff placed Tube feeding started Weight loss is significant at this time and appears to be about 20lbs in a month GI consulted thank you Consider a GJ tube- will need transfer for this (3) Hypokalemia: Code(s): E87.6 - Hypokalemia Status: Acute Assessment and Plan: K 3.2 [address] with 40meq IV once Trend Replace as needed (4) Gastroparesis due to DM: Code(s): E11.43 - Type 2 diabetes mellitus with diabetic autonomic (poly)neuropathy; K31.84 - Gastroparesis Status: Acute Assessment and Plan: To have small meals throughout the day change raglan to erythromycin Consult GI Dobbhoff placed Tube feeding initiated (5) Nausea and vomiting: Code(s): R11.2 - Nausea with vomiting, unspecified Status: Acute Assessment and Plan: Zofran PRN and erythromycin 250mg PO AC Supportive care (6) Esophagitis: Code(s): K20.90 - Esophagitis, unspecified without bleeding Status: Acute Assessment and Plan: Continue sucralfate (7) Type 1 diabetes mellitus with hyperglycemia: Code(s): E10.65 - Type 1 diabetes mellitus with hyperglycemia Status: Chronic Assessment and Plan: Current glucose 243 Accu-Cheks AC and HS Continue home Lantus 18, Lispro 6 units trend glucose Adjust medications as needed. (8) Hypertension: Code(s): I10 - Essential (primary) hypertension Status: Acute Assessment and Plan: blood pressure 139/77 continue lisinopril 2.5 mg p.o. daily trend blood pressures adjust medications as needed Time Spent With Patient Time with patient: Greater than 35 minutes Subjective Date/time seen: 11/03/21 0715 Interval history: Date/Time: 05/03/21 20:32 Narrative: This is a 65-year-old male with past medical history significant for type 2 diabetes mellitus, dyslipidemia, dysphagia, aspiration pneumonia, G-tube placement and removal, protein calorie malnutrition, hypertension, gastroparesis, patient with recent admission to the hospital for intractable nausea and vomiting discharged home patient returns with same complaints having nausea and vomiting unable to keep anything down weight loss on wanted of 50 lb roughly patient feels very,weak,fatigued,short of breath, having dizziness. Patient states that he is willing to go to a fdc if he needs to recover from his weight loss and malnutrition. He denies any fevers, any rigors, any chills ,any cough ,any sputum production, no diarrhea no abdominal pain. Preliminary workup was significant for a potassium of 2.8 a chloride of 78 BUN 43 creatinine of 1.4 glucose 338 a chest x-ray was significant for small amount of bibasilar pneumonia, with significant improvement compared to prior study, chronic hyperinflation. Patient has been admitted for further evaluation management and treatment. Date/Time Seen: 05/04/21714 Patient stated that he feels the same as he always does. He stated the last time he vomited was Sunday. He also states that he does take his meds and that he cooks himself eggs and toast every morning and he thinks that he just must not
--- NOTE | 2021-05-04 07:15 | P.PNIM_ITS ---
Progress Note: A&P Assessment and Plan (1) Failure to thrive syndrome, adult: Code(s): R62.7 - Adult failure to thrive Status: Acute Assessment and Plan: * No notable weight loss * Weight has been stable since admission * consult dietitian thank you * small frequent meals * daily weights * encourage PO intake * benefit from dietary supplements * PT OT consult (2) Weight loss, non-intentional: Code(s): R63.4 - Abnormal weight loss Status: Acute Assessment and Plan: * Patient with intractable nausea and vomiting with the last episode being last Sunday * Will consider alternative measures to avoid further weight * Modified barium swallow found aspiration all the way up to pudding thick * Dobbhoff placed * Tube feeding started * Weight loss is significant at this time and appears to be about 20lbs in a month * GI consulted thank you * Consider a GJ tube- will need transfer for this (3) Hypokalemia: Code(s): E87.6 - Hypokalemia Status: Acute Assessment and Plan: * K 3.2 currently * Rplace with 40meq IV once * Trend * Replace as needed (4) Gastroparesis due to DM: Code(s): E11.43 - Type 2 diabetes mellitus with diabetic autonomic (poly)neuropathy; K31.84 - Gastroparesis Status: Acute Assessment and Plan: * To have small meals throughout the day * change raglan to erythromycin * Consult GI * Dobbhoff placed * Tube feeding initiated (5) Nausea and vomiting: Code(s): R11.2 - Nausea with vomiting, unspecified Status: Acute Assessment and Plan: * Zofran PRN and erythromycin 250mg PO AC * Supportive care (6) Esophagitis: Code(s): K20.90 - Esophagitis, unspecified without bleeding Status: Acute Assessment and Plan: * Continue sucralfate (7) Type 1 diabetes mellitus with hyperglycemia: Code(s): E10.65 - Type 1 diabetes mellitus with hyperglycemia Status: Chronic Assessment and Plan: * Current glucose 243 * Accu-Cheks AC and HS * Continue home Lantus 18, Lispro 6 units * trend glucose * Adjust medications as needed. (8) Hypertension: Code(s): I10 - Essential (primary) hypertension Status: Acute Assessment and Plan: * blood pressure 139/77 * continue lisinopril 2.5 mg p.o. daily * trend blood pressures * adjust medications as needed Time Spent With Patient Time with patient: Greater than 35 minutes Subjective Date/time seen: 05/04/21 0715 Interval history: Date/Time: 05/03/21 20:32 Narrative: This is a 65-year-old male with past medical history significant for type 2 diabetes mellitus, dyslipidemia, dysphagia, aspiration pneumonia, G-tube placement and removal, protein calorie malnutrition, hypertension, gastrop aresis, patient with recent admission to the hospital for intractable nausea and vomiting discharged home patient returns with same complaints having nausea and vomiting unable to keep anything down weight loss on wanted of 50 lb roughly patient feels very,weak,fatigued,short of breath, having dizziness. Patient states that he is willing to go to a care home if he needs to recover from his weight loss and malnutrition. He denies any fevers, any rigors, any chills ,any cough ,any sputum production, no diarrhea no abdominal pain. Preliminary workup was significant for a potassium of 2.
[2021-05-04 08:03] LABS: Glucose Point of Care 247 mg/dl (65-105)
[2021-05-04] MEDS: INSULIN ASPART (*BKC) 100 UNITS/ML SUB-Q ×3 (08:04→17:47)
[2021-05-04] MEDS: PANTOPRAZOLE SODIUM IV 40 MG VIAL IV PUSH (08:06)
[2021-05-04] MEDS: POTASSIUM CHLORIDE 20 MEQ TABLET.ER 40 MEQ PO (08:06)
[2021-05-04] MEDS: lisinopriL 2.5 MG TABLET PO (08:38)
[2021-05-04] MEDS: METOCLOPRAMIDE HCL 10 MG TABLET PO (10:43)
[2021-05-04] MEDS: SUCRALFATE SUSP 100 MG/ML 10 ML UDC 1000 MG PO ×2 (10:43→20:28)
[2021-05-04 11:55] LABS: Glucose Point of Care 303 mg/dl (65-105)
--- NOTE | 2021-05-04 13:07 | PC.NURSE ---
On 05/04/21, the student, Nighat Gray, provided care and completed [email or web address] documentation on this patient. I have reviewed the student's documentation and agree with the findings.
--- NOTE | 2021-05-04 15:43 | PCSTNOTE ---
Please refer to the Modified Barium Swallow Evaluation in the EMR.
[2021-05-04] MEDS: ERYTHROMYCIN 250 MG TABLET PO (17:42)
[2021-05-04 17:52] LABS: Glucose Point of Care 121 mg/dl (65-105)
[2021-05-04] MEDS: PANTOPRAZOLE 40 MG TABLET PO (20:28)
[2021-05-04] MEDS: PRAVASTATIN SODIUM 20 MG TABLET 80 MG PO (20:29)
[2021-05-05] VITALS (10 sets, daily range): BP systolic 123–131; BP diastolic 69–72; PULSE 53–68; RESP 16; TEMP 36.4–36.7; O2SAT 95–97; BMI 18.3
[2021-05-05 00:11] LABS: Glucose Point of Care 146 mg/dl (65-105)
[2021-05-05] MEDS: LACTATED RINGERS 1,000 ML 125 ML IV CONT (03:40)
[2021-05-05] MEDS: ERYTHROMYCIN 250 MG TABLET PO ×3 (05:37→16:15)
[2021-05-05] MEDS: SUCRALFATE SUSP 100 MG/ML 10 ML UDC 1000 MG PO ×4 (05:37→23:32)
[2021-05-05 06:04] LABS: Glucose Point of Care 202 mg/dl (65-105)
[2021-05-05 08:22] LABS: Glucose Point of Care 202 mg/dl (65-105)
[2021-05-05 08:29] LABS: Basophils Absolute Auto 0.1 K/mm3 (0.0-0.1); Basophils Percent Auto 0.9 % (0.2-1.2); Eosinophils Absolute Auto 0.1 K/mm3 (0-0.3); Eosinophils Percent Auto 1.8 % (0-4.4); Hematocrit 31.2 % (42.0-52.0); Hemoglobin 10.1 g/dL (14.0-18.0); Immature Granulocyte Absolute 0.01 K/mm3 (0.00-0.031); Immature Granulocyte Percent A 0.1 % (0-0.5); Immature Platelet Fraction Pct 4.3 % (0.9-11.2); Lymphocytes Absolute Auto 0.97 K/mm3 (0.9-3.2); Lymphocytes Percent Auto 14.2 % (18.3-44.2); Mean Corpuscular HGB Conc 32.4 g/dl (32-36); Mean Corpuscular Hemoglobin 29.9 pg (26-34); Mean Corpuscular Volume 92.3 fl (80-100); Mean Platelet Volume 10.5 fl (7.4-10.4); Monocytes Absolute Auto 0.4 K/mm3 (0.1-0.6); Monocytes Percent Auto 6.1 % (2.6-8.5); Neutrophils Absolute Auto 5.3 K/mm3 (1.3-6.7); Neutrophils Percent Auto 76.9 % (45.5-73.1); Platelet Count Result 144 k/mm3 (150-375); Red Blood Count 3.38 M/mm3 (4.6-6.20); Red Cell Distribution Width 13.1 % (11.5-14.5); White Blood Count 6.8 K/mm3 (4.5-10.0)
--- NOTE | 2021-05-05 08:35 | P.PNIM_ITS ---
Progress Note: A&P Assessment and Plan (1) Failure to thrive syndrome, adult: Code(s): R62.7 - Adult failure to thrive Status: Acute Assessment and Plan: * According to the clinical staff educator the patient has lost 20lbs over the last month * consult dietitian thank you * small frequent meals * daily weights * encourage PO intake * benefit from dietary supplements * PT OT consult (2) Weight loss, non-intentional: Code(s): R63.4 - Abnormal weight loss Status: Acute Assessment and Plan: * Patient with intractable nausea and vomiting with the last episode being last Sunday * Will consider alternative measures to avoid further weight loss * Modified barium swallow found aspiration all the way up to pudding thick * Dobbhoff placed * Tube feeding started * Weight loss is significant at this time and appears to be about 20lbs in a month * GI consulted thank you * Consider a GJ tube- will need transfer for this (3) Hypokalemia: Code(s): E87.6 - Hypokalemia Status: Acute Assessment and Plan: * K 4.0 currently * Trend * Replace as needed (4) Gastroparesis due to DM: Code(s): E11.43 - Type 2 diabetes mellitus with diabetic autonomic (poly)neuropathy; K31.84 - Gastroparesis Status: Acute Assessment and Plan: * To have small meals throughout the day * change raglan to erythromycin * Consult GI * Dobbhoff placed * Tube feeding initiated * PEG tube placement scheduled for today (5) Nausea and vomiting: Code(s): R11.2 - Nausea with vomiting, unspecified Status: Acute Assessment and Plan: * Zofran PRN and erythromycin 250mg PO AC * Supportive care (6) Esophagitis: Code(s): K20.90 - Esophagitis, unspecified without bleeding Status: Acute Assessment and Plan: * Continue sucralfate * PEG tube will be placed today (7) Type 1 diabetes mellitus with hyperglycemia: Code(s): E10.65 - Type 1 diabetes mellitus with hyperglycemia Status: Chronic Assessment and Plan: * Current glucose 210 * Accu-Cheks Q4hr * lantus 10 units Daily, aspart 4 units Q6hr, increase lantus to 15 units Daily * With the tube feeding insulin should be adjusted * trend glucose * Adjust medications as needed. (8) Hypertension: Code(s): I10 - Essential (primary) hypertension Status: Acute Assessment and Plan: * blood pressure 126/65 * continue lisinopril 2.5 mg p.o. daily * trend blood pressures * adjust medications as needed (9) Aspiration into respiratory tract: Code(s): T17.908A - Unspecified foreign body in respiratory tract, part unspecified causing other injury, initial encounter Status: Acute Assessment and Plan: * Aspiration precautions Subjective Date/time seen: 05/05/21 0835 Interval history: Date/Time: 05/03/21 20:32 Narrative: This is a 65-year-old male with past medical history significant for type 2 diabetes mellitus, dyslipidemia, dysphagia, aspiration pneumonia, G-tube placement and removal, protein calorie malnutrition, hypertension, gastroparesis, patient with recent admission to the hospital for intractable nausea and vomiting discharged home patient returns with same complaints having nausea and vomiting unable to keep anything down weight loss on wanted of
--- NOTE | 2021-05-05 08:35 | PM.IMPN ---
Progress Note: A&P Assessment and Plan (1) Failure to thrive syndrome, adult: Code(s): R62.7 - Adult failure to thrive Status: Acute Assessment and Plan: According to the nutrition educator the patient has lost 20lbs over the last month consult dietitian thank you small frequent meals daily weights encourage PO intake benefit from dietary supplements PT OT consult (2) Weight loss, non-intentional: Code(s): R63.4 - Abnormal weight loss Status: Acute Assessment and Plan: Patient with intractable nausea and vomiting with the last episode being last Sunday Will consider alternative measures to avoid further weight loss Modified barium swallow found aspiration all the way up to pudding thick Dobbhoff placed Tube feeding started Weight loss is significant at this time and appears to be about 20lbs in a month GI consulted thank you Consider a GJ tube- will need transfer for this (3) Hypokalemia: Code(s): E87.6 - Hypokalemia Status: Acute Assessment and Plan: K 4.0 currently Trend Replace as needed (4) Gastroparesis due to DM: Code(s): E11.43 - Type 2 diabetes mellitus with diabetic autonomic (poly)neuropathy; K31.84 - Gastroparesis Status: Acute Assessment and Plan: To have small meals throughout the day change raglan to erythromycin Consult GI Dobbhoff placed Tube feeding initiated PEG tube placement scheduled for today (5) Nausea and vomiting: Code(s): R11.2 - Nausea with vomiting, unspecified Status: Acute Assessment and Plan: Zofran PRN and erythromycin 250mg PO AC Supportive care (6) Esophagitis: Code(s): K20.90 - Esophagitis, unspecified without bleeding Status: Acute Assessment and Plan: Continue sucralfate PEG tube will be placed today (7) Type 1 diabetes mellitus with hyperglycemia: Code(s): E10.65 - Type 1 diabetes mellitus with hyperglycemia Status: Chronic Assessment and Plan: Current glucose 210 Accu-Cheks Q4hr lantus 10 units Daily, aspart 4 units Q6hr, increase lantus to 15 units Daily With the tube feeding insulin should be adjusted trend glucose Adjust medications as needed. (8) Hypertension: Code(s): I10 - Essential (primary) hypertension Status: Acute Assessment and Plan: blood pressure 126/65 continue lisinopril 2.5 mg p.o. daily trend blood pressures adjust medications as needed (9) Aspiration into respiratory tract: Code(s): T17.908A - Unspecified foreign body in respiratory tract, part unspecified causing other injury, initial encounter Status: Acute Assessment and Plan: Aspiration precautions Subjective Date/time seen: 05/05/21 0835 Interval history: Date/Time: 05/03/21 20:32 Narrative: This is a 65-year-old male with past medical history significant for type 2 diabetes mellitus, dyslipidemia, dysphagia, aspiration pneumonia, G-tube placement and removal, protein calorie malnutrition, hypertension, gastroparesis, patient with recent admission to the hospital for intractable nausea and vomiting discharged home patient returns with same complaints having nausea and vomiting unable to keep anything down weight loss on wanted of 50 lb roughly patient feels very,weak,fatigued,short of breath, having dizziness. Patient states that he is willing to go to a detention if he needs to recover from his weight loss and malnutrition. He denies any fevers, any rigors, any chills ,any cough ,any sputum production, no diarrhea no abdominal pain. Preliminary workup was significant for a potassium of 2.8 a chloride of 78 BUN 43 creatinine of 1.4 glucose 338 a chest x-ray was significant for small amount of bibasilar pneumonia, with significant improvement compared to prior study, chronic hyperinflation. Patient carrero
[2021-05-05 08:53] LABS: Alanine Aminotransferase 13 U/L (4-50); Albumin Level 2.8 g/dL (3.5-5.1); Alkaline Phosphatase 76 U/L (38-126); Anion Gap 7 mmol/L (8-16); Aspartate Amino Transferase 22 U/L (17-59); Bilirubin,Total 0.4 mg/dL (0.2-1.3); Blood Urea Nitrogen 20 mg/dL (9-20); Calcium 8.4 mg/dL (8.4-10.2); Carbon Dioxide 31 mmol/L (22-30); Chloride 99 mmol/L (98-107); Estimated CRCL calculation 70 ml/min; Estimated Glomerular Filt Rate > 60; Glucose 238 mg/dL (65-110); Potassium 4.4 mmol/L (3.4-5.0); Sodium 137 mmol/L (137-145)
[2021-05-05] MEDS: INSULIN ASPART (*BKC) 100 UNITS/ML SUB-Q ×4 (09:06→23:39)
[2021-05-05] MEDS: POTASSIUM CHLORIDE 20 MEQ TABLET.ER 40 MEQ PO (09:07)
[2021-05-05] MEDS: lisinopriL 2.5 MG TABLET PO (09:07)
[2021-05-05] MEDS: PANTOPRAZOLE 40 MG TABLET PO ×2 (09:08→23:32)
--- NOTE | 2021-05-05 10:36 | PCNFU ---
Nutrition Follow-Up Complete: Unintended weight loss as related to gastroparesis/vomiting as evidenced by weight loss of 11 ibs in 3 weeks. Goal: Meet estimated nutritional needs Progressing towards goal. WE will continue current goal. Pt current nutrition is Glucerna 1.2 at 50 ml/hr over 22 hours, goal rate 70 ml/hr. Recommend: increasing goal rate to 80 ml/hr. Last recorded weight is 68 kg today, nursing reweighed with bed scale. Weight at admit 63 kg. Bowel Motility:+BM reported 05/04 Labs Reviewed:Glu 238, ALb 2.8,Hct 31.2,Hgb 10.1 Meds Noted:Carafate, KCL, Protonix, Prinivil, NovoLog Additional Notes: Nutrition follow up. Patient seen today, Dobbhoff in place. MBS yesterday-recommending non-oral feedings. Tube feedings of Glucerna 1.2 started, currently at 50 ml/hr increasing q 4 hours by 10 ml to goal rate of 70 ml/hr over 22 hours. Tube feedings will provide patient with 1848 kcals/92 gms protein/1240 ml water ,75% of caloric needs. Free water flush 50 ml q 4 hours. Will contact MD with nutritional recommendations. Monitoring: Will monitor every Sunday and Sunday.
[2021-05-05 12:26] LABS: Glucose Point of Care 224 mg/dl (65-105)
--- NOTE | 2021-05-05 16:25 | WPDGICN ---
Assessment and Plan Assessment and plan (1) Dysphagia: Qualifiers: Dysphagia type: unspecified Qualified Code(s): R13.10 - Dysphagia, unspecified Code(s): R13.10 - Dysphagia, unspecified Status: Acute Assessment and Plan: failure to thrive, previous hospitalization with aspiration pneumonia swallow study shows aspiration he used to have PEG few years ago. I talked to him and his sister, agreeable to have PEG placement again- understand that will help with nutrition but unfortunately can not prevent aspiration from oral secretions (2) Aspiration into respiratory tract: Code(s): T17.908A - Unspecified foreign body in respiratory tract, part unspecified causing other injury, initial encounter Status: Acute Assessment and Plan: aspiration precaution (3) Nausea and vomiting: Code(s): R11.2 - Nausea with vomiting, unspecified Status: Acute Assessment and Plan: uncontrolled dm, gastroparesis medical management (4) Gastroparesis due to DM: Code(s): E11.43 - Type 2 diabetes mellitus with diabetic autonomic (poly)neuropathy; K31.84 - Gastroparesis Status: Acute (5) Esophagitis: Code(s): K20.90 - Esophagitis, unspecified without bleeding Status: Acute Assessment and Plan: on ppi bid egd tomorrow with peg placement (6) Failure to thrive syndrome, adult: Code(s): R62.7 - Adult failure to thrive Status: Acute (7) Weight loss, non-intentional: Code(s): R63.4 - Abnormal weight loss Status: Acute (8) Hypokalemia: Code(s): E87.6 - Hypokalemia Status: Acute Assessment and Plan: treated GI Consult Note Consult date/time: 05/05/21 16:25 Reason for consult: dysphagia, aspiration HPI: Payam Mars is a 65 year old male with history of type 1 diabetes, gastroparesis, who had PEG placement about 6 years ago for probably about 2-3 months after had aspiration (this also was confirmed by his sister- talked to her by phone). I met him during recent hospitalization after recurrent nausea and vomiting, also has been in the hospital treated for multifocal pneumonia and evaluated by ID, COVID was rule out. EGD last month showed grade C reflux esophagitis with some food in stomach. He is back again with similar symptoms, vomiting after eating and also weight loss. Blood work showed low potassium of 2.8 (already treated), BUN 43, creatinine of 1.4, glucose 338. Chest x-ray reviewed- small amount of bibasilar pneumonia, with significant improvement compared to prior study. Barium swallow showed aspiration. Review of Systems Constitutional: Constitutional: Reports fatigue Eyes: Eyes: Denies blurry vision ENT: Reports Normal hearing present Cardiovascular: Cardiovascular: Denies chest pain Respiratory: Respiratory: Denies dyspnea Gastrointestinal: Gastrointestinal: Reports nausea and Reports vomiting Genitourinary: Genitourinary: Denies dysuria Musculoskeletal: Musculoskeletal: Denies neck pain Integumentary/Breasts: Skin/Breast: Denies dry skin Neurologic: Denies headache(s) Psychiatric: Psychiatric: Denies behavioral changes [facility] Past Medical History Medical History (Updated 05/05/21 @ 16:33 by Boaz Patricio MD) Aspiration into respiratory tract Dysphagia Encounter for feeding tube placement Esophagitis Gastroparesis due to DM History of gastrostomy tube placement Which has been removed Hyperlipidemia Leukocytosis SIRS (systemic inflammatory response syndrome) Type 1 diabetes mellitus with hyperglycemia Surgical History Surgical History H/O knee surgery Broken knee 12/2019 left knee History of cataract extraction Family History Family History Sibling Diabetes mellitus Family history of lung cancer Father Family history of cardiovascular disease
[2021-05-05 17:17] LABS: Glucose Point of Care 201 mg/dl (65-105)
[2021-05-05] MEDS: INSULIN GLARGINE (*BKC) 100 UNITS/ML 10 UNITS SUB-Q (23:31)
[2021-05-05] MEDS: PRAVASTATIN SODIUM 20 MG TABLET 80 MG PO (23:32)
[2021-05-05 23:59] LABS: Glucose Point of Care 221 mg/dl (65-105)
[2021-05-06] VITALS (15 sets, daily range): BP systolic 115–149; BP diastolic 61–91; PULSE 51–78; RESP 12–18; TEMP 36.2–37.1; O2SAT 95–100
[2021-05-06] MEDS: SUCRALFATE SUSP 100 MG/ML 10 ML UDC 1000 MG PO (04:02)
[2021-05-06] MEDS: ERYTHROMYCIN 250 MG TABLET PO (04:02)
[2021-05-06 05:42] LABS: Glucose Point of Care 202 mg/dl (65-105)
[2021-05-06 06:35] LABS: Basophils Absolute Auto 0.1 K/mm3 (0.0-0.1); Basophils Percent Auto 0.9 % (0.2-1.2); Eosinophils Absolute Auto 0.2 K/mm3 (0-0.3); Eosinophils Percent Auto 2.8 % (0-4.4); Hematocrit 31.3 % (42.0-52.0); Hemoglobin 10.1 g/dL (14.0-18.0); Immature Granulocyte Absolute 0.02 K/mm3 (0.00-0.031); Immature Granulocyte Percent A 0.3 % (0-0.5); Immature Platelet Fraction Pct 3.9 % (0.9-11.2); Lymphocytes Absolute Auto 0.95 K/mm3 (0.9-3.2); Lymphocytes Percent Auto 13.8 % (18.3-44.2); Mean Corpuscular HGB Conc 32.3 g/dl (32-36); Mean Corpuscular Hemoglobin 29.3 pg (26-34); Mean Corpuscular Volume 90.7 fl (80-100); Mean Platelet Volume 10.3 fl (7.4-10.4); Monocytes Absolute Auto 0.5 K/mm3 (0.1-0.6); Monocytes Percent Auto 7.1 % (2.6-8.5); Neutrophils Absolute Auto 5.2 K/mm3 (1.3-6.7); Neutrophils Percent Auto 75.1 % (45.5-73.1); Platelet Count Result 134 k/mm3 (150-375); Red Blood Count 3.45 M/mm3 (4.6-6.20); Red Cell Distribution Width 13.2 % (11.5-14.5); White Blood Count 6.9 K/mm3 (4.5-10.0)
[2021-05-06 06:42] LABS: Alanine Aminotransferase 14 U/L (4-50); Albumin Level 2.7 g/dL (3.5-5.1); Alkaline Phosphatase 86 U/L (38-126); Anion Gap 5 mmol/L (8-16); Aspartate Amino Transferase 19 U/L (17-59); Bilirubin,Total 0.3 mg/dL (0.2-1.3); Blood Urea Nitrogen 22 mg/dL (9-20); Calcium 8.2 mg/dL (8.4-10.2); Carbon Dioxide 30 mmol/L (22-30); Chloride 100 mmol/L (98-107); Estimated CRCL calculation 80 ml/min; Estimated Glomerular Filt Rate > 60; Glucose 210 mg/dL (65-110); Magnesium 1.7 mg/dL (1.6-2.3); Sodium 135 mmol/L (137-145)
[2021-05-06] MEDS: lisinopriL 2.5 MG TABLET PO (09:21)
[2021-05-06 10:55] LABS: Glucose Point of Care 144 mg/dl (65-105)
[2021-05-06] MEDS: LACTATED RINGERS 1,000 ML 150 ML IV CONT (11:04)
--- NOTE | 2021-05-06 11:19 | PCNFU ---
Addendum entered by Romy Watt, ANTIONETTE, LDN 05/06/21 12:57: Formula type of Glucerna 1.2 is recommended to help minimize blood sugar response compared to high glycemic carbohydrate formulas. Original Note: Nutrition Follow-Up Complete: Unintended weight loss as related to gastroparesis/vomiting as evidenced by weight loss of 11 ibs in 3 weeks. goal: Meet estimated nutritional needs Progressing towards goal. We will continue current goal. Pt current nutrition is NPO. Last recorded weight is 68 kg. Bowel Motility:+BM reported 05/05 Labs Reviewed:Glu 210, BUN 22, Na 135, Alb 2.7,Hgb 10.1,Hct 31.3 Meds Noted:Carafate, Prinivil, LR, Lantus, NovoLog, E-Mycin. Additional Notes: Nutrition follow up. Patient seen today. NPO for PEG placement. Recommend Tube feedings of Glucerna 1.2 at 80 ml/hr and discontinue IV fluids. Goal rate at 80 ml/hr will provide 2112 kcals/106 gms protein/1417 ml water. Bolus feeding Recommendations: Glucerna 1.2-450ml 4 x daily providing 2160 kcals/108 gms protein/1449 ml water. 100 ml free water flush. Monitoring: every Sunday and Sunday.
--- NOTE | 2021-05-06 11:53 | WPDANESEPPF ---
Anes - Initial Pre Proc Eval Procedure: Operation Date: 05/06/21 12:30 Proposed Procedures p Esophagogastroduodenoscopy - Boaz Patricio MD s Percutaneous Endoscopic Gastrostomy - Boaz Patricio MD Date/Time: 05/06/21 11:53 Surgeon: Rmaón Tracy MD Pre Op Diagnosis: Malnutrition, Hypokalemia, Acute Kidney Injury Patient Data Age: 65 Gender: M Height: 1.85 m Weight: 63 kg Last Vital Signs Temp 37.1 C 05/06/21 10:58 Pulse 56 L 05/06/21 10:58 Resp 15 05/06/21 10:58 BP 115/71 05/06/21 10:58 Pulse Ox 96 05/06/21 10:58 Allergies Allergy/AdvReac Type Severity Reaction Status Date / Time No Known Allergies Allergy Verified 05/06/21 10:56 Home Medications Medication Instructions Recorded Confirmed Type blood sugar diagnostic #100 each 08/14/19 05/03/21 Rx lancets 26 gauge #100 each 03/01/20 05/03/21 Rx blood-glucose meter,continuous #1 each 04/05/20 05/03/21 Rx blood-glucose transmitter #1 each 04/05/20 05/03/21 Rx pen needle, diabetic 32 gauge x #400 ea 02/02/21 05/03/21 Rx 5/32 Dexcom G6 Sensor 03/25/21 05/03/21 History lisinopril [Zestril] 2.5 mg PO DAILY 03/25/21 05/03/21 History pravastatin 80 mg tablet 80 mg PO HS #90 tablet 04/11/21 05/03/21 Rx levofloxacin 750 mg PO DAILY #5 tablet 04/13/21 05/03/21 Rx metoclopramide HCl [Reglan] 10 mg PO ACHS 30 Days #120 tablet 04/13/21 05/03/21 Rx pantoprazole 40 mg PO Q12HR #60 tablet 04/13/21 05/03/21 Rx sucralfate 1,000 mg PO ACHS 60 Days #2400 ml 04/13/21 05/03/21 Rx blood-glucose sensor #3 each 04/18/21 05/03/21 Rx insulin lispro 100 unit/mL 6 unit SUBCUT TID 90 Days #18 ml 10/20/21 11/03/21 Rx subcutaneous pen insulin glargine [Melisaaglrobyn MackikPen 18 unit SUBCUT HS 05/04/21 05/04/21 History U-100 Insulin] Laboratory Tests 05/05/21 05/05/21 05/05/21 12:06 17:10 23:31 WBC RBC Hgb Hct MCV MCH MCHC RDW Plt Count MPV Immature Gran % (Auto) Neut % (Auto) Lymph % (Auto) Wilkin % (Auto) Eos % (Auto) Baso % (Auto) Lymph # (Auto) Wilkin # (Auto) Eos # (Auto) Baso # (Auto) Abs Immat Gran (auto) Absolute Neuts (auto) Absolute Nucleated RBC Nucleated RBC % % Immature Plt Fraction Sodium Potassium Chloride Carbon Dioxide Anion Gap BUN Creatinine Estim Creat Clear Calc Estimated GFR Glucose POC Capillary Glucose 224 mg/dl H mg/dl 201 mg/dl H mg/dl 221 mg/dl H mg/dl (65-105) (65-105) (65-105) Calcium Magnesium Total Bilirubin AST ALT Alkaline Phosphatase Total Protein Albumin 05/06/21 05/06/21 05/06/21 05:36 06:24 06:25 WBC 6.9 K/mm3 K/mm3 (4.5-10.0) RBC 3.45 M/mm3 L M/mm3 (4.6-6.20) Hgb 10.1 g/dL L g/dL (14.0-18.0) Hct 31.3 % L % (42.0-52.0) MCV 90.7 fl fl (80-100) MCH 29.3 pg pg (26-34) MCHC 32.3 g/dl g/dl (32-36) RDW 13.2 % % (11.5-14.5) Plt Count 134 k/mm3 L k/mm3 (150-375) MPV 10.3 fl fl (7.4-10.4) Immature Gran % (Auto) 0.3 % % (0-0.5) Neut % (Auto) 75.1 % H % (45.5-73.1) Lymph % (Auto) 13.8 % L % (18.3-44.2) Wilkin % (Auto) 7.1 % % (2.6-8.5) Eos % (Auto) 2.8 % % (0-4.4) Baso % (Auto) 0.9 % % (0.2-1.2) Lymph # (Auto) 0.95 K/mm3 K/mm3 (0.9-3.2) Wilkin # (Auto) 0.5 K/mm3 K/mm3 (0.1-0.6) Eos # (Auto) 0.2 K/mm3 K/mm3 (0-0.3) Baso # (Auto) 0.1 K/
--- NOTE | 2021-05-06 13:00 | P.PNIM_ITS ---
Progress Note: A&P Assessment and Plan (1) Failure to thrive syndrome, adult: Code(s): R62.7 - Adult failure to thrive Status: Acute Assessment and Plan: * According to the nurses educator the patient has lost 20lbs over the last month * consult dietitian thank you * G-tube placed with tube feedings * He will be required to be on tube feedings greater than 90 days * daily weights * encourage PO intake * benefit from dietary supplements * PT OT consult (2) Weight loss, non-intentional: Code(s): R63.4 - Abnormal weight loss Status: Acute Assessment and Plan: * Patient with intractable nausea and vomiting with the last episode being last Sunday * Will consider alternative measures to avoid further weight loss * Modified barium swallow found aspiration all the way up to pudding thick * Tube feeding will continue when ok with GI to use your G-Tube * Weight loss is significant at this time and appears to be about 20lbs in a month * GI consulted thank you * G-tube placed today (3) Hypokalemia: Code(s): E87.6 - Hypokalemia Status: Acute Assessment and Plan: * K 4.0 currently * Trend * Replace as needed * Getting 40mg PO daily scheduled (4) Gastroparesis due to DM: Code(s): E11.43 - Type 2 diabetes mellitus with diabetic autonomic (poly)neuropathy; K31.84 - Gastroparesis Status: Acute Assessment and Plan: * Will need continuous feedings that should be converted to bolus feedings. * change raglan to erythromycin * Consult GI * Tube feeding initiated * PEG tube placement scheduled for today (5) Nausea and vomiting: Code(s): R11.2 - Nausea with vomiting, unspecified Status: Acute Assessment and Plan: * Vomiting post g tube placement * Could be related to the anesthesia * Zofran PRN and erythromycin 250mg PO AC * Supportive care (6) Esophagitis: Code(s): K20.90 - Esophagitis, unspecified without bleeding Status: Acute Assessment and Plan: * Continue sucralfate * PEG tube was placed today (7) Type 1 diabetes mellitus with hyperglycemia: Code(s): E10.65 - Type 1 diabetes mellitus with hyperglycemia Status: Chronic Assessment and Plan: * Current glucose 210 * Accu-Cheks Q4hr * lantus 10 units Daily, aspart 4 units Q6hr, increase lantus to 15 units Daily * With the tube feeding insulin should be adjusted * trend glucose * Adjust medications as needed. (8) Hypertension: Code(s): I10 - Essential (primary) hypertension Status: Acute Assessment and Plan: * blood pressure 123/76 * continue lisinopril 2.5 mg p.o. daily * trend blood pressures * adjust medications as needed (9) Aspiration into respiratory tract: Code(s): T17.908A - Unspecified foreign body in respiratory tract, part unspecified causing other injury, initial encounter Status: Acute Assessment and Plan: * Aspiration precautions Time Spent With Patient Time with patient: Greater than 35 minutes Subjective Date/time seen: 05/06/21 1300 Interval history: Date/Time: 05/03/21 20:32 Narrative: This is a 65-year-old male with past medical history significant for type 2 diabetes mellitus, dyslipidemia, dysphagia, aspiration pneumonia, G-tube placement and removal, protein ca
--- NOTE | 2021-05-06 13:00 | PM.IMPN ---
Progress Note: A&P Assessment and Plan (1) Failure to thrive syndrome, adult: Code(s): R62.7 - Adult failure to thrive Status: Acute Assessment and Plan: According to the hospice educator the patient has lost 20lbs over the last month consult dietitian thank you G-tube placed with tube feedings He will be required to be on tube feedings greater than 90 days daily weights encourage PO intake benefit from dietary supplements PT OT consult (2) Weight loss, non-intentional: Code(s): R63.4 - Abnormal weight loss Status: Acute Assessment and Plan: Patient with intractable nausea and vomiting with the last episode being last Sunday Will consider alternative measures to avoid further weight loss Modified barium swallow found aspiration all the way up to pudding thick Tube feeding will continue when ok with GI to use your G-Tube Weight loss is significant at this time and appears to be about 20lbs in a month GI consulted thank you G-tube placed today (3) Hypokalemia: Code(s): E87.6 - Hypokalemia Status: Acute Assessment and Plan: K 4.0 currently Trend Replace as needed Getting 40mg PO daily scheduled (4) Gastroparesis due to DM: Code(s): E11.43 - Type 2 diabetes mellitus with diabetic autonomic (poly)neuropathy; K31.84 - Gastroparesis Status: Acute Assessment and Plan: Will need continuous feedings that should be converted to bolus feedings. change raglan to erythromycin Consult GI Tube feeding initiated PEG tube placement scheduled for today (5) Nausea and vomiting: Code(s): R11.2 - Nausea with vomiting, unspecified Status: Acute Assessment and Plan: Vomiting post g tube placement Could be related to the anesthesia Zofran PRN and erythromycin 250mg PO AC Supportive care (6) Esophagitis: Code(s): K20.90 - Esophagitis, unspecified without bleeding Status: Acute Assessment and Plan: Continue sucralfate PEG tube was placed today (7) Type 1 diabetes mellitus with hyperglycemia: Code(s): E10.65 - Type 1 diabetes mellitus with hyperglycemia Status: Chronic Assessment and Plan: Current glucose 210 Accu-Cheks Q4hr lantus 10 units Daily, aspart 4 units Q6hr, increase lantus to 15 units Daily With the tube feeding insulin should be adjusted trend glucose Adjust medications as needed. (8) Hypertension: Code(s): I10 - Essential (primary) hypertension Status: Acute Assessment and Plan: blood pressure 123/76 continue lisinopril 2.5 mg p.o. daily trend blood pressures adjust medications as needed (9) Aspiration into respiratory tract: Code(s): T17.908A - Unspecified foreign body in respiratory tract, part unspecified causing other injury, initial encounter Status: Acute Assessment and Plan: Aspiration precautions Time Spent With Patient Time with patient: Greater than 35 minutes Subjective Date/time seen: 05/06/21 1300 Interval history: Date/Time: 05/03/21 20:32 Narrative: This is a 65-year-old male with past medical history significant for type 2 diabetes mellitus, dyslipidemia, dysphagia, aspiration pneumonia, G-tube placement and removal, protein calorie malnutrition, hypertension, gastroparesis, patient with recent admission to the hospital for intractable nausea and vomiting discharged home patient returns with same complaints having nausea and vomiting unable to keep anything down weight loss on wanted of 50 lb roughly patient feels very,weak,fatigued,short of breath, having dizziness. Patient states that he is willing to go to a residential if he needs to recover from his weight loss and malnutrition. He denies any fevers, any rigors, any chills ,any cough ,any sputum production, no diarrhea no abdominal pain. Preliminary work
--- NOTE | 2021-05-06 13:42 | SUR.PHASEII ---
post procedure temp 98.2
[2021-05-06] MEDS: ONDANSETRON INJ 4 MG/2 ML VIAL IV PUSH (15:52)
[2021-05-06 18:23] LABS: Glucose Point of Care 84 mg/dl (65-105)
[2021-05-06] MEDS: PRAVASTATIN SODIUM 20 MG TABLET 80 MG FEED TUBE (20:37)
[2021-05-06] MEDS: SUCRALFATE SUSP 100 MG/ML 10 ML UDC 1000 MG FEED TUBE (20:37)
[2021-05-06 21:24] LABS: Glucose Point of Care 71 mg/dl (65-105)
[2021-05-07] VITALS (10 sets, daily range): BP systolic 102–136; BP diastolic 62–74; PULSE 54–67; RESP 16–18; TEMP 36–37.9; O2SAT 95–97
[2021-05-07 00:19] LABS: Glucose Point of Care 80 mg/dl (65-105)
[2021-05-07] MEDS: SUCRALFATE SUSP 100 MG/ML 10 ML UDC 1000 MG FEED TUBE ×4 (05:22→20:48)
[2021-05-07] MEDS: ERYTHROMYCIN 250 MG TABLET XX ×3 (05:22→17:03)
[2021-05-07] MEDS: LANSOPRAZOLE ORAL SUSP 30 MG/10 ML ORAL.SUSP FEED TUBE (05:22)
[2021-05-07 05:59] LABS: Glucose Point of Care 122 mg/dl (65-105)
[2021-05-07] MEDS: POTASSIUM CHLORIDE 20 MEQ PACKET (FOR LIQUID) 40 MEQ PO (08:35)
[2021-05-07] MEDS: lisinopriL 2.5 MG TABLET PO (08:35)
[2021-05-07 08:46] LABS: Basophils Percent Auto 0.5 % (0.2-1.2); Eosinophils Absolute Auto 0.1 K/mm3 (0-0.3); Eosinophils Percent Auto 1.6 % (0-4.4); Hematocrit 33.6 % (42.0-52.0); Hemoglobin 10.8 g/dL (14.0-18.0); Immature Granulocyte Absolute 0.01 K/mm3 (0.00-0.031); Immature Granulocyte Percent A 0.1 % (0-0.5); Lymphocytes Absolute Auto 0.88 K/mm3 (0.9-3.2); Lymphocytes Percent Auto 11.2 % (18.3-44.2); Mean Corpuscular HGB Conc 32.1 g/dl (32-36); Mean Corpuscular Hemoglobin 29.9 pg (26-34); Mean Corpuscular Volume 93.1 fl (80-100); Mean Platelet Volume 10.8 fl (7.4-10.4); Monocytes Absolute Auto 0.5 K/mm3 (0.1-0.6); Monocytes Percent Auto 6.2 % (2.6-8.5); Neutrophils Absolute Auto 6.3 K/mm3 (1.3-6.7); Neutrophils Percent Auto 80.4 % (45.5-73.1); Platelet Count Result 145 k/mm3 (150-375); Red Blood Count 3.61 M/mm3 (4.6-6.20); Red Cell Distribution Width 13.3 % (11.5-14.5); White Blood Count 7.9 K/mm3 (4.5-10.0)
[2021-05-07 08:54] LABS: Alanine Aminotransferase 12 U/L (4-50); Albumin Level 2.8 g/dL (3.5-5.1); Alkaline Phosphatase 65 U/L (38-126); Anion Gap 1 mmol/L (8-16); Aspartate Amino Transferase 17 U/L (17-59); Bilirubin,Total 0.4 mg/dL (0.2-1.3); Blood Urea Nitrogen 22 mg/dL (9-20); Calcium 8.3 mg/dL (8.4-10.2); Carbon Dioxide 33 mmol/L (22-30); Chloride 101 mmol/L (98-107); Estimated CRCL calculation 63 ml/min; Estimated Glomerular Filt Rate > 60; Glucose 192 mg/dL (65-110); Potassium 4.5 mmol/L (3.4-5.0); Sodium 135 mmol/L (137-145)
--- NOTE | 2021-05-07 11:34 | PM.IMPN ---
Progress Note: A&P Assessment and Plan (1) Failure to thrive syndrome, adult: Code(s): R62.7 - Adult failure to thrive Status: Acute Assessment and Plan: According to the operations boardman the patient has lost 20lbs over the last month consult dietitian thank you G-tube placed with tube feedings He will be required to be on tube feedings greater than 90 days daily weights encourage PO intake benefit from dietary supplements PT OT consult (2) Weight loss, non-intentional: Code(s): R63.4 - Abnormal weight loss Status: Acute Assessment and Plan: Patient with intractable nausea and vomiting with the last episode being last Sunday Modified barium swallow found aspiration all the way up to pudding thick Tube feeding at 60 ml/hr with a goal of 80 ml/hr Weight loss is significant at this time and appears to be about 20lbs in a month GI consulted thank you G-tube placed today (3) Hypokalemia: Code(s): E87.6 - Hypokalemia Status: Acute Assessment and Plan: K 4.5 currently Trend labs Replace as needed Stopped 40mg PO daily scheduled (4) Gastroparesis due to DM: Code(s): E11.43 - Type 2 diabetes mellitus with diabetic autonomic (poly)neuropathy; K31.84 - Gastroparesis Status: Acute Assessment and Plan: Will need continuous feedings that should be converted to bolus feedings. change raglan to erythromycin Consult GI Tube feeding continued PEG tube placement scheduled for today (5) Nausea and vomiting: Code(s): R11.2 - Nausea with vomiting, unspecified Status: Acute Assessment and Plan: Seems to be resolved at this time Could be related to the anesthesia Zofran PRN and erythromycin 250mg PO AC Supportive care (6) Esophagitis: Code(s): K20.90 - Esophagitis, unspecified without bleeding Status: Acute Assessment and Plan: Continue sucralfate PEG tube was placed yesterday (7) Type 1 diabetes mellitus with hyperglycemia: Code(s): E10.65 - Type 1 diabetes mellitus with hyperglycemia Status: Chronic Assessment and Plan: Current glucose 192 Accu-Cheks Q4hr Lantus 15 units Daily, aspart 4 units Q6hr With the tube feeding insulin should be adjusted trend glucose Adjust medications as needed. (8) Hypertension: Code(s): I10 - Essential (primary) hypertension Status: Acute Assessment and Plan: blood pressure 123/69 continue lisinopril 2.5 mg p.o. daily trend blood pressures adjust medications as needed (9) Aspiration into respiratory tract: Code(s): T17.908A - Unspecified foreign body in respiratory tract, part unspecified causing other injury, initial encounter Status: Acute Assessment and Plan: Aspiration precautions NPO HOB should be 30 degrees Time Spent With Patient Time with patient: Greater than 35 minutes Subjective Date/time seen: 05/07/21 11:34 Interval history: Date/Time: 05/03/21 20:32 Narrative: This is a 65-year-old male with past medical history significant for type 2 diabetes mellitus, dyslipidemia, dysphagia, aspiration pneumonia, G-tube placement and removal, protein calorie malnutrition, hypertension, gastroparesis, patient with recent admission to the hospital for intractable nausea and vomiting discharged home patient returns with same complaints having nausea and vomiting unable to keep anything down weight loss on wanted of 50 lb roughly patient feels very,weak,fatigued,short of breath, having dizziness. Patient states that he is willing to go to a [facility] if he needs to recover from his weight loss and malnutrition. He denies any fevers, any rigors, any chills ,any cough ,any sputum production, no diarrhea no abdominal pain. Preliminary workup was significant for a potassium of 2.8 a chloride of 78 BUN 43 crea
--- NOTE | 2021-05-07 11:34 | P.PNIM_ITS ---
Progress Note: A&P Assessment and Plan (1) Failure to thrive syndrome, adult: Code(s): R62.7 - Adult failure to thrive Status: Acute Assessment and Plan: * According to the clinical staff educator the patient has lost 20lbs over the last month * consult dietitian thank you * G-tube placed with tube feedings * He will be required to be on tube feedings greater than 90 days * daily weights * encourage PO intake * benefit from dietary supplements * PT OT consult (2) Weight loss, non-intentional: Code(s): R63.4 - Abnormal weight loss Status: Acute Assessment and Plan: * Patient with intractable nausea and vomiting with the last episode being last Sunday * Modified barium swallow found aspiration all the way up to pudding thick * Tube feeding at 60 ml/hr with a goal of 80 ml/hr * Weight loss is significant at this time and appears to be about 20lbs in a month * GI consulted thank you * G-tube placed today (3) Hypokalemia: Code(s): E87.6 - Hypokalemia Status: Acute Assessment and Plan: * K 4.5 currently * Trend labs * Replace as needed * Stopped 40mg PO daily scheduled (4) Gastroparesis due to DM: Code(s): E11.43 - Type 2 diabetes mellitus with diabetic autonomic (poly)neuropathy; K31.84 - Gastroparesis Status: Acute Assessment and Plan: * Will need continuous feedings that should be converted to bolus feedings. * change raglan to erythromycin * Consult GI * Tube feeding continued * PEG tube placement scheduled for today (5) Nausea and vomiting: Code(s): R11.2 - Nausea with vomiting, unspecified Status: Acute Assessment and Plan: * Seems to be resolved at this time * Could be related to the anesthesia * Zofran PRN and erythromycin 250mg PO AC * Supportive care (6) Esophagitis: Code(s): K20.90 - Esophagitis, unspecified without bleeding Status: Acute Assessment and Plan: * Continue sucralfate * PEG tube was placed yesterday (7) Type 1 diabetes mellitus with hyperglycemia: Code(s): E10.65 - Type 1 diabetes mellitus with hyperglycemia Status: Chronic Assessment and Plan: * Current glucose 192 * Accu-Cheks Q4hr * Lantus 15 units Daily, aspart 4 units Q6hr * With the tube feeding insulin should be adjusted * trend glucose * Adjust medications as needed. (8) Hypertension: Code(s): I10 - Essential (primary) hypertension Status: Acute Assessment and Plan: * blood pressure 123/69 * continue lisinopril 2.5 mg p.o. daily * trend blood pressures * adjust medications as needed (9) Aspiration into respiratory tract: Code(s): T17.908A - Unspecified foreign body in respiratory tract, part unspecified causing other injury, initial encounter Status: Acute Assessment and Plan: * Aspiration precautions * NPO * HOB should be 30 degrees Time Spent With Patient Time with patient: Greater than 35 minutes Subjective Date/time seen: 05/07/21 11:34 Interval history: Date/Time: 05/03/21 20:32 Narrative: This is a 65-year-old male with past medical history significant for type 2 diabetes mellitus, dyslipidemia, dysphagia, aspiration pneumonia, G-tube placement and removal, protein calorie malnutrition, hypertension, gastroparesis, patient with rec
[2021-05-07 12:22] LABS: Glucose Point of Care 219 mg/dl (65-105)
[2021-05-07] MEDS: ACETAMINOPHEN 500 MG TABLET 1000 MG PO (12:32)
[2021-05-07] MEDS: INSULIN ASPART (*BKC) 100 UNITS/ML SUB-Q ×2 (12:32→18:42)
[2021-05-07] MEDS: traMADol HCL (*CRX) 25 MG TABLET PO (17:02)
[2021-05-07 18:48] LABS: Glucose Point of Care 130 mg/dl (65-105)
[2021-05-07] MEDS: PRAVASTATIN SODIUM 20 MG TABLET 80 MG FEED TUBE (20:48)
[2021-05-07 23:01] LABS: Glucose Point of Care 132 mg/dl (65-105)
[2021-05-08] MEDS: INSULIN ASPART (*BKC) 100 UNITS/ML SUB-Q ×4 (01:00→17:05)
--- NOTE | 2021-05-08 01:59 | PC.NURSE ---
Daylight Savings Time For Daylight Savings Time Ending in the Fall - Clocks are moved back. For Daylight Savings Time Beginning in the Spring - Clocks are moved ahead. For [facility], the time of change occurs at 0200 hrs. Time is taken from the service observer chief. This entry on the patient's chart recognizes the change in time reflected during documentation. Example: 2 entries for vital signs may be charted for 0200 hrs.
[2021-05-08 02:00] LABS: Glucose Point of Care 182 mg/dl (65-105)
[2021-05-08] MEDS: ERYTHROMYCIN 250 MG TABLET XX ×3 (05:40→17:05)
[2021-05-08] MEDS: SUCRALFATE SUSP 100 MG/ML 10 ML UDC 1000 MG FEED TUBE ×4 (05:40→20:39)
[2021-05-08] MEDS: LANSOPRAZOLE ORAL SUSP 30 MG/10 ML ORAL.SUSP FEED TUBE (05:40)
[2021-05-08 06:00] VITALS: BP 132/73; PULSE 57; RESP 14; TEMP 36.5; O2SAT 96
[2021-05-08 06:04] LABS: Glucose Point of Care 187 mg/dl (65-105)
[2021-05-08 08:00] VITALS: PULSE 57; RESP 14; O2SAT 96
[2021-05-08 08:20] LABS: Alanine Aminotransferase 13 U/L (4-50); Albumin Level 3.1 g/dL (3.5-5.1); Alkaline Phosphatase 89 U/L (38-126); Anion Gap 3 mmol/L (8-16); Aspartate Amino Transferase 21 U/L (17-59); Bilirubin,Total 0.2 mg/dL (0.2-1.3); Blood Urea Nitrogen 22 mg/dL (9-20); Calcium 8.4 mg/dL (8.4-10.2); Carbon Dioxide 33 mmol/L (22-30); Chloride 99 mmol/L (98-107); Estimated CRCL calculation 80 ml/min; Estimated Glomerular Filt Rate > 60; Glucose 186 mg/dL (65-110); Potassium 4.4 mmol/L (3.4-5.0); Sodium 135 mmol/L (137-145)
[2021-05-08 08:33] LABS: Basophils Percent Auto 0.7 % (0.2-1.2); Eosinophils Absolute Auto 0.2 K/mm3 (0-0.3); Eosinophils Percent Auto 3.7 % (0-4.4); Hemoglobin 11.3 g/dL (14.0-18.0); Immature Granulocyte Absolute 0.02 K/mm3 (0.00-0.031); Immature Granulocyte Percent A 0.4 % (0-0.5); Lymphocytes Percent Auto 12.4 % (18.3-44.2); Mean Corpuscular HGB Conc 31.4 g/dl (32-36); Mean Corpuscular Hemoglobin 29.4 pg (26-34); Mean Corpuscular Volume 93.8 fl (80-100); Mean Platelet Volume 11.1 fl (7.4-10.4); Monocytes Absolute Auto 0.4 K/mm3 (0.1-0.6); Monocytes Percent Auto 6.9 % (2.6-8.5); Neutrophils Absolute Auto 4.3 K/mm3 (1.3-6.7); Neutrophils Percent Auto 75.9 % (45.5-73.1); Platelet Count Result 146 k/mm3 (150-375); Red Blood Count 3.84 M/mm3 (4.6-6.20); Red Cell Distribution Width 13.5 % (11.5-14.5); White Blood Count 5.7 K/mm3 (4.5-10.0)
[2021-05-08] MEDS: lisinopriL 2.5 MG TABLET PO (10:01)
--- NOTE | 2021-05-08 11:00 | PM.IMPN ---
Progress Note: A&P Assessment and Plan (1) Failure to thrive syndrome, adult: Code(s): R62.7 - Adult failure to thrive Status: Acute Assessment and Plan: According to the educator senior clinical the patient has lost 20lbs over the last month consult dietitian thank you G-tube placed with tube feedings He will be required to be on tube feedings greater than 90 days daily weights encourage PO intake PT OT consult (2) Weight loss, non-intentional: Code(s): R63.4 - Abnormal weight loss Status: Acute Assessment and Plan: Patient with intractable nausea and vomiting with the last episode being last Sunday Modified barium swallow found aspiration all the way up to pudding thick Tube feeding at 80 ml/hr with a goal of 80 ml/hr Weight loss is significant at this time and appears to be about 20lbs in a month GI consulted thank you G-tube placed 05/06/21 (3) Hypokalemia: Code(s): E87.6 - Hypokalemia Status: Acute Assessment and Plan: K 4.4 currently Trend labs Replace as needed Stopped 40mg PO daily scheduled (4) Gastroparesis due to DM: Code(s): E11.43 - Type 2 diabetes mellitus with diabetic autonomic (poly)neuropathy; K31.84 - Gastroparesis Status: Acute Assessment and Plan: Will need continuous feedings that should be converted to bolus feedings. change raglan to erythromycin Consult GI Tube feeding continued PEG tube placement (5) Nausea and vomiting: Code(s): R11.2 - Nausea with vomiting, unspecified Status: Acute Assessment and Plan: Seems to be resolved at this time Could be related to the anesthesia Zofran PRN and erythromycin 250mg PO AC Supportive care (6) Esophagitis: Code(s): K20.90 - Esophagitis, unspecified without bleeding Status: Acute Assessment and Plan: Continue sucralfate PEG tube was placed yesterday (7) Type 1 diabetes mellitus with hyperglycemia: Code(s): E10.65 - Type 1 diabetes mellitus with hyperglycemia Status: Chronic Assessment and Plan: Current glucose 186 Accu-Cheks Q4hr Lantus 15 units Daily, aspart 4 units Q6hr With the tube feeding insulin should be adjusted trend glucose Adjust medications as needed. (8) Hypertension: Code(s): I10 - Essential (primary) hypertension Status: Acute Assessment and Plan: blood pressure 132/73 continue lisinopril 2.5 mg p.o. daily trend blood pressures adjust medications as needed (9) Aspiration into respiratory tract: Code(s): T17.908A - Unspecified foreign body in respiratory tract, part unspecified causing other injury, initial encounter Status: Acute Assessment and Plan: Aspiration precautions NPO HOB should be 30 degrees Time Spent With Patient Time with patient: Greater than 35 minutes Subjective Date/time seen: 05/08/21 11:00 Interval history: Date/Time: 05/03/21 20:32 Narrative: This is a 65-year-old male with past medical history significant for type 2 diabetes mellitus, dyslipidemia, dysphagia, aspiration pneumonia, G-tube placement and removal, protein calorie malnutrition, hypertension, gastroparesis, patient with recent admission to the hospital for intractable nausea and vomiting discharged home patient returns with same complaints having nausea and vomiting unable to keep anything down weight loss on wanted of 50 lb roughly patient feels very,weak,fatigued,short of breath, having dizziness. Patient states that he is willing to go to a [facility] if he needs to recover from his weight loss and malnutrition. He denies any fevers, any rigors, any chills ,any cough ,any sputum production, no diarrhea no abdominal pain. Preliminary workup was significant for a potassium of 2.8 a chloride of 78 BUN 43 creatinine of 1.4 glucose 338 a chest x-ray was significant
--- NOTE | 2021-05-08 11:00 | P.PNIM_ITS ---
Progress Note: A&P Assessment and Plan (1) Failure to thrive syndrome, adult: Code(s): R62.7 - Adult failure to thrive Status: Acute Assessment and Plan: * According to the patient educator the patient has lost 20lbs over the last month * consult dietitian thank you * G-tube placed with tube feedings * He will be required to be on tube feedings greater than 90 days * daily weights * encourage PO intake * PT OT consult (2) Weight loss, non-intentional: Code(s): R63.4 - Abnormal weight loss Status: Acute Assessment and Plan: * Patient with intractable nausea and vomiting with the last episode being last Sunday * Modified barium swallow found aspiration all the way up to pudding thick * Tube feeding at 80 ml/hr with a goal of 80 ml/hr * Weight loss is significant at this time and appears to be about 20lbs in a month * GI consulted thank you * G-tube placed 05/06/21 (3) Hypokalemia: Code(s): E87.6 - Hypokalemia Status: Acute Assessment and Plan: * K 4.4 currently * Trend labs * Replace as needed * Stopped 40mg PO daily scheduled (4) Gastroparesis due to DM: Code(s): E11.43 - Type 2 diabetes mellitus with diabetic autonomic (poly)neuropathy; K31.84 - Gastroparesis Status: Acute Assessment and Plan: * Will need continuous feedings that should be converted to bolus feedings. * change raglan to erythromycin * Consult GI * Tube feeding continued * PEG tube placement (5) Nausea and vomiting: Code(s): R11.2 - Nausea with vomiting, unspecified Status: Acute Assessment and Plan: * Seems to be resolved at this time * Could be related to the anesthesia * Zofran PRN and erythromycin 250mg PO AC * Supportive care (6) Esophagitis: Code(s): K20.90 - Esophagitis, unspecified without bleeding Status: Acute Assessment and Plan: * Continue sucralfate * PEG tube was placed yesterday (7) Type 1 diabetes mellitus with hyperglycemia: Code(s): E10.65 - Type 1 diabetes mellitus with hyperglycemia Status: Chronic Assessment and Plan: * Current glucose 186 * Accu-Cheks Q4hr * Lantus 15 units Daily, aspart 4 units Q6hr * With the tube feeding insulin should be adjusted * trend glucose * Adjust medications as needed. (8) Hypertension: Code(s): I10 - Essential (primary) hypertension Status: Acute Assessment and Plan: * blood pressure 132/73 * continue lisinopril 2.5 mg p.o. daily * trend blood pressures * adjust medications as needed (9) Aspiration into respiratory tract: Code(s): T17.908A - Unspecified foreign body in respiratory tract, part unspecified causing other injury, initial encounter Status: Acute Assessment and Plan: * Aspiration precautions * NPO * HOB should be 30 degrees Time Spent With Patient Time with patient: Greater than 35 minutes Subjective Date/time seen: 05/08/21 11:00 Interval history: Date/Time: 05/03/21 20:32 Narrative: This is a 65-year-old male with past medical history significant for type 2 diabetes mellitus, dyslipidemia, dysphagia, aspiration pneumonia, G-tube placement and removal, protein calorie malnutrition, hypertension, gastroparesis, patient with recent admission to the hospital for intractable nausea and vomi
[2021-05-08 12:03] LABS: Glucose Point of Care 183 mg/dl (65-105)
[2021-05-08 15:17] VITALS: BP 104/63; PULSE 78; RESP 18; TEMP 36.4; O2SAT 100
[2021-05-08 17:08] LABS: Glucose Point of Care 245 mg/dl (65-105)
[2021-05-08 18:50] VITALS: BP 126/71; PULSE 53; RESP 16; TEMP 36.6; O2SAT 100
[2021-05-08] MEDS: PRAVASTATIN SODIUM 20 MG TABLET 80 MG FEED TUBE (20:39)
[2021-05-08] MEDS: INSULIN GLARGINE (*BKC) 100 UNITS/ML 15 UNITS SUB-Q (20:39)
[2021-05-08 21:02] LABS: Glucose Point of Care 190 mg/dl (65-105)
[2021-05-09 00:05] LABS: Glucose Point of Care 185 mg/dl (65-105)
[2021-05-09 05:46] VITALS: BP 127/67; PULSE 64; RESP 12; TEMP 36.6; O2SAT 94
[2021-05-09] MEDS: SUCRALFATE SUSP 100 MG/ML 10 ML UDC 1000 MG FEED TUBE ×2 (06:14→09:27)
[2021-05-09] MEDS: LANSOPRAZOLE ORAL SUSP 30 MG/10 ML ORAL.SUSP FEED TUBE (06:15)
[2021-05-09] MEDS: ERYTHROMYCIN 250 MG TABLET XX ×2 (06:15→09:27)
[2021-05-09] MEDS: INSULIN ASPART (*BKC) 100 UNITS/ML SUB-Q (06:16)
[2021-05-09 06:17] LABS: Glucose Point of Care 239 mg/dl (65-105)
[2021-05-09 06:54] LABS: Basophils Percent Auto 0.5 % (0.2-1.2); Eosinophils Absolute Auto 0.2 K/mm3 (0-0.3); Eosinophils Percent Auto 4.9 % (0-4.4); Hematocrit 31.7 % (42.0-52.0); Hemoglobin 10.3 g/dL (14.0-18.0); Immature Granulocyte Absolute 0.01 K/mm3 (0.00-0.031); Immature Granulocyte Percent A 0.3 % (0-0.5); Immature Platelet Fraction Pct 4.9 % (0.9-11.2); Lymphocytes Absolute Auto 0.36 K/mm3 (0.9-3.2); Lymphocytes Percent Auto 9.4 % (18.3-44.2); Mean Corpuscular HGB Conc 32.5 g/dl (32-36); Mean Corpuscular Hemoglobin 29.8 pg (26-34); Mean Corpuscular Volume 91.6 fl (80-100); Mean Platelet Volume 11.3 fl (7.4-10.4); Monocytes Absolute Auto 0.4 K/mm3 (0.1-0.6); Monocytes Percent Auto 9.6 % (2.6-8.5); Neutrophils Absolute Auto 2.9 K/mm3 (1.3-6.7); Neutrophils Percent Auto 75.3 % (45.5-73.1); Platelet Count Result 134 k/mm3 (150-375); Red Blood Count 3.46 M/mm3 (4.6-6.20); Red Cell Distribution Width 13.4 % (11.5-14.5); White Blood Count 3.9 K/mm3 (4.5-10.0)
[2021-05-09 07:09] LABS: Alanine Aminotransferase 17 U/L (4-50); Albumin Level 2.8 g/dL (3.5-5.1); Alkaline Phosphatase 99 U/L (38-126); Anion Gap 4 mmol/L (8-16); Aspartate Amino Transferase 25 U/L (17-59); Bilirubin,Total 0.2 mg/dL (0.2-1.3); Blood Urea Nitrogen 24 mg/dL (9-20); Calcium 8.3 mg/dL (8.4-10.2); Carbon Dioxide 31 mmol/L (22-30); Chloride 99 mmol/L (98-107); Estimated CRCL calculation 80 ml/min; Estimated Glomerular Filt Rate > 60; Glucose 261 mg/dL (65-110); Magnesium 1.9 mg/dL (1.6-2.3); Potassium 4.7 mmol/L (3.4-5.0); Sodium 134 mmol/L (137-145)
[2021-05-09] MEDS: lisinopriL 2.5 MG TABLET PO (09:26)
--- NOTE | 2021-05-09 09:40 | P.DS_ITS ---
DS: Admitting Diagnosis Discharge Date Date of service 05/09/2021 at 9:40 a.m. Admitting Diagnosis Unintentional weight loss, failure to thrive, gastroparesis DS: Discharge Diagnosis Discharge Diagnosis (1) Failure to thrive syndrome, adult: Code(s): R62.7 - Adult failure to thrive Status: Acute Assessment and Plan: * According to the music supervisor the patient has lost 20lbs over the last month * consult dietitian thank you * G-tube placed with tube feedings * He will be required to be on tube feedings greater than 90 days * daily weights * encourage PO intake * PT OT consult (2) Weight loss, non-intentional: Code(s): R63.4 - Abnormal weight loss Status: Acute Assessment and Plan: * Patient with intractable nausea and vomiting with the last episode being last Sunday * Modified barium swallow found aspiration all the way up to pudding thick * Tube feeding at 80 ml/hr with a goal of 80 ml/hr * Weight loss is significant at this time and appears to be about 20lbs in a month * GI consulted thank you * G-tube placed 05/06/21 (3) Hypokalemia: Code(s): E87.6 - Hypokalemia Status: Acute Assessment and Plan: * K 4.4 currently * Trend labs * Replace as needed * Stopped 40mg PO daily scheduled (4) Gastroparesis due to DM: Code(s): E11.43 - Type 2 diabetes mellitus with diabetic autonomic (poly)neuropathy; K31.84 - Gastroparesis Status: Acute Assessment and Plan: * Will need continuous feedings that should be converted to bolus feedings. * change raglan to erythromycin * Consult GI * Tube feeding continued * PEG tube placement (5) Nausea and vomiting: Code(s): R11.2 - Nausea with vomiting, unspecified Status: Acute Assessment and Plan: * Seems to be resolved at this time * Could be related to the anesthesia * Zofran PRN and erythromycin 250mg PO AC * Supportive care (6) Esophagitis: Code(s): K20.90 - Esophagitis, unspecified without bleeding Status: Acute Assessment and Plan: * Continue sucralfate * PEG tube was placed yesterday (7) Type 1 diabetes mellitus with hyperglycemia: Code(s): E10.65 - Type 1 diabetes mellitus with hyperglycemia Status: Chronic Assessment and Plan: * Current glucose 186 * Accu-Cheks Q4hr * Lantus 15 units Daily, aspart 4 units Q6hr * With the tube feeding insulin should be adjusted * trend glucose * Adjust medications as needed. (8) Hypertension: Code(s): I10 - Essential (primary) hypertension Status: Acute Assessment and Plan: * blood pressure 132/73 * continue lisinopril 2.5 mg p.o. daily * trend blood pressures * adjust medications as needed (9) Aspiration into respiratory tract: Code(s): T17.908A - Unspecified foreign body in respiratory tract, part unspecified causing other injury, initial encounter Status: Acute Assessment and Plan: * Aspiration precautions * NPO * HOB should be 30 degrees DS: Summary Hospital Course Hospital Course: Patient is 65-year-old male with past medical history diabetes, dyslipidemia, dysphagia, aspiration pneumonia, who presented to the ED from his primary care provider office for increased unintentional weight loss. It was noted the patient had a 20 lb weight loss wi
--- NOTE | 2021-05-09 09:40 | PM.DS ---
DS: Admitting Diagnosis Discharge Date Date of service 05/09/2021 at 9:40 a.m. Admitting Diagnosis Unintentional weight loss, failure to thrive, gastroparesis DS: Discharge Diagnosis Discharge Diagnosis (1) Failure to thrive syndrome, adult: Code(s): R62.7 - Adult failure to thrive Status: Acute Assessment and Plan: According to the hospice educator the patient has lost 20lbs over the last month consult dietitian thank you G-tube placed with tube feedings He will be required to be on tube feedings greater than 90 days daily weights encourage PO intake PT OT consult (2) Weight loss, non-intentional: Code(s): R63.4 - Abnormal weight loss Status: Acute Assessment and Plan: Patient with intractable nausea and vomiting with the last episode being last Sunday Modified barium swallow found aspiration all the way up to pudding thick Tube feeding at 80 ml/hr with a goal of 80 ml/hr Weight loss is significant at this time and appears to be about 20lbs in a month GI consulted thank you G-tube placed 05/06/21 (3) Hypokalemia: Code(s): E87.6 - Hypokalemia Status: Acute Assessment and Plan: K 4.4 currently Trend labs Replace as needed Stopped 40mg PO daily scheduled (4) Gastroparesis due to DM: Code(s): E11.43 - Type 2 diabetes mellitus with diabetic autonomic (poly)neuropathy; K31.84 - Gastroparesis Status: Acute Assessment and Plan: Will need continuous feedings that should be converted to bolus feedings. change raglan to erythromycin Consult GI Tube feeding continued PEG tube placement (5) Nausea and vomiting: Code(s): R11.2 - Nausea with vomiting, unspecified Status: Acute Assessment and Plan: Seems to be resolved at this time Could be related to the anesthesia Zofran PRN and erythromycin 250mg PO AC Supportive care (6) Esophagitis: Code(s): K20.90 - Esophagitis, unspecified without bleeding Status: Acute Assessment and Plan: Continue sucralfate PEG tube was placed yesterday (7) Type 1 diabetes mellitus with hyperglycemia: Code(s): E10.65 - Type 1 diabetes mellitus with hyperglycemia Status: Chronic Assessment and Plan: Current glucose 186 Accu-Cheks Q4hr Lantus 15 units Daily, aspart 4 units Q6hr With the tube feeding insulin should be adjusted trend glucose Adjust medications as needed. (8) Hypertension: Code(s): I10 - Essential (primary) hypertension Status: Acute Assessment and Plan: blood pressure 132/73 continue lisinopril 2.5 mg p.o. daily trend blood pressures adjust medications as needed (9) Aspiration into respiratory tract: Code(s): T17.908A - Unspecified foreign body in respiratory tract, part unspecified causing other injury, initial encounter Status: Acute Assessment and Plan: Aspiration precautions NPO HOB should be 30 degrees DS: Summary Hospital Course Hospital Course: Patient is 65-year-old male with past medical history diabetes, dyslipidemia, dysphagia, aspiration pneumonia, who presented to the ED from his primary care provider office for increased unintentional weight loss. It was noted the patient had a 20 lb weight loss within 1 month. Speech therapy was consulted for a swallow study which did show the patient was aspirating on all liquids. Patient also had some episodes of nausea vomiting while being admitted. GI was consulted and patient was taken to the GI lab for PEG tube placement. Patient was not started on tube feedings and has been tolerating his tube feeding since. religious educator was also consulted and recommended insulin doses. Patient has been up walking with PT and OT. Patient denies any complaints of urinary dysfunction or chest pain or shortness of breath. Patient does feel better t
[2021-05-09 11:56] LABS: Glucose Point of Care 197 mg/dl (65-105)
--- NOTE | 2021-05-09 12:03 | WPDGIPROGNO ---
Progress Note: A&P Assessment and Plan (1) Dysphagia: Qualifiers: Dysphagia type: unspecified Qualified Code(s): R13.10 - Dysphagia, unspecified Code(s): R13.10 - Dysphagia, unspecified Status: Acute Assessment and Plan: tolerating tube feeding using G-tube, no complications ok to discharge by GI standpoint (2) Aspiration into respiratory tract: Code(s): T17.908A - Unspecified foreign body in respiratory tract, part unspecified causing other injury, initial encounter Status: Acute (3) Gastroparesis due to DM: Code(s): E11.43 - Type 2 diabetes mellitus with diabetic autonomic (poly)neuropathy; K31.84 - Gastroparesis Status: Acute Assessment and Plan: on e-mycin DM control (4) Weight loss, non-intentional: Code(s): R63.4 - Abnormal weight loss Status: Acute (5) Atypical pneumonia: Code(s): J18.9 - Pneumonia, unspecified organism Status: Acute Subjective Date/time seen: 05/09/21 12:03 Interval history: he is tolerating tube feeding, no abdominal discomfort. Review of Systems Review of Systems: All systems reviewed & are unremarkable except as noted in HPI and below Exam Const: General: no acute distress Other: thin, cachectic HENMT: Other: DHT in place now, tube feeding Eyes: Sclera: sclerae normal Neck: Neck: supple Resp: Auscultation: clear to auscultation bilaterally Cardio: Rate: regular rate GI: GI Palp: Yes Soft to palpation, No Tenderness to palpation present (GI) and No Guarding due to palpation present (GI) Auscultation: normal bowel sounds Other: G-tube in place, site looks ok and clean Neuro: Speech: normal speech Motor exam (neuro): Normal motor muscle tone present throughout Extrem: General: normal to inspection Psych: Mental Status: mental status grossly normal Objective Data Vital Signs Vital Signs: Vital Signs - 24 hr 05/08/21 15:17 05/08/21 18:50 05/09/21 05:46 Temperature 97.5 F L 97.8 F 98 F Pulse Rate 78 53 L 64 Respiratory Rate 18 16 12 Blood Pressure 104/63 126/71 127/67 Pulse Oximetry 100 100 94 Intake/Output Intake/Output: Intake & Output 11/06/21 05/08/21 05/08/21 05/09/21 00:59 00:59 23:59 23:59 Intake Total 0 Output Total 0 Balance 0 Meds/Results Medications: Active Medications Generic Name Dose Route Start Last Admin Trade Name Freq PRN Reason Stop Dose Admin Acetaminophen 1,000 mg 05/06/21 15:52 05/07/21 12:32 Acetaminophen 500 Mg Tablet PO 1,000 mg Q6H PRN Administration Mild Pain (1-3) or Fever Erythromycin 250 mg 05/07/21 06:30 05/09/21 09:27 Erythromycin 250 Mg Tablet XX 250 mg AC ANJUM Administration Insulin Aspart 4 units 05/05/21 18:00 05/09/21 06:16 Insulin Aspart (*Bkc) 100 Units/Ml SUB-Q 4 units Q6HR ANJUM Administration Insulin Glargine 15 units 05/07/21 21:00 05/08/21 20:39 Insulin Glargine (*Bkc) 100 Units/Ml SUB-Q 15 units HS ANJUM Administration Lansoprazole 30 mg 05/07/21 06:30 05/09/21 06:15 Lansoprazole Oral Susp 30 Mg/10 Ml Oral.Susp FEED TUBE 30 mg DAILY@0630 ANJUM Administration Lisinopril 2.5 mg 05/04/21 09:00 05/09/21 09:26 Lisinopril 2.5 Mg Tablet PO 2.5 mg DAILY ANJUM Administration Ondansetron HCl 4 mg 05/03/21 19:03 05/06/21 15:52 Ondansetron Inj 4 Mg/2 Ml Vial IV PUSH 4 mg Q4H PRN Administration Nausea Pravastatin Sodium 80 mg 05/06/21 21:00 05/08/21 20:39 Pravastatin Sodium 20 Mg Tablet FEED TUBE 80 mg HS ANJUM Administration Sucralfate 1,000 mg 05/06/21 21:00 05/09/21 09:27 Sucralfate Susp 100 Mg/Ml 10 Ml Udc FEED TUBE 1,000 mg ACHS ANJUM Administration Tramadol HCl 25 mg 05/06/21 15:53 05/07/21 17:02 Tramadol Hcl (*Crx) 25 Mg Tablet PO 25 mg Q6H PRN Administration Pain Rated 4-10 Radiology Results: ITS Impressions Chest X-Ray 05/03/21 14:41 IMPRESSION: Small amount of bibasilar pneu
== END 2021-05-09 14:10 | disposition home health service (06) | DRG 641 ==
LOC: ANHED 18:35 → ANH3MEDSUR 20:12
PROVIDERS: Emergency Medicine; Internal Medicine Gastroenterology; Admitting Provider Internal Medicine; Emergency Provider General Practice; PCP Internal Medicine; Visit Provider Nurse Practitioner
PROC: 0DJ08ZZ Inspection of Upper Intestinal Tract, Via Natural or Artificial Opening Endoscopic (ICD-10-PCS; CPT 43235; principal; 2021-05-06 12:30)
PROC: 0DH63UZ Insertion of Feeding Device into Stomach, Percutaneous Approach (ICD-10-PCS; CPT 43246; 2021-05-06 12:30)
DX: R62.7 Adult failure to thrive (principal); E44.0 Moderate protein-calorie malnutrition; Z68.1 Body mass index [BMI] 19.9 or less, adult; N17.9 Acute kidney failure, unspecified; E87.6 Hypokalemia; K31.84 Gastroparesis; Z79.4 Long term (current) use of insulin; E78.5 Hyperlipidemia, unspecified; K20.90 Esophagitis, unspecified without bleeding; R13.10 Dysphagia, unspecified; E10.65 Type 1 diabetes mellitus with hyperglycemia; E10.43 Type 1 diabetes mellitus with diabetic autonomic (poly)neuropathy; T17.908A Unspecified foreign body in respiratory tract, part unspecified causing other injury, initial encounter; X58.XXXA Exposure to other specified factors, initial encounter; Y93.9 Activity, unspecified; Y92.9 Unspecified place or not applicable; Y99.9 Unspecified external cause status
CPT/HCPCS: 36415; 43246; 43752; 71046; 80048; 80053; 81001; 82948; 83735; 85025; 85055; 92611; 93005; 96361; 97110; 97116; 97161; 97165; 99285; A9270; C9113; G0378; J0690; J1815; J2405; J2704; J3480; J7030; J7120

== ENCOUNTER 2021-05-13 12:10 | Emergency (ER) | payer MEDICARE, MEDICAID, SELFPAY ==
--- NOTE | ~2021-05-13 | XR_ITS ---
EXAMINATION: XR chest 1V portable EXAM DATE: 05/13/2021 15:59 INDICATION: Cough/ Fever/ Chills X 1 Day . TECHNIQUE: Portable AP frontal chest x-ray was obtained. Comparison is made to prior examination from 05/03/2021. FINDINGS: Mild chronic hyperinflation. The lungs are hyperinflated which can be seen with chronic obs tructive pulmonary disease (a clinical diagnosis of functional impairment), but is not diagnostic of it. No confluent consolidation, pneumothorax or pleural effusion suspected. Old right 6th rib fractur e posterolaterally. IMPRESSION: Chronic hyperinflation. Reviewed, dictated and finalized at location A. WELDER APPRENTICE IMPRESSION: Chronic hyperinflation.
[2021-05-13 12:45] VITALS: BP 121/64; PULSE 78; RESP 16; TEMP 37.1; O2SAT 100
[2021-05-13 12:55] LABS: Basophils Percent Auto 0.1 % (0.2-1.2); Eosinophils Percent Auto 0.1 % (0-4.4); Hematocrit 33.6 % (42.0-52.0); Hemoglobin 11.1 g/dL (14.0-18.0); Immature Granulocyte Absolute 0.03 K/mm3 (0.00-0.031); Immature Granulocyte Percent A 0.3 % (0-0.5); Lymphocytes Absolute Auto 0.64 K/mm3 (0.9-3.2); Lymphocytes Percent Auto 6.6 % (18.3-44.2); Mean Corpuscular Hemoglobin 29.4 pg (26-34); Mean Corpuscular Volume 89.1 fl (80-100); Mean Platelet Volume 9.3 fl (7.4-10.4); Monocytes Absolute Auto 0.6 K/mm3 (0.1-0.6); Monocytes Percent Auto 6.6 % (2.6-8.5); Neutrophils Absolute Auto 8.4 K/mm3 (1.3-6.7); Neutrophils Percent Auto 86.3 % (45.5-73.1); Platelet Count Result 185 k/mm3 (150-375); Red Blood Count 3.77 M/mm3 (4.6-6.20); Red Cell Distribution Width 13.5 % (11.5-14.5); White Blood Count 9.7 K/mm3 (4.5-10.0)
[2021-05-13 13:06] LABS: Alanine Aminotransferase 27 U/L (4-50); Albumin Level 3.7 g/dL (3.5-5.1); Alkaline Phosphatase 98 U/L (38-126); Anion Gap 8 mmol/L (8-16); Aspartate Amino Transferase 33 U/L (17-59); Bilirubin,Total 0.3 mg/dL (0.2-1.3); Blood Urea Nitrogen 30 mg/dL (9-20); Calcium 8.7 mg/dL (8.4-10.2); Carbon Dioxide 32 mmol/L (22-30); Chloride 94 mmol/L (98-107); Estimated CRCL calculation 72 ml/min; Estimated Glomerular Filt Rate > 60; Glucose 280 mg/dL (65-110); Lipase 108 U/L (23-300); Potassium 4.3 mmol/L (3.4-5.0); Sodium 134 mmol/L (137-145)
[2021-05-13 13:20] LABS: Add Urine Microscopic? YES; Appearance Urine Clear (Clear); Bilirubin Urine Negative (Negative); Blood Urine Negative (Negative); Color Urine Yellow (Yellow); Glucose Urine UA 3+ mg/dL (Negative); Ketones Urine Negative (Negative); Leukocyte Esterase Ur Negative LEU/UL (Negative); Mucus Urine Rare /lpf; Nitrate Urine Negative (Negative); Protein Urine 2+ mg/dL (Negative); Specific Grav Ur 1.025 (1.001-1.035); Urobilinogen Urine Negative mg/dL (<2.0); WBC Urine 0-3 /hpf
--- NOTE | 2021-05-13 15:20 | ED.GENADULT ---
HPI - General Adult General Chief complaint: Fever Stated complaint: fever Time Seen by Provider: 05/13/21 15:07 History of Present Illness HPI narrative: Patient is a 65-year-old male with past medical history significant for type 1 diabetes mellitus, gastroparesis, dysphagia with aspiration pneumonia and recent NG tube placement, hypertension who comes to the ED today with a fever. Patient reports that his home health nurse noted a fever and his PCP recommended he come in for evaluation and chest x-ray. Patient reports that since this morning he has been having intermittent chills, intermittent cough and he vomited one time which she says which is a small amount of liquid. He does not know what his temperature was at home, but we called the home health nurse who says it was 101.4 at around 1030 and then about an hour later it was 100.2. He did not take any Tylenol or ibuprofen. Now his temperature is within normal limits upon arrival to ED Related Data Home Medications Medication Instructions Recorded Confirmed Dexcom G6 Sensor 03/25/21 05/03/21 Melisaaglar KwikPen U-100 Insulin 18 unit SUBCUT HS 05/04/21 05/04/21 Allergies Allergy/AdvReac Type Severity Reaction Status Date / Time No Known Allergies Allergy Verified 05/06/21 10:56 Review of Systems Constitutional: Constitutional: Reports as per HPI, Reports fever(s), Denies night sweats and Denies weakness Cardiovascular: Cardiovascular: Denies chest pain, Denies edema, Denies leg edema, Denies dyspnea and Denies orthopnea Respiratory: Respiratory: Reports cough and Denies dyspnea Gastrointestinal: Gastrointestinal: Denies abdominal pain, Denies constipation, Denies diarrhea, Denies nausea and Denies vomiting Musculoskeletal: Musculoskeletal: Denies abnormal gait, Denies back pain, Denies numbness and Denies tingling Neurologic: Denies Abnormal speech present, Denies abnormal gait, Denies numbness, Denies tingling and Denies weakness Psychiatric: Psychiatric: Denies homicidal ideation and Denies suicidal ideation PMF Past Medical History Medical History Aspiration into respiratory tract Dysphagia Encounter for feeding tube placement Esophagitis Gastroparesis due to DM History of gastrostomy tube placement Which has been removed Hyperlipidemia Leukocytosis SIRS (systemic inflammatory response syndrome) Type 1 diabetes mellitus with hyperglycemia Surgical History Surgical History H/O knee surgery Broken knee 12/2019 left knee History of cataract extraction Family History Family History Sibling Diabetes mellitus Family history of lung cancer Father Family history of cardiovascular disease Heart disease Mother Diabetes mellitus Hypertension Family history of thyroid problem Social History Social History Social History: The patient lives with his brother and sister. The patient is a lifelong nonsmoker. He does not use any alcohol marijuana or illicit drugs. 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 The patient stated that his brother and sister would be the durable power disability attorney for healthcare. The patient is a full code. Smoking status: Never smoker Second hand tobacco smoke exposure: Yes Alcohol intake: never Substance use: never Substance use type: does not use Spiritual care concerns: No Exam Narrative: Thin and frail. Alert and cooperative and comfortable appearing. Const: General: cooperative, comfortable, no acute distress, alert, awake and Physically active Orientation/consciousness: patient oriented x3 HENMT: Head: normal to inspection, normocephalic and atraumatic Ears: external ears normal General nose exam: Normal external nose present Eyes: Pupils: Equal, round and
[2021-05-13 17:32] VITALS: PULSE 86; RESP 18; O2SAT 99
[2021-05-14 17:30] LABS: SARS-CoV-2 RNA PCR Positive
== END 2021-05-13 17:33 | disposition home or self-care (01) ==
PROVIDERS: Physician Assistant Medical; Emergency Provider Emergency Medicine; PCP Internal Medicine
DX: U07.1 COVID-19 (principal); E78.5 Hyperlipidemia, unspecified; E10.9 Type 1 diabetes mellitus without complications
CPT/HCPCS: 36415; 71045; 80053; 81001; 83690; 85025; 99283; C9803; U0003; U0005